=== PATIENT | male | born 1980 | race Caucasian/White ===

== ENCOUNTER 2020-04-14 23:41 | Emergency (ER) | payer OTHER, SELFPAY ==
--- NOTE | ~2020-04-14 | CT_ITS ---
EXAMINATION: CT abdomen pelvis w con DATE: 04/15/2020 00:57 INDICATION: Right lower quadrant abdominal pain. TECHNIQUE: Computed tomography (CT) of the abdomen and pelvis was performed with 100 mL Omnipaque 350 intravenous contrast. Automated exposure control and iterative reconstruction technique were employe d. The dose-length product was 601.55 mGy-cm. COMPARISON: CT abdomen 11/05/2018 FINDINGS: The visualized portions of the lung bases demonstrate mild atelectasis. No pleural effusion . The heart size is normal. No pericardial effusion. There is a large sliding hiatal hernia. The live r, gallbladder, spleen, pancreas, and adrenal glands are normal. There is a 2 mm stone in right kidne y. There are 2 mm and 3 mm stones in left kidney. The appendix is normal. There is wall thickening of ascending colon. There are no dilated loops of bowel. There are no pathologically enlarged lymph nod es. There are changes of umbilical hernia repair. There is a supraumbilical ventral hernia containing fat. There is no free intraperitoneal fluid. There is mild thoracolumbar spondylosis. IMPRESSION: 1. New wall thickening of ascending colon, consistent with colitis. 2. Large sliding hiatal hernia. Reviewed, dictated and finalized at location A.
[2020-04-14 23:51] VITALS: BP 137/89; PULSE 94; RESP 18; TEMP 36.6; O2SAT 97
--- NOTE | 2020-04-15 00:10 | ED.ABDPAIN ---
HPI - Abdominal Pain General Chief Complaint: Abdominal Pain Stated Complaint: RLQ abd pain Time Seen by Provider: 04/14/20 23:45 Source: patient Mode of arrival: ambulatory Limitations: no limitations History of Present Illness HPI narrative: Patient is a 39-year-old male who presents for evaluation of right lower quadrant pain. Pain is been present worsening over the past 48 hours. Described as dull, aching in nature at times it is sharp. No testicular pain, penile pain, dysuria, hematuria or frequency. No upper abdominal pain or chest pain. No fever, chills, nausea or vomiting. Patient was concerned he could have appendicitis, thus he sought care at this emergency department. Patient has history of hernia surgery repair, no other abdominal surgeries. Related Data Home Medications Medication Instructions Recorded Confirmed amlodipine 5 mg tablet 5 mg PO DAILY 09/28/19 12/02/19 melatonin 10 mg capsule PO DAILY cap 09/28/19 12/02/19 omeprazole 20 mg capsule,delayed 20 mg PO DAILY 09/28/19 12/02/19 release ibuprofen 600 mg tablet 600 mg PO TID PRN 12/02/19 12/02/19 ferrous sulfate 325 mg (65 mg 325 mg PO DAILY 01/11/20 iron) tablet ncizhogi-uhs-okhge-vit K-lycop 1 tablet PO DAILY 04/15/20 [Men's Multivitamin] Allergies Allergy/AdvReac Type Severity Reaction Status Date / Time No Known Allergies Allergy Unverified 12/22/18 07:40 Review of Systems Review of Systems: Narrative: CONSTITUTIONAL: Denies fever, chills, or sweats. CARDIOVASCULAR: Denies chest pain RESPIRATORY: Denies cough or dyspnea. GASTROINTESTINAL: Reports right lower quadrant abdominal pain GENITOURINARY: Denies dysuria or hematuria. SKIN: Denies rash or itching. MUSCULOSKELETAL: Denies back pain, joint pain, or myalgia. NEUROLOGIC: Denies headache, numbness, or weakness. [facility] Past Medical History Medical History (Updated 04/15/20 @ 03:15 by Erlinda Valentin MD) Essential (primary) hypertension Iron deficiency Lightheadedness Mixed hyperlipidemia Surgical History Surgical History (Updated 04/15/20 @ 00:12 by Erlinda Valentin MD) History of hernia surgery Family History Family History (Updated 05/25/19 @ 08:02 by DOCTOR UNKNOWN) Mother Patient's mother is , Onset Age: 53 Asthma Family history of alcoholism Family history of malignant neoplasm Sibling Patient's sister is in good health Patient's brother is in good health Other Diabetes mellitus Social History Social History Smoking status: Never smoker Alcohol intake: current Gender identity (if verbalized by the patient): Male Exam Narrative: Exam Narrative: GENERAL: Awake, alert, conversant HEAD: Normocephalic, atraumatic. EYES: PERRLA and EOMI. ENT: Nares clear, no rhinorrhea or epistaxis. Mucous membranes moist. NECK: Supple. CHEST: No respiratory distress, breathing even and non labored HEART: Regular rate, sinus rhythm ABDOMEN:Non distended, right lower quadrant tenderness, no right upper quadrant tenderness, negative Rovsing sign, no rebound or guarding EXTREMITIES: Normal range of motion. No edema. SKIN: Warm, dry, no rash. NEURO:No focal deficits. Alert and oriented x3 Course Vital Signs Vital signs: Vital Signs Temperature 36.6 C 04/14/20 23:51 Pulse Rate 94 04/14/20 23:51 Respiratory Rate 18 04/14/20 23:51 Blood Pressure 137/89 04/14/20 23:51 Pulse Oximetry 97 04/14/20 23:51 Temperature 36.6 C 04/14/20 23:51 Pulse Rate 82 04/15/20 01:35 Respiratory Rate 16 04/15/20 01:35 Blood Pressure 126/87 04/15/20 01:35 Pulse Oximetry 98 04/15/20 01:35 MDM - Abdominal Pain MDM Narrative Medical decision making narrative: Patient presented to the emergency department for evaluation of right-sided abdominal pain. At the time of assessment ABCs are intact and vital signs are stable. Patient with right lower quadrant abdominal ten
[2020-04-15] MEDS: ONDANSETRON INJ 4 MG/2 ML VIAL IV PUSH (00:15)
[2020-04-15] MEDS: MORPHINE SULFATE 4 MG/ML INJ IV PUSH (00:18)
[2020-04-15] MEDS: SODIUM CHLORIDE 0.9% IV 1,000 ML 999 ML IV CONT (00:20)
[2020-04-15 00:28] LABS: Basophils Absolute Auto 0.1 K/mm3 (0.0-0.1); Basophils Percent Auto 0.4 % (0.2-1.2); Eosinophils Absolute Auto 0.3 K/mm3 (0-0.3); Eosinophils Percent Auto 2.3 % (0-4.4); Hematocrit 41.4 % (42.0-52.0); Hemoglobin 14.2 g/dL (14.0-18.0); Immature Granulocyte Absolute 0.04 K/mm3 (0.00-0.031); Immature Granulocyte Percent A 0.3 % (0-0.5); Lymphocytes Absolute Auto 1.86 K/mm3 (0.9-3.2); Lymphocytes Percent Auto 14.1 % (18.3-44.2); Mean Corpuscular HGB Conc 34.3 g/dl (32-36); Mean Corpuscular Hemoglobin 31.6 pg (26-34); Mean Platelet Volume 11.6 fl (7.4-10.4); Monocytes Percent Auto 7.6 % (2.6-8.5); Neutrophils Percent Auto 75.3 % (45.5-73.1); Platelet Count Result 198 k/mm3 (150-375); Red Cell Distribution Width 13.5 % (11.5-14.5); White Blood Count 13.2 K/mm3 (4.5-10.0)
[2020-04-15 00:39] LABS: Alanine Aminotransferase 19 U/L (4-50); Albumin Level 4.1 g/dL (3.5-5.1); Alkaline Phosphatase 80 U/L (38-126); Aspartate Amino Transferase 31 U/L (17-59); Bilirubin,Total 0.4 mg/dL (0.2-1.3); Blood Urea Nitrogen 21 mg/dL (9-20); Calcium 8.7 mg/dL (8.4-10.2); Carbon Dioxide 25 mmol/L (22-30); Chloride 104 mmol/L (98-107); Estimated CRCL calculation 112 ml/min; Estimated Glomerular Filt Rate > 60; Glucose 95 mg/dL (75-110); Lipase 43 U/L (23-300); Potassium 4.1 mmol/L (3.4-5.0); Sodium 136 mmol/L (137-145)
[2020-04-15 01:35] VITALS: BP 126/87; PULSE 82; RESP 16; O2SAT 98
[2020-04-15 02:32] LABS: Add Urine Microscopic? YES; Appearance Urine Clear (Clear); Bilirubin Urine Negative (Negative); Blood Urine Negative (Negative); Color Urine Yellow (Yellow); Glucose Urine UA Negative (Negative); Ketones Urine Negative (Negative); Leukocyte Esterase Ur Negative LEU/UL (Negative); Mucus Urine Rare /lpf; Nitrate Urine Negative (Negative); Protein Urine Negative (Negative); RBC Urine 0-2 /hpf (0-2); Specific Grav Ur 1.026 (1.001-1.035); Squamous Epithelial Cell Urine Rare /hpf (Few); Urobilinogen Urine Negative mg/dL (<2.0); WBC Urine 0-3 /hpf
== END 2020-04-15 01:35 | disposition home or self-care (01) ==
LOC: ANHED 23:58
PROVIDERS: Emergency Provider Emergency Medicine; PCP Family Medicine
DX: K52.9 Noninfective gastroenteritis and colitis, unspecified (principal); I10 Essential (primary) hypertension; E78.2 Mixed hyperlipidemia; D50.9 Iron deficiency anemia, unspecified
CPT/HCPCS: 36415; 74177; 80053; 81001; 83690; 85025; 96361; 96374; 96375; 99284; J0131; J2270; J2405; J7030; Q9967

== ENCOUNTER 2020-11-29 11:33 | Emergency (ER) | payer OTHER, SELFPAY ==
--- NOTE | ~2020-11-29 | XR_ITS ---
EXAMINATION: XR chest 2V EXAM DATE: 11/29/2020 12:06 INDICATION: Acute onset midsternal chest pain. TECHNIQUE: Frontal and lateral projections of the chest obtained and reviewed. Comparison is made to prior examination from 07/14/2018. FINDINGS: There is moderate sliding gastroesophageal hiatal hernia. The lungs are clear. There are no pleural effusions. The cardiomediastinal silhouette is within normal limits. There is no pneumo thorax suspected. The bones and soft tissues are unremarkable. IMPRESSION: Moderate sized gastroesophageal hiatal hernia. Reviewed, dictated and finalized at location B. [employer]
[2020-11-29 11:37] VITALS: BP 138/93; PULSE 90; RESP 16; TEMP 36.2; O2SAT 95
--- NOTE | 2020-11-29 11:41 | ECG_ITS ---
Measurements Intervals [place] Rate: 92 P: 44 AR: 141 QRS: -16 QRSD: 94 T: 24 QT: 335 QTc: 415 Interpretive Statements SINUS RHYTHM BORDERLINE T WAVE ABNORMALITY- INFERIOR LEADS BASELINE WANDER- V2 BORDERLINE ECG Electronically Signed On 11-29-2020 11:47:52 [employer] by Angel Callahan D.O.
[2020-11-29] MEDS: ASPIRIN 81 MG CHEWABLE TABLET 324 MG PO (11:46)
[2020-11-29 11:47] VITALS: PULSE 90
--- NOTE | 2020-11-29 11:55 | ED.CHESTPAIN ---
HPI - Chest Pain General Chief Complaint: Chest Pain Stated Complaint: chest pain Time Seen by Provider: 11/29/20 11:43 History of Present Illness HPI narrative: Constant substernal chest pressure for the past 2-3 hours. Associated with mild SOB. He reports one prior episode a few years ago. At that time he was told that it was due to high blood pressure. He has been out of his BP medication for a few days. He called his PCP this morning to get a refill and they told him to come here. No fever, chills. cough, cough, congestion, nausea. Related Data Home Medications Medication Instructions Recorded Confirmed melatonin 10 mg capsule PO DAILY cap 09/28/19 12/02/19 omeprazole 20 mg capsule,delayed 20 mg PO DAILY 09/28/19 12/02/19 release ibuprofen 600 mg tablet 600 mg PO TID PRN 12/02/19 12/02/19 ferrous sulfate 325 mg (65 mg 325 mg PO DAILY 01/11/20 iron) tablet mfpzahan-xfw-ybstn-vit K-lycop 1 tablet PO DAILY 04/15/20 [Men's Multivitamin] Allergies Allergy/AdvReac Type Severity Reaction Status Date / Time No Known Allergies Allergy Verified 11/29/20 11:41 Review of Systems Review of Systems: All systems reviewed & are unremarkable except as noted in HPI and below Constitutional: Constitutional: Denies chills, Denies fever(s) and Denies weakness ENT: Denies sore throat Cardiovascular: Cardiovascular: Reports chest pain Respiratory: Respiratory: Denies chest congestion, Denies cough and Reports dyspnea Gastrointestinal: Gastrointestinal: Denies abdominal pain and Denies nausea Neurologic: Denies dizziness, Denies numbness and Denies weakness [facility] Past Medical History Medical History Acute bronchitis COVID-19 Essential (primary) hypertension Exposure to COVID-19 virus Fever Iron deficiency Lightheadedness Mixed hyperlipidemia Surgical History Surgical History History of hernia surgery Family History Family History Mother Patient's mother is , Onset Age: 53 Asthma Family history of alcoholism Family history of malignant neoplasm Sibling Patient's sister is in good health Patient's brother is in good health Other Diabetes mellitus Social History Social History Smoking status: Never smoker Alcohol intake: current Gender identity (if verbalized by the patient): Male Exam Const: General: healthy appearing, no acute distress and alert Orientation/consciousness: patient oriented x3 HENMT: Head: normal to inspection Neck: Neck: normal visual inspection and no lymphadenopathy Chest: Chest palpation & inspection: no tenderness Resp: Effort & Inspection: normal respiratory effort Auscultation: clear to auscultation bilaterally, no rales, no rhonchi and no wheezes Cardio: Jugular venous distension: no JVD Rate: regular rate Rhythm: regular rhythm Heart sounds: no murmurs GI: Inspection: non-distended GI Palp: Yes Soft to palpation and No Tenderness to palpation present (GI) Skin: General skin exam: normal color Neuro: General: patient oriented x3, moves all extremities, no focal motor deficits and CN's II-XI intact bilaterally Speech: normal speech Extrem: General: normal to inspection and no edema Psych: Appearance: well kempt Affect: Anxious affect present Course Vital Signs Vital signs: Vital Signs Temperature 36.2 C L 11/29/20 11:37 Pulse Rate 90 11/29/20 11:37 Respiratory Rate 16 11/29/20 11:37 Blood Pressure 138/93 H 11/29/20 11:37 Pulse Oximetry 95 11/29/20 11:37 Temperature 36.2 C L 11/29/20 11:37 Pulse Rate 80 11/29/20 13:10 Respiratory Rate 16 11/29/20 13:10 Blood Pressure 113/60 11/29/20 13:10 Pulse Oximetry 98 11/29/20 13:10 MDM - Chest Pain MDM Narrative Medical d
[2020-11-29] MEDS: amLODIPine BESYLATE 5 MG TABLET PO (12:00)
[2020-11-29 12:03] LABS: Basophils Percent Auto 0.5 % (0.2-1.2); Eosinophils Absolute Auto 0.4 K/mm3 (0-0.3); Eosinophils Percent Auto 4.7 % (0-4.4); Hematocrit 41.7 % (42.0-52.0); Hemoglobin 14.3 g/dL (14.0-18.0); Immature Granulocyte Absolute 0.02 K/mm3 (0.00-0.031); Immature Granulocyte Percent A 0.3 % (0-0.5); Lymphocytes Absolute Auto 1.92 K/mm3 (0.9-3.2); Lymphocytes Percent Auto 25.3 % (18.3-44.2); Mean Corpuscular HGB Conc 34.3 g/dl (32-36); Mean Corpuscular Hemoglobin 31.7 pg (26-34); Mean Corpuscular Volume 92.5 fl (80-100); Mean Platelet Volume 11.7 fl (7.4-10.4); Monocytes Absolute Auto 0.7 K/mm3 (0.1-0.6); Monocytes Percent Auto 8.9 % (2.6-8.5); Neutrophils Absolute Auto 4.6 K/mm3 (1.3-6.7); Neutrophils Percent Auto 60.3 % (45.5-73.1); Platelet Count Result 195 k/mm3 (150-375); Red Blood Count 4.51 M/mm3 (4.6-6.20); Red Cell Distribution Width 12.6 % (11.5-14.5); White Blood Count 7.6 K/mm3 (4.5-10.0)
[2020-11-29 12:12] LABS: Anion Gap 6 mmol/L (8-16); Blood Urea Nitrogen 22 mg/dL (9-20); Calcium 8.5 mg/dL (8.4-10.2); Carbon Dioxide 26 mmol/L (22-30); Chloride 109 mmol/L (98-107); Estimated CRCL calculation 101 ml/min; Estimated Glomerular Filt Rate > 60; Glucose 97 mg/dL (75-110); Potassium 3.9 mmol/L (3.4-5.0); Sodium 141 mmol/L (137-145)
[2020-11-29] MEDS: NITROGLYCERIN SL 0.4 MG TABLET SUBLINGUAL (12:12)
--- NOTE | 2020-11-29 12:13 | PC.NURSE ---
Nitro given SL. Pain 03/06. BP 131/87 P90.
[2020-11-29 12:16] LABS: INR 0.9; Prothrombin Time 12.7 Seconds (11.1-14.7)
--- NOTE | 2020-11-29 12:17 | PC.NURSE ---
Nitro given SL. Pain 03/06. BP 131/78 P90.
[2020-11-29 12:19] LABS: Partial Thromboplastin Time 25.9 SECONDS (22.3-36.8); Troponin I < 0.012 ng/mL (0.000-0.034)
--- NOTE | 2020-11-29 12:28 | PC.NURSE ---
Nitro given SL. Pain 02/04. States only has pain with deep inspiration now. BP 131/85 P 85.
[2020-11-29 13:10] VITALS: BP 113/60; PULSE 80; RESP 16; O2SAT 98
== END 2020-11-29 13:11 | disposition home or self-care (01) ==
PROVIDERS: Emergency Provider Emergency Medicine; PCP Family Medicine
DX: R07.89 Other chest pain (principal); K44.9 Diaphragmatic hernia without obstruction or gangrene; I10 Essential (primary) hypertension; E78.2 Mixed hyperlipidemia; Z86.16 Personal history of COVID-19; E61.1 Iron deficiency; R94.31 Abnormal electrocardiogram [ECG] [EKG]
CPT/HCPCS: 36415; 71046; 80048; 84484; 85025; 85610; 85730; 93005; 99284; A9270

== ENCOUNTER 2021-07-26 11:25 | Observation (INO) | payer OTHER, SELFPAY ==
[2021-07-26] VITALS (36 sets, daily range): BP systolic 126–145; BP diastolic 89–103; PULSE 77–121; RESP 8–27; TEMP 36.3–37.2; O2SAT 92–99; BMI 24.5
--- NOTE | ~2021-07-26 | XR_ITS ---
XR chest 1V portable 07/26/2021 12:05 Indication: Chest pain and dyspnea Procedure: AP portable chest Comparison: Comparison to multiple prior studies sequentially, with oldest reviewed study dated 04/24. Findings: Heart size normal. No focal air space disease, pulmonary edema, pleural effusion or suspect ed pneumothorax. Large hiatal hernia. Impression: 1: No acute cardiopulmonary disease. 2: Large hiatal hernia. Reviewed, dictated and finalized at location A. Impression: 1: No acute cardiopulmonary disease. 2: Large hiatal hernia.
--- NOTE | ~2021-07-26 | CT_ITS ---
EXAMINATION: CTA chest PE protocol DATE: 07/26/2021 12:15 INDICATION: Chest pain, shortness of breath, dyspnea TECHNIQUE: Computed tomography angiography (CTA) of the chest was performed with 100 mL Omnipaque-350 intravenous contrast timed to evaluate the pulmonary arteries. Coronal maximum intensity projection 3D-reconstructions were created by the technologist. Automated exposure control and iterative reconst ruction technique were employed. Exam dose: 390.62 mGy-cm total exam DLP. COMPARISON: 07/26/2021 AP portable chest FINDINGS: There is diagnostic contrast enhancement of the pulmonary arteries and no evidence of pulmo nary embolism. No thoracic aortic aneurysm or dissection. No hilar or mediastinal mass lesion or lymphadenopathy. Normal heart size. No pericardial or pleural effusion. Large sliding hiatal hernia. There is associated mild compressive atelectasis at the left lower lobe due to the large hiatal hernia. There is mild groundglass infiltrate and/or scarring at the right apex, minimal left apical scarring. Otherwise no pulmonary infiltrate or consolidation or pulmonary mass lesion is noted. Normal morphology of the adrenal glands. Included skeletal structures are unremarkable other than mild degenerative spurring of the thoracic s pine. No suspicious osteolytic or osteoblastic lesions. IMPRESSIONS: No evidence of pulmonary embolism Minimal groundglass infiltrate and/or scarring, right apical area, minimal left apical scarring Large sliding hiatal hernia with associated minimal surrounding compressive left lower lobe atelectas is Reviewed, dictated and finalized at Location A. Reviewed, dictated and finalized at location B. IMPRESSIONS: No evidence of pulmonary embolism Minimal groundglass infiltrate and/or scarring, right apical area, minimal left apical scarring Large sliding hiatal hernia with associated minimal surrounding compressive lef t lower lobe atelectasis
--- NOTE | ~2021-07-26 | US_ITS ---
EXAMINATION: US abdomen limited EXAM DATE: 07/27/2021 11:09 INDICATION: Epigastric pain. TECHNIQUE: Multiple grayscale and Doppler images of the abdomen right upper quadrant were obtained (jesus y a technologist who performed the scan) and subsequently reviewed. There is no prior study for ally alarcon. FINDINGS: The pancreatic head and body are normal in appearance. The pancreatic tail is not visualized. The l iver has normal echogenicity and contour. There are no focal liver lesions identified. There is no evidence of intrahepatic biliary duct dilation. Portal venous flow was seen in the hepatopedal, nor mal direction and has normal Doppler waveform. No right-sided hydronephrosis. Common bile duct measures 4 mm, which is normal. The gallbladder wall is normal in thickness, with ex pected amount of distention. No sonographic evidence of pericholecystic fluid. There is no cholelit hiases. Technologist performing exam reports patient did not demonstrate sonographic Bazzi's sign. Please note that this sign is less reliable in patients who have received pain medication. IMPRESSION: 1. Unremarkable abdominal ultrasound exam. Reviewed, dictated and finalized at location A.
--- NOTE | 2021-07-26 11:38 | ECG_ITS ---
Measurements Intervals [place] Rate: 95 P: 49 MA: 136 QRS: -17 QRSD: 92 T: 35 QT: 340 QTc: 428 Interpretive Statements SINUS RHYTHM POSSIBLE LEFT ATRIAL ENLARGEMENT INCOMPLETE RIGHT BUNDLE BRANCH BLOCK BASELINE ARTIFACT- I, II, AVR, AVF, V1, V3-V6 BORDERLINE ECG Electronically Signed On 07-26-2021 13:01:30 CDT by Angel Callahan D.O.
--- NOTE | 2021-07-26 11:40 | ED.CHESTPAIN ---
HPI - Chest Pain General Chief Complaint: Chest Pain Stated Complaint: CHEST PRESSURE Time Seen by Provider: 07/26/21 11:29 Source: RN notes reviewed History of Present Illness HPI narrative: Patient presents emergency department from home for chest pain. Patient states pain began this morning upon awaking is located in the midsternal chest described as a pressure in nature and does not radiate he states is progressively gotten worse he states the pain is worse with activity and improved with rest but does not resolve notes mild associated shortness of breath he denies any fevers or chills abdominal pain nausea vomiting or any other symptoms states he took ibuprofen at home for the pain with minimal relief Related Data Home Medications Medication Instructions Recorded Confirmed omeprazole 20 mg capsule,delayed 20 mg PO DAILY 09/28/19 04/05/21 release ibuprofen 600 mg tablet 600 mg PO TID PRN 12/02/19 04/05/21 iulwoemp-tof-upliu-vit K-lycop 1 tablet PO DAILY 04/15/20 04/05/21 [Men's Multivitamin] melatonin 10 mg capsule 5 mg PO DAILY cap 04/05/21 04/05/21 Allergies Allergy/AdvReac Type Severity Reaction Status Date / Time No Known Allergies Allergy Verified 07/26/21 11:33 Review of Systems Review of Systems: Gen.: Denies fevers or chills ENT: Denies congestion Respiratory: Denies shortness of breath or cough CV: See HPI GI: Denies abdominal pain nausea, emesis or diarrhea Musculoskeletal: Denies back pain or muscle pain Neuro: Denies numbness, tingling, weakness or focal weakness Skin: Denies rash Except as documented, all other systems reviewed and negative [facility] Past Medical History Medical History Acute bronchitis BMI 25.0-25.9,adult COVID-19 (~09/30/20) Encounter for prostate cancer screening Essential (primary) hypertension Exposure to COVID-19 virus Fever Fever blister Iron deficiency Lightheadedness Male erectile dysfunction, unspecified Mixed hyperlipidemia Pharyngitis Surgical History Surgical History History of hernia surgery Family History Family History Mother Patient's mother is , Onset Age: 53 Asthma Family history of alcoholism Family history of malignant neoplasm Sibling Patient's sister is in good health Patient's brother is in good health Other Diabetes mellitus Social History Social History Smoking status: Never smoker Alcohol intake: current Substance use: never Substance use type: does not use Gender identity (if verbalized by the patient): Male Exam Narrative: APPEARANCE: No acute distress, nontoxic, resting in bed EYES: EOMI HEENT: Normocephalic, atraumatic, OMM RESPIRATORY: No respiratory distress Clear to auscultation bilaterally with no rhonchi wheezing or rales. CARDIOVASCULAR: Regular rate and rhythm without murmurs rubs or gallops. ABDOMINAL: Soft, nontender, nondistended, no rebound or guarding MUSCULOSKELETAl: Moves all extremities. No clubbing, cyanosis or edema. NEURO: Awake and alert. Following commands, speech normal, no focal deficits SKIN:: Warm, dry. No rashes lesions or abrasions PSYCHIATRIC: Normal affect/mood, Course Course Emergency Course: Patient CTA of the chest feel this is likely scarring and not mild infiltrate patient has had no fever white count or cough Discussed with KIMBERLEE Burch for Dr Mota presentation work-up agrees with admission at this time Discussed with Dr. George presentation work-up agrees with consult Discussed with patient and family results of workup and diagnosis. Discussed need for admission. Patient and family understand and agree to current treatment plan Vital Signs Vital signs: Vital Signs Temperature 99 F 07/26/21 11:30 Pulse Rate 97 07/26/21 11:30 Re
[2021-07-26 11:46] LABS: Basophils Absolute Auto 0.1 K/mm3 (0.0-0.1); Basophils Percent Auto 0.8 % (0.2-1.2); Eosinophils Absolute Auto 0.3 K/mm3 (0-0.3); Eosinophils Percent Auto 4.1 % (0-4.4); Hematocrit 40.2 % (42.0-52.0); Hemoglobin 14.2 g/dL (14.0-18.0); Immature Granulocyte Absolute 0.01 K/mm3 (0.00-0.031); Immature Granulocyte Percent A 0.2 % (0-0.5); Lymphocytes Absolute Auto 1.65 K/mm3 (0.9-3.2); Mean Corpuscular HGB Conc 35.3 g/dl (32-36); Mean Corpuscular Hemoglobin 32.6 pg (26-34); Mean Corpuscular Volume 92.2 fl (80-100); Mean Platelet Volume 11.3 fl (7.4-10.4); Monocytes Absolute Auto 0.6 K/mm3 (0.1-0.6); Monocytes Percent Auto 9.5 % (2.6-8.5); Neutrophils Percent Auto 60.4 % (45.5-73.1); Platelet Count Result 216 k/mm3 (150-375); Red Blood Count 4.36 M/mm3 (4.6-6.20); Red Cell Distribution Width 13.2 % (11.5-14.5); White Blood Count 6.6 K/mm3 (4.5-10.0)
[2021-07-26 11:57] LABS: Alanine Aminotransferase 22 U/L (4-50); Albumin Level 4.2 g/dL (3.5-5.1); Alkaline Phosphatase 73 U/L (38-126); Anion Gap 9 mmol/L (8-16); Aspartate Amino Transferase 27 U/L (17-59); Bilirubin,Total 0.5 mg/dL (0.2-1.3); Blood Urea Nitrogen 21 mg/dL (9-20); Carbon Dioxide 22 mmol/L (22-30); Chloride 109 mmol/L (98-107); Estimated CRCL calculation 101 ml/min; Estimated Glomerular Filt Rate > 60; Glucose 118 mg/dL (65-110); Lipase 76 U/L (23-300); Sodium 140 mmol/L (137-145)
[2021-07-26 12:08] LABS: Troponin I < 0.012 ng/mL (0.000-0.034)
[2021-07-26 12:15] LABS: INR 0.9; Prothrombin Time 11.8 Seconds (11.1-14.7)
[2021-07-26 12:16] LABS: Partial Thromboplastin Time 24.8 SECONDS (22.3-36.8)
[2021-07-26] MEDS: MORPHINE SULFATE (*CRX) 4 MG/ML INJ IV PUSH (13:18)
[2021-07-26 14:59] LABS: Troponin I < 0.012 ng/mL (0.000-0.034)
--- NOTE | 2021-07-26 15:20 | PC.NURSE ---
admission orders written. waiting bed assignment
[2021-07-26] MEDS: PANTOPRAZOLE SODIUM IV 40 MG VIAL IV PUSH (17:17)
[2021-07-26] MEDS: MORPHINE SULFATE (*CRX) 2 MG/ML INJ IV PUSH ×2 (17:17→20:55)
[2021-07-26] MEDS: ASPIRIN 81 MG CHEWABLE TABLET 324 MG PO (17:18)
--- NOTE | 2021-07-26 17:18 | PC.NURSE ---
states cp is increasing to 10. meds given per order. aware of bed status and plan of care.
--- NOTE | 2021-07-26 18:57 | PC.NURSE ---
This patient, Mainor Suarez, was admitted to [facility]. Patient/family oriented to hospital policies and general routines including ID bracelet, bed and alarms, visiting hours, pain management, procedures, bathroom and other care routines, personal items, smoking policy, room service/diet, and visiting hours. Information on how to activate the Rapid Response Team has been discussed. Patient/Family are encouraged to report perceived risks to care and to ask questions if they do not understand what they are told or what they should do.
[2021-07-26 19:36] LABS: Troponin I < 0.012 ng/mL (0.000-0.034)
--- NOTE | 2021-07-26 21:33 | PM.IMHP ---
H&P: HPI History of Present Illness Date/Time: 07/26/21 21:33 this is a 40-year-old male patient who stated he started to feel nauseated couple days ago. He did have any chest pain until today around 4:00 a.m. this morning. He woke up with chest pain but really was not that bad. The patient went to work any stated as his day when on any moved around more his pain got worse. His pain was midsternal. He thinks that he might had a muscle spasm his left arm earlier but it did not last very long. The patient stated he has had a poor appetite for 2 days. He is complaining of some epigastric discomfort. He states he does have acid reflux but this is different from his acid reflux. The patient stated that he took naproxen at work and does not seem to help the pain. Chest CTA was read as no evidence of pulmonary embolism. Minimal ground-glass infiltrate or scarring right apical area minimal left apical scarring. Large sliding hiatal hernia with associated minimal surrounding compressive left lower lobe atelectasis. Chest x-ray was read as no acute cardiopulmonary disease large hiatal hernia. He does have a history of hypertension. The patient was given a GI cocktail in the emergency room, IV Protonix, aspirin and morphine. The patient is being admitted to observation status on the date of service of 07/26/2021 Chief Complaint: Chest pain Review of Systems Review of Systems: All systems reviewed & are unremarkable except as noted in HPI and below Constitutional: Constitutional: Reports as per HPI and Reports no additional constitutional complaints Eyes: Eyes: Reports as per HPI and Reports no additional eye complaints ENT: Reports system reviewed and no additional complaints, except as documented and Reports Normal hearing present Cardiovascular: Cardiovascular: Reports no additional cardiovascular complaints Respiratory: Respiratory: Reports no additional respiratory complaints and Reports no additional respiratory complaints Gastrointestinal: Gastrointestinal: Reports as per HPI and Reports no additional gastrointestinal complaints Musculoskeletal: Musculoskeletal: Reports no additional musculoskeletal complaints Integumentary/Breasts: Skin/Breast: Reports system reviewed and no additional complaints, except as docu and Reports as per HPI Neurologic: Reports system reviewed and no additional complaints, except as documented, Reports as per HPI and Reports Normal hearing present Psychiatric: Psychiatric: Reports no additional psychiatric complaints and Reports as per HPI Endocrine: Endocrine: Reports no additional endocrine complaints Hematologic/Lymphatic: Hematologic/Lymphatic: Reports no additional hematologic/lymphatic complaints Allergic/Immunologic: Allergic/Immunologic: Reports no additional allergic/immunologic complaints [facility] Past Medical History Medical History Acute bronchitis BMI 25.0-25.9,adult COVID-19 (~09/30/20) Encounter for prostate cancer screening Essential (primary) hypertension Exposure to COVID-19 virus Fever Fever blister Iron deficiency Lightheadedness Male erectile dysfunction, unspecified Mixed hyperlipidemia Pharyngitis Surgical History Surgical History History of hernia surgery Family History Family History Mother Patient's mother is , Onset Age: 53 Asthma Family history of alcoholism Family history of malignant neoplasm Sibling Patient's sister is in good health Patient's brother is in good health Other Diabetes mellitus Social History Social History (Updated 07/26/21 @ 21:42 by Kiersten Tovar NP) Social History: The patient lives with his Vero who is his durable power assistant editor for healthcare. The patient is a full code. The patient has no children. The patient works at [employer]. The patient
[2021-07-26] MEDS: QUEtiapine FUMARATE 25 MG TABLET 50 MG PO (21:49)
[2021-07-26] MEDS: MELATONIN 5 MG TABLET PO (21:49)
[2021-07-27] VITALS (13 sets, daily range): BP systolic 121–136; BP diastolic 82–96; PULSE 70–95; RESP 12–16; TEMP 35.8–36.6; O2SAT 94–98
[2021-07-27] MEDS: MORPHINE SULFATE (*CRX) 2 MG/ML INJ IV PUSH ×4 (01:58→21:20)
[2021-07-27 06:18] LABS: Basophils Percent Auto 0.5 % (0.2-1.2); Eosinophils Absolute Auto 0.3 K/mm3 (0-0.3); Eosinophils Percent Auto 4.6 % (0-4.4); Hematocrit 40.5 % (42.0-52.0); Immature Granulocyte Absolute 0.01 K/mm3 (0.00-0.031); Immature Granulocyte Percent A 0.2 % (0-0.5); Lymphocytes Absolute Auto 1.73 K/mm3 (0.9-3.2); Lymphocytes Percent Auto 31.6 % (18.3-44.2); Mean Corpuscular HGB Conc 34.6 g/dl (32-36); Mean Corpuscular Hemoglobin 32.6 pg (26-34); Mean Corpuscular Volume 94.2 fl (80-100); Mean Platelet Volume 10.9 fl (7.4-10.4); Monocytes Absolute Auto 0.6 K/mm3 (0.1-0.6); Monocytes Percent Auto 10.4 % (2.6-8.5); Neutrophils Absolute Auto 2.9 K/mm3 (1.3-6.7); Neutrophils Percent Auto 52.7 % (45.5-73.1); Platelet Count Result 179 k/mm3 (150-375); Red Cell Distribution Width 13.3 % (11.5-14.5); White Blood Count 5.5 K/mm3 (4.5-10.0)
[2021-07-27 06:36] LABS: Alanine Aminotransferase 19 U/L (4-50); Albumin Level 3.9 g/dL (3.5-5.1); Alkaline Phosphatase 65 U/L (38-126); Anion Gap 6 mmol/L (8-16); Aspartate Amino Transferase 21 U/L (17-59); Bilirubin,Total 0.6 mg/dL (0.2-1.3); Blood Urea Nitrogen 19 mg/dL (9-20); CRP < 0.5 mg/dL (<1.0); Calcium 8.4 mg/dL (8.4-10.2); Carbon Dioxide 28 mmol/L (22-30); Chloride 105 mmol/L (98-107); Cholesterol 184 mg/dL (0-200); Estimated CRCL calculation 101 ml/min; Estimated Glomerular Filt Rate > 60; Glucose 103 mg/dL (65-110); HDL Direct 43 mg/dL; Lactate Dehydrogenase 372 U/L (313-618); Lipase 45 U/L (23-300); Magnesium 2.2 mg/dL (1.6-2.3); Potassium 3.6 mmol/L (3.4-5.0); Sodium 139 mmol/L (137-145); Triglycerides 133 mg/dL (<150)
[2021-07-27 06:49] LABS: LDL Cholesterol Direct 112 mg/dL
[2021-07-27 08:02] LABS: Lactic Acid Reflex 0.6 mmol/L (0.7-2.1)
[2021-07-27] MEDS: amLODIPine BESYLATE 5 MG TABLET PO (08:07)
[2021-07-27] MEDS: ESCITALOPRAM OXALATE 10 MG TABLET PO (08:07)
[2021-07-27] MEDS: ENOXAPARIN 40 MG/0.4 ML SYRINGE SUB-Q (08:08)
[2021-07-27] MEDS: PANTOPRAZOLE SODIUM IV 40 MG VIAL IV PUSH ×2 (08:08→21:20)
[2021-07-27] MEDS: THERAPEUTIC MULTIVITAMINS/MINERALS TAB (*BKC) 1 TABLET PO (08:08)
--- NOTE | 2021-07-27 08:30 | PM.CNCAR ---
Assessment and Plan Assessment and plan (1) Chest pain: Code(s): R07.9 - Chest pain, unspecified <FARZANA Eduardo - Last Filed: 07/28/21 11:11> Status: Acute <FARZANA Eduardo - Last Filed: 07/28/21 11:11> Assessment and Plan: Presents with complaints of chest discomfort that started early yesterday morning. Atypical sounding chest pain. Serial troponins negative and EKG did not have any ischemic ST or T changes. Does not have risk factors for coronary artery disease, HEART score is 1 (hypertension). No indication for further cardiac workup at this time. <FARZANA Eduardo - Last Filed: 07/28/21 11:11> Additional Plan Addendum Patient seen, chart reviewed. Agree with nurse practitioner Nola Kahn's assessment and plan. Patient developed lower sternal epigastric pain yesterday which has been fairly intense at times, somewhat pleuritic, and on exam there is tenderness to palpation of the epigastric area. No pericardial or pleural friction rub. Some shortness of breath. One episode of diarrhea earlier this week. EKG on my personal review shows sinus rhythm with no ischemic changes, troponins negative, so no evidence of ACS. No evidence PE, pericarditis, or aortic dissection by CT scan. Liver enzymes and gallbladder ultrasound were unremarkable. Pancreatic enzymes have not been checked but there is no radiation to the back, and pleurisy seems unlikely. The only thing that has shown up is a hiatal hernia. No cardiovascular issues noted and I do not recommend any further cardiovascular testing. Okay for discharge from my point of view. <Tessie George MD - Last Filed: 07/27/21 17:30> History of Present Illness History of Present Illness Consult date/time: 07/27/21 08:30 <FARZANA Eduardo - Last Filed: 07/28/21 11:11> Requesting physician: Felipe Bautista DO <FARZANA Eduardo - Last Filed: 07/28/21 11:11> Reason For Visit: chest pain <FARZANA Eduardo - Last Filed: 07/28/21 11:11> Narrative: Mr. Suarez is a 40-year-old male who I am seeing at the request of Dr. Bautista for advice and opinion regarding his chest pain. This is a patient with a past medical history of hypertension, GERD, and hiatal hernia who presented to the emergency department to be evaluated for some chest discomfort that he developed while he was at work yesterday morning. 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 He says that the pain began early yesterday morning and continued as he was working throughout the day. He called his primary doctor who recommended that he present to the emergency room for evaluation. He describes the pain as a tightness that feels like someone is sitting on his chest. He says that the pain is worse when he tries to take a deep breath and for this reason feels like he is unable to get a full breath whenever he breathes in. The pain is located in his epigastric area. When the pain is at its worst he rates the intensity at 8 out of 10. He denies any radiation of pain to his arm, neck, jaw. He does say that he also noticed some lower back pain but this is more of a chronic issue. He has been experiencing some nausea for about 2-3 days therefore, he has not eaten much. He denies any shortness of breath but as described above is having some difficulty taking full breaths. The pain has been partially relieved by morphine however, the pain has never fully subsided it has remained constant since its onset yesterday morning. Patient is also complaining of right upper quadrant tenderness. He does not have any personal cardiac history and is not aware of any family cardiac history. Currently, he is still experiencing discomfort in his chest and is very tender to the right upper quadrant area. He is otherwise not in any distress. <FARZANA Eduardo - Last Filed: 07/28/21 11:11> Review of Systems Review of Systems: All syst
--- NOTE | 2021-07-27 14:39 | PM.IMPN ---
Progress Note: A&P Assessment and Plan (1) Chest pain: Code(s): R07.9 - Chest pain, unspecified Status: Acute Assessment and Plan: Patient's chest x-ray shows a large hiatal hernia. His chest CTA shows no evidence of any pulmonary embolism. Also seen is a large sliding hiatal hernia. The patient has some epigastric discomfort. I did continue with his morphine is his troponins are negative x3. He does show a right bundle branch block on his EKG. Cardiology has been consulted. 07/27 Internal history patient presented with chest pain patient cardiac workup essentially normal seen by phlebotomist associate and does not recommend any ischemic work up, patient complains of epigastric pain and pain is reproducible upon palpation, patient has significant Hiatal hernia causing him gastric pain will consult GI and further recommendation to follow. (2) Essential (primary) hypertension: Code(s): I10 - Essential (primary) hypertension Status: Acute Assessment and Plan: Continue with amlodipine (3) Mixed hyperlipidemia: Code(s): E78.2 - Mixed hyperlipidemia Status: Acute Assessment and Plan: Check lipid profile in the a.m.. (4) Chronic anxiety: Code(s): F41.9 - Anxiety disorder, unspecified Status: Acute Assessment and Plan: Continue with patient's Lexapro in the morning and Seroquel at night. Subjective Date/time seen: 07/27/21 14:39 this is a 40-year-old male patient who stated he started to feel nauseated couple days ago. He did have any chest pain until today around 4:00 a.m. this morning. He woke up with chest pain but really was not that bad. The patient went to work any stated as his day when on any moved around more his pain got worse. His pain was midsternal. He thinks that he might had a muscle spasm his left arm earlier but it did not last very long. The patient stated he has had a poor appetite for 2 days. He is complaining of some epigastric discomfort. He states he does have acid reflux but this is different from his acid reflux. The patient stated that he took naproxen at work and does not seem to help the pain. Chest CTA was read as no evidence of pulmonary embolism. Minimal ground-glass infiltrate or scarring right apical area minimal left apical scarring. Large sliding hiatal hernia with associated minimal surrounding compressive left lower lobe atelectasis. Chest x-ray was read as no acute cardiopulmonary disease large hiatal hernia. He does have a history of hypertension. The patient was given a GI cocktail in the emergency room, IV Protonix, aspirin and morphine. The patient is being admitted to observation status on the date of service of 07/26/202107/27 Internal history patient presented with chest pain patient cardiac workup essentially normal seen by phlebotomist associate and does not recommend any ischemic work up, patient complains of epigastric pain and pain is reproducible upon palpation, patient has significant Hiatal hernia causing him gastric pain will consult GI and further recommendation to follow. Review of Systems Review of Systems: All systems reviewed & are unremarkable except as noted in HPI and below Exam Narrative: Patient is comfortable, NAD HEENT: eyes are clear and none icteric LUNGS: normal respiratory effort ABD: BS+, Soft and tender in epigastric Lower extremities: no edema SKIN: nonjaundiced Neuro: grossly intact. Objective Data Vital Signs Vital Signs: Vital Signs - 24 hr 07/26/21 14:52 07/26/21 15:00 07/26/21 15:15 Temperature Pulse Rate 84 88 95 Respiratory Rate 10 L 14 22 H Blood Pressure Pulse Oximetry 96 95 96 07/26/21 15:38 07/26/21 15:58 07/26/21 16:00 Temperature Pulse Rate 97 121 H 116 H Respiratory Rate 19 13 20 Blood Pressure Pulse Oximetry 98 97 99 07/26/21 16:20 07/26/21 16:37 07/26/21 17:16 Temperature Pulse Rate 89 84 97 Respiratory Rate 15 18 19 Blood Pressure
[2021-07-27] MEDS: CALCIUM CARBONATE (TUMS) 500 MG (200 MG ELEMENTAL) PO (17:23)
[2021-07-27] MEDS: ACETAMINOPHEN 325 MG TABLET 650 MG PO (19:01)
[2021-07-27] MEDS: MELATONIN 5 MG TABLET PO (21:20)
[2021-07-27] MEDS: QUEtiapine FUMARATE 25 MG TABLET 50 MG PO (21:20)
[2021-07-28] VITALS (14 sets, daily range): BP systolic 96–149; BP diastolic 59–91; PULSE 64–96; RESP 11–17; TEMP 35.6–36.8; O2SAT 94–99
--- NOTE | 2021-07-28 06:38 | WPDGICN ---
Assessment and Plan Assessment and plan (1) Chest pain: Code(s): R07.9 - Chest pain, unspecified Status: Acute Assessment and Plan: cardiac disease has been ruled out. This also does not sound like typical acid reflux type pain because it is continuous and constant. He his use of NSAIDs raises the possibility of peptic ulcer disease, gastric ulcer in particular. However with his chronic use of omeprazole that should also decrease that probability . He will be scheduled for EGD to be done later this morning. I have explained to him the procedure and risks such as the possibilities of bleeding or perforation and also the possibility of cardiopulmonary complications and the use of monitored anesthesia care by Anesthesia. (2) Hernia, hiatal: Code(s): K44.9 - Diaphragmatic hernia without obstruction or gangrene Status: Acute Assessment and Plan: with a large hiatal hernia like his, there is a possibility of intermittent torsion. That would result in acute pain and would be temporary. Nevertheless I did tell him that if we determine that his hiatal hernia is causing symptoms or no other etiology is found, that surgical repair may be appropriate GI Consult Note Consult date/time: 07/28/21 06:38 HPI: Mainor Suarez is a 40 year old male Was admitted after he developed subxiphoid and lower substernal pain 2 days ago. It progressively got worse during the day, prompting him to visit the emergency room. From there he was admitted with concern about possible cardiac disease. Fortunately troponins have been negative. EKG reveals sinus rhythm with no acute changes. He had a CT scan showing a large hiatal hernia, which has been seen on previous studies. I have personally reviewed this CT of the chest as well as his previous exam from a little over 1 year ago, both of which show a significant portion of the stomach above the diaphragm. The patient denies having dysphagia. He states his pain is not worse after eating. He does have chronic heartburn for which he takes omeprazole and he believes that this is helpful. He has had no recent weight loss or vomiting. Weight has been stable. His to bowels tend to be loose but there has been no other change in bowel habits. The pain he states is still there, down to about of 5 level now. If anything it may be a little worse with movement. There is no history of liver disease gallbladder or pancreatic disease. He has never had an ulcer. He does use NSAIDs regularly, ibuprofen. Abdominal ultrasound yesterday was negative for gallbladder disease. Review of Systems Review of Systems: All systems reviewed & are unremarkable except as noted in HPI and below PMFSH Past Medical History Medical History Acute bronchitis BMI 25.0-25.9,adult COVID-19 (~09/30/20) Encounter for prostate cancer screening Essential (primary) hypertension Exposure to COVID-19 virus Fever Fever blister Iron deficiency Lightheadedness Male erectile dysfunction, unspecified Mixed hyperlipidemia Pharyngitis Surgical History Surgical History History of hernia surgery Family History Family History Mother Patient's mother is , Onset Age: 53 Asthma Family history of alcoholism Family history of malignant neoplasm Sibling Patient's sister is in good health Patient's brother is in good health Other Diabetes mellitus Social History Social History Social History: The patient lives with his Vreo who is his durable power corporate associate attorney for healthcare. The patient is a full code. The patient has no children. The patient works at [employer]. The patient is lifelong nonsmoker. He does not use any alcohol marijuana or illicit drugs. Smoking status: Never smoker
[2021-07-28] MEDS: PANTOPRAZOLE SODIUM IV 40 MG VIAL IV PUSH (08:00)
[2021-07-28] MEDS: ENOXAPARIN 40 MG/0.4 ML SYRINGE SUB-Q (08:00)
[2021-07-28] MEDS: MORPHINE SULFATE (*CRX) 2 MG/ML INJ IV PUSH (08:01)
--- NOTE | 2021-07-28 11:18 | PC.NURSE ---
1100 - Pt off to floor to endoscopy.
[2021-07-28] MEDS: LACTATED RINGERS 1,000 ML 150 ML IV CONT (11:30)
--- NOTE | 2021-07-28 11:30 | WPDANESEPPF ---
Anes - Initial Pre Proc Eval Procedure: Operation Date: 07/28/21 11:30 Proposed Procedures p Esophagogastroduodenoscopy - Karl Deshpande MD Date/Time: 07/28/21 11:30 Surgeon: Gerber Mota MD Pre Op Diagnosis: chest pain Patient Data Age: 40 Gender: M Height: 1.88 m Weight: 85.9 kg Last Vital Signs Temp 97.3 F L 07/28/21 11:23 Pulse 66 07/28/21 11:23 Resp 12 07/28/21 11:23 BP 127/86 07/28/21 11:23 Pulse Ox 99 07/28/21 11:23 Allergies Allergy/AdvReac Type Severity Reaction Status Date / Time No Known Allergies Allergy Verified 07/28/21 11:19 Home Medications Medication Instructions Recorded Confirmed Type omeprazole 20 mg capsule,delayed 20 mg PO DAILY 09/28/19 07/26/21 History release ibuprofen 600 mg tablet 600 mg PO TID PRN 12/02/19 07/26/21 History xpsgkdpg-vwt-xukir-vit K-lycop 1 tablet PO DAILY 04/15/20 07/26/21 History [Men's Multivitamin] amlodipine 5 mg tablet 5 mg PO DAILY #90 tablet 11/29/20 07/26/21 Rx quetiapine 50 mg tablet 50 mg PO QHS #30 tablet 01/26/21 07/26/21 Rx escitalopram oxalate 10 mg tablet 10 mg PO DAILY #90 tablet 04/05/21 07/26/21 Rx melatonin 10 mg capsule 5 mg PO DAILY cap 04/05/21 07/26/21 History sildenafil (pulm.hypertension) See Rx Instructions PO ONCE PRN 07/26/21 07/26/21 History Patient hx anesthesia problems: none Family hx anesthesia problems: none Results Review: All pre-operative results and documents have been reviewed as part of the pre-operative evaluation. [facility] Past Medical History Medical History Acute bronchitis BMI 25.0-25.9,adult COVID-19 (~09/30/20) Encounter for prostate cancer screening Essential (primary) hypertension Exposure to COVID-19 virus Fever Fever blister Iron deficiency Lightheadedness Male erectile dysfunction, unspecified Mixed hyperlipidemia Pharyngitis Surgical History Surgical History History of hernia surgery Family History Family History Mother Patient's mother is , Onset Age: 53 Asthma Family history of alcoholism Family history of malignant neoplasm Sibling Patient's sister is in good health Patient's brother is in good health Other Diabetes mellitus Social History Social History Social History: The patient lives with his Vero who is his durable power deputy prosecuting attorney for healthcare. The patient is a full code. The patient has no children. The patient works at [employer]. The patient is lifelong nonsmoker. He does not use any alcohol marijuana or illicit drugs. Smoking status: Never smoker Alcohol intake: current Drinks per week: 3 Substance use: never Substance use type: does not use Gender identity (if verbalized by the patient): Male Spiritual care concerns: No Anes - Eval Final PreProcedure Day of Procedure 07/28/21 11:30 Patient weight: overweight Heart: regular rate and rhythm Lungs: clear to auscultation Airway: Mallampati scale class II Neurological: alert and oriented Last oral intake: >/= 8 hours ASA classification: III Emergent: no Anesthetic plan: proceed Anesthesia type and monitoring: general GIVS and standard monitoring Results Review: All pre-operative results and documents have been reviewed as part of the pre-operative evaluation. Informed Consent: The patient's anesthetic plan and its attendant risks and benefits were discussed with the patient/family/POA. Questions were solicited and answers provided to the satisfaction of the patient/family/POA.
[2021-07-28] MEDS: BENZOCAINE (*SP) 60 ML SPRAY CAN (HURRICAINE) 1 SPRAY MUCOUS MEM (11:36)
[2021-07-28] MEDS: amLODIPine BESYLATE 5 MG TABLET PO (13:22)
[2021-07-28] MEDS: ESCITALOPRAM OXALATE 10 MG TABLET PO (13:23)
[2021-07-28] MEDS: THERAPEUTIC MULTIVITAMINS/MINERALS TAB (*BKC) 1 TABLET PO (13:23)
--- NOTE | 2021-07-28 13:46 | PC.NURSE ---
1230- Pt returned from endoscopy
--- NOTE | 2021-07-28 13:49 | PC.NURSE ---
1335 - Pt c/o pain 04/06,no orders noted for moderate pain,Dr. Bryson called to notify and orders noted.
[2021-07-28] MEDS: HYDROcodone/acetaminophen (*CRX) 5-325 MG TABLET 1 TAB PO (14:03)
--- NOTE | 2021-07-28 14:22 | PM.DS ---
DS: Admitting Diagnosis Discharge Date 07/28/2021 Admitting Diagnosis Chief Complaint: Chest pain DS: Discharge Diagnosis Discharge Diagnosis (1) Chest pain: Code(s): R07.9 - Chest pain, unspecified Status: Acute Assessment and Plan: Patient's chest x-ray shows a large hiatal hernia. His chest CTA shows no evidence of any pulmonary embolism. Also seen is a large sliding hiatal hernia. The patient has some epigastric discomfort. I did continue with his morphine is his troponins are negative x3. He does show a right bundle branch block on his EKG. Cardiology has been consulted. 07/27 Internal history patient presented with chest pain patient cardiac workup essentially normal seen by hospice registered nurse and does not recommend any ischemic work up, patient complains of epigastric pain and pain is reproducible upon palpation, patient has significant Hiatal hernia causing him gastric pain will consult GI and further recommendation to follow. (2) Essential (primary) hypertension: Code(s): I10 - Essential (primary) hypertension Status: Acute Assessment and Plan: Continue with amlodipine (3) Mixed hyperlipidemia: Code(s): E78.2 - Mixed hyperlipidemia Status: Acute Assessment and Plan: Check lipid profile in the a.m.. (4) Chronic anxiety: Code(s): F41.9 - Anxiety disorder, unspecified Status: Acute Assessment and Plan: Continue with patient's Lexapro in the morning and Seroquel at night. DS: Summary Hospital Course Reason for hospitalization: this is a 40-year-old male patient who stated he started to feel nauseated couple days ago. He did have any chest pain until today around 4:00 a.m. this morning. He woke up with chest pain but really was not that bad. The patient went to work any stated as his day when on any moved around more his pain got worse. His pain was midsternal. He thinks that he might had a muscle spasm his left arm earlier but it did not last very long. The patient stated he has had a poor appetite for 2 days. He is complaining of some epigastric discomfort. He states he does have acid reflux but this is different from his acid reflux. The patient stated that he took naproxen at work and does not seem to help the pain. Chest CTA was read as no evidence of pulmonary embolism. Minimal ground-glass infiltrate or scarring right apical area minimal left apical scarring. Large sliding hiatal hernia with associated minimal surrounding compressive left lower lobe atelectasis. Chest x-ray was read as no acute cardiopulmonary disease large hiatal hernia. He does have a history of hypertension. The patient was given a GI cocktail in the emergency room, IV Protonix, aspirin and morphine. The patient is being admitted to observation status on the date of service of 07/26/2021 Chief Complaint: Chest pain Hospital Course: Patient's chest x-ray shows a large hiatal hernia. His chest CTA shows no evidence of any pulmonary embolism. Also seen is a large sliding hiatal hernia. The patient has some epigastric discomfort. I did continue with his morphine is his troponins are negative x3. He does show a right bundle branch block on his EKG. Cardiology has been consulted. 07/27 Internal history patient presented with chest pain patient cardiac workup essentially normal seen by hospice registered nurse and does not recommend any ischemic work up, patient complains of epigastric pain and pain is reproducible upon palpation, patient has significant Hiatal hernia causing him gastric pain will consult GI and further recommendation to follow. Patient was seen Gi and had EGD and it showed hiatal hernia, most likely causing chest pain like symptoms. Status at Discharge Functional status at discharge: independent ambulation Overall status at discharge: patient is back to baseline Time Spent with Patient Time attestation: Total time spent providing and/or coordinating discharge services:
--- NOTE | 2021-07-28 16:49 | PC.NURSE ---
All D/C instructions and follow ups reviewed with patient,all questions answered.
== END 2021-07-28 17:56 | disposition home or self-care (01) ==
LOC: ANHED 16:02 → ANHCPC 07-27 10:27 → ANHIMU 07-31 13:32
PROVIDERS: Internal Medicine Gastroenterology; Nurse Practitioner; Admitting Provider Internal Medicine; Emergency Provider Emergency Medicine; PCP Family Medicine; Visit Provider Family Medicine
PROC: 0DJ08ZZ Inspection of Upper Intestinal Tract, Via Natural or Artificial Opening Endoscopic (ICD-10-PCS; CPT 43235; principal; 2021-07-28 11:30)
DX: R07.9 Chest pain, unspecified (principal); K44.9 Diaphragmatic hernia without obstruction or gangrene; I10 Essential (primary) hypertension; E78.2 Mixed hyperlipidemia; Z86.16 Personal history of COVID-19; F41.9 Anxiety disorder, unspecified
CPT/HCPCS: 36415; 71045; 71275; 76705; 80053; 80061; 82728; 83605; 83615; 83690; 83735; 84443; 84484; 85025; 85610; 85730; 86140; 87081; 93005; 96372; 96374; 96375; 96376; 99285; A9270; C9113; G0378; J1650; J2270; J2704; J7120; Q9967

== ENCOUNTER 2021-08-07 10:04 | Outpatient (CLI) | payer OTHER, SELFPAY ==
--- NOTE | ~2021-08-07 | XR_ITS ---
XR UGIAC w barium swallow DATE: 08/07/2021 11:43 INDICATION: Diaphragmatic hernia TECHNIQUE: Fluoroscopy, rapid sequence spot images and overhead radiographs during swallowing of oral barium contrast material. Additional spot and overhead radiographs of the stomach and duodenum DAP: 19.743 1.8 minutes fluoroscopy time 124 images COMPARISON: 04/15/2020 CT abdomen pelvis FINDINGS: There is normal deglutition and esophageal peristalsis. There is a moderate-sized hiatal hernia. There is moderately prominent spontaneous gastroesophageal r eflux. No stricture, mucosal fold thickening, erosion or ulceration or intraluminal mass lesion of the esoph debbie, stomach or duodenum is detected. The duodenum and unopacified jejunum and ileum appear normal. IMPRESSION: Moderately large sliding hiatal hernia with moderately prominent spontaneous gastric esop hageal reflux Reviewed, dictated and finalized at [facility]. Reviewed, dictated and finalized at [facility]. IMPRESSION: Moderately large sliding hiatal hernia with moderately prominent sp ontaneous gastric esophageal reflux
== END 2021-08-07 10:05 ==
PROVIDERS: PCP Family Medicine; Visit Provider Surgery
DX: K44.9 Diaphragmatic hernia without obstruction or gangrene (principal); K21.9 Gastro-esophageal reflux disease without esophagitis
CPT/HCPCS: 74246

== ENCOUNTER → 2021-08-17 08:09 | Outpatient (CLI) | payer OTHER, SELFPAY ==
[2021-08-17 17:42] LABS: SARS-CoV-2 RNA PCR Negative
== END ==
PROVIDERS: PCP Family Medicine; Visit Provider Family Medicine
DX: Z20.828 Contact with and (suspected) exposure to other viral communicable diseases (principal)
CPT/HCPCS: C9803; U0003; U0005

== ENCOUNTER 2021-10-13 08:58 | Outpatient (CLI) | payer OTHER, SELFPAY | END 2021-10-13 08:59 | disposition home or self-care (01) | LOC: ANHSURGERY 09:03 | PROVIDERS: PCP Family Medicine; Visit Provider Surgery | DX: K44.9 Diaphragmatic hernia without obstruction or gangrene (principal) | CPT/HCPCS: 36415; 86850; 86900; 86901 ==

== ENCOUNTER 2021-10-18 11:14 | Observation (INO) | payer OTHER, SELFPAY ==
[2021-10-12 11:14] VITALS: BMI 24.0
--- NOTE | 2021-10-12 11:41 | PC.NURSE ---
Report to the Outpatient Waiting Room, entrance under the green pavilion located off [facility], at time __6:00AM on date __10/17/21 . OR Time: ___7:30AM . - You and your visitor will be asked a series of questions to screen for COVID 19 for your protection. - A mask is required within the hospital. - Only one visitor is allowed at this time. Patient visitors will be guided where to wait when not with patient. Preoperative COVID Testing Requirements: No COVID Test needed if: (proof is required; if not received patient will have Rapid Test prior to entry) - Patient has received COVID Vaccine at least 14 days prior to procedure date or - Patient has positive COVID test result within last 90 days of surgery date. COVID Test needed if above criteria is not met If not COVID vaccinated a COVID test must be conducted within 72 hours of surgery and patient is asked to isolate self from time of testing until procedure. You will go to the [facility] for your COVID testing. The [facility] is located at the corner of [address] [facility]. You will only be called if COVID results are positive and your surgeon may reschedule your elective surgery date. Patients may have clear liquids (water, carbonated beverages, clear teas, apple juice) until 3 hours prior to surgery with a maximum of 20 ounces. - No food from midnight until time of surgery - Infants may have breast milk until 4 hours before surgery, infant formula 6 hours prior to surgery. - Children will be allowed to drink immediately following surgery. If applicable, please bring a bottle or sippy cup to assist with drinking. Juice, water, soda, and popsicles are readily available. For infants on formula, please bring formula the day of surgery. Pacifiers are allowed. Take the following medications with a SIP of water the morning of surgery: ___AMLODIPINE, ESCITALOPRAM Medications to discontinue per physician ____ALL VITAMINS/SUPPLEMENTS 3 DAYS PRE-OP, LAST DOSE 10/13/21 HIBICLENS SHOWER MORNING OF SURGERY Please no make-up, nail mozambican, hairspray, perfume, deodorant, or body powder the day of surgery. No jewelry (including any body piercings) or valuables the day of surgery, leave them at home. Please take a shower or bath the night before, or the morning of, surgery with an antibacterial soap. Wear comfortable, loose fitting clothing. Children are encouraged to wear pajamas. - Jewelry must be removed prior to entering the operating room. Rings and piercings that are not removed may be cut off. - The hospital will not accept responsibility for valuables. - Please leave all valuables, including medications, at home the day of surgery. If you are going home after surgery, a licensed bottom hoop driver must drive you home. - NO public transportation without another adult. - We recommend that an adult stay with you for 24 hours following discharge. - We also recommend that you do not drive, make important decision, drink alcoholic beverages, or take any drugs that were not prescribed by your health care provider for at least 24 hours after your discharge time. For Pediatric surgeries, we recommend two adults accompany the child home (only one inside the building at this time). Follow any additional instructions given to you from your surgeon. Telephone instructions given to __PATIENT and asked if any additional questions and then verbalized understanding. Patient advised to call surgeon office or pre surgery nurse liaison [phone] if any additional questions.
--- NOTE | 2021-10-16 13:46 | WPDANESEPPF ---
Anes - Initial Pre Proc Eval Procedure: Operation Date: 10/17/21 07:30 Proposed Procedures p Laparoscopic Hiatal Hernia Repair with Triston Fundoplication - Ez Bryan DO Date/Time: 10/16/21 13:46 Surgeon: Ez Bryan DO Pre Op Diagnosis: hiatal hernia, gerd Patient Data Age: 41 Gender: M Height: 1.88 m Weight: 85 kg Allergies Allergy/AdvReac Type Severity Reaction Status Date / Time No Known Allergies Allergy Verified 10/12/21 11:04 Home Medications Medication Instructions Recorded Confirmed Type omeprazole 20 mg capsule,delayed 20 mg PO QAM 09/28/19 10/12/21 History release Men's Multivitamin 1 tablet PO DAILY 04/15/20 10/12/21 History quetiapine 50 mg tablet 50 mg PO QHS #30 tablet 01/26/21 10/12/21 Rx melatonin 10 mg capsule 10 mg PO HS cap 04/05/21 10/12/21 History sildenafil (pulm.hypertension) 20 mg PO ONCE PRN 07/26/21 10/12/21 History acetaminophen 500 mg PO Q6H PRN 10/12/21 10/12/21 History amlodipine 5 mg PO QAM 10/12/21 10/12/21 History caffeine [Stay Awake] 400 mg PO QAM 10/12/21 10/12/21 History calcium carbonate [Antacid 200 mg PO BID PRN 10/12/21 10/12/21 History (calcium carbonate)] chlorpheniramine-acetaminophen 2 tablet PO Q4-6H PRN 10/12/21 10/12/21 History [Coricidin] escitalopram oxalate [Lexapro] 20 mg PO QAM 10/12/21 10/12/21 History loperamide 2 mg PO Q4H PRN 10/12/21 10/12/21 History valacyclovir 2,000 mg PO DAILY PRN 10/12/21 10/12/21 History Patient hx anesthesia problems: none Family hx anesthesia problems: none Results Review: All pre-operative results and documents have been reviewed as part of the pre-operative evaluation. [facility] Past Medical History Medical History Abnormal fasting glucose (08/21/21) fasting glucose 107 on 08/21/2021 Acute bronchitis BMI 24.0-24.9, adult BMI 25.0-25.9,adult COVID-19 (~09/30/20) Encounter for prostate cancer screening PSA normal at 0.44 on 08/21/2021 Essential (primary) hypertension Exposure to COVID-19 virus Fever Fever blister Iron deficiency iron normal at 162 with hemoglobin normal at 15.6 on 08/21/2021 Lightheadedness Male erectile dysfunction, unspecified total testosterone normal at 587 with free testosterone 99.7 on 08/21/2021 Mixed hyperlipidemia total cholesterol 254, HDL excellent at 64, triglycerides 134 with LDL elevated at 163 08/21/2021 Pharyngitis Surgical History Surgical History History of hernia surgery [address] [place] [address] Family History Family History Mother Patient's mother is , Onset Age: 53 Asthma Family history of alcoholism Family history of malignant neoplasm Sibling Patient's sister is in good health Patient's brother is in good health Other Diabetes mellitus Social History Social History Social History: The patient lives with his Ji who is his durable power assistant county attorney for healthcare. The patient is a full code. The patient has no children. 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 The patient is lifelong nonsmoker. Smoking status: Never smoker Alcohol intake: current Drinks per week: 14 Substance use: never Substance use type: does not use Living arrangements: with family Additional living arrangements comments: Additional occupation/education comments: [employer] Gender identity (if verbalized by the patient): Male Sexual Orientation (if Verbalized by the Patient): Straight or Heterosexual Spiritual care concerns: No Anes - Eval Final PreProcedure Day of Procedure 10/16/21 13:46 Patient weight: overweight Heart: regular rate and rhythm Lungs: clear to auscultation Airway: Mallampati scale class II Neurological: alert and oriented Last o
[2021-10-17] VITALS (12 sets, daily range): BP systolic 112–130; BP diastolic 75–93; PULSE 80–108; RESP 8–20; TEMP 36.3–37; O2SAT 90–100
[2021-10-17] MEDS: ACETAMINOPHEN 500 MG TABLET 1000 MG PO (06:32)
[2021-10-17] MEDS: KETOROLAC 15 MG/ML VIAL (*BKC) IV PUSH (06:37)
[2021-10-17] MEDS: LACTATED RINGERS 1,000 ML 30 ML IV CONT ×3 (06:44→23:32)
--- NOTE | 2021-10-17 07:12 | WPDHPUPDATE1 ---
History and Physical Update Update Date/Time: 10/17/21 07:12 History and Physical has been reviewed, including an updated exam of the patient. There are NO changes in the patient's condition. Risks, benefits, and alternatives have been discussed and questions answered. Patient agrees to proceed with procedure.
[2021-10-17] MEDS: ceFAZolin 2 GM/D5W 50 ML 2 GM/50 ML BAG IVPB (07:30)
[2021-10-17] MEDS: BUPIVACAINE HCL 0.5% PF 30 ML VIAL INFILTRATE (08:26)
--- NOTE | 2021-10-17 10:47 | W.PM.PROC2 ---
Procedure Note - Detailed Date of Procedure 10/17/21 Pre-op Diagnosis Paraesophageal hernia, GERD Post-op Diagnosis same Procedure Performed Laparoscopic paraesophageal hernia repair with Triston fundoplication Surgeon Ez Bryan DO Conditioning Machine Operator Timo Forrester MD Anesthesia general and local (0.5% bupivicaine) Indications This is a 41-year-old man who presented with substernal chest pain that started about 3 months ago. He had presented to the emergency department on 07/26/2021 with chest pain and cardiac workup was negative but chest CT showed evidence of a moderately large hiatal hernia. He has previously had a predatory animal exterminator history of GERD and has been on omeprazole for a long time. He was also having some occasional dysphagia. He underwent EGD with Dr. Deshpande on 07/28/2021 and this demonstrated large hiatal hernia. He was then referred for surgical evaluation. After my evaluation I sent patient for esophageal manometry and upper GI contrast study. After reviewing this further workup, the patient did appear to be an adequate candidate for paraesophageal hernia repair. Discussions were made with the patient about treatment options and decision was made to proceed with laparoscopic paraesophageal hernia repair with this fundoplication. Findings Laparoscopic paraesophageal hernia repair was performed. The patient was found have the upper portion of his stomach protruding up through the esophageal hiatus. There was a fairly large hiatal hernia sac associated with this hiatal hernia. Hernia sac and stomach were reduced back into the abdominal cavity and another mediastinal dissection was performed to allow for about 3-4 cm of esophagus to be laying within the abdominal cavity without any traction. The hiatal hernia was then repaired using 0 Ethibond simple interrupted sutures on the posterior crura. A 60 Serbian bougie was then placed for fundoplication and a loose fundoplication was performed for a length of about 2-3 cm on the distal esophagus. The hernia sac was excised and sent for pathology. Description of Procedure Procedure as well as risks, benefits, and alternatives were discussed with the patient. Written consent was obtained and placed in chart prior to procedure. Patient was brought back to surgical suite. He was placed supine on operating table. Time-out was done to confirm patient and procedure. He was then intubated by the anesthesia department. His abdomen was prepped and draped in sterile fashion using chlorhexidine prep. A 5 mm incision was made in the left upper quadrant at the costal margin and a 5 mm Optiview trocar was then advanced through the abdominal layers under direct visualization. Once inside the peritoneal cavity, carbon dioxide insufflation was used to create a pneumoperitoneum. The camera was inserted in the abdominal cavity was inspected. No abnormalities were noted initially. The patient was then placed in reverse Trendelenburg position. An 11 mm incision was made about 2 cm superior to the umbilicus and just to the left of midline and an 11 mm trocar was advanced under direct visualization. A 12 mm incision was made in the right lateral abdomen a 12 mm trocar was inserted under direct visualization. Two more 11 mm trocars were placed in the upper abdomen just below the costal margin. The patient was placed in reverse Trendelenburg position. The laparoscopic liver retractor was then placed through the right lateral port and this was gently advanced up to the left lobe of the liver to retract the liver cephalad. The hiatal hernia was visualized. I began my dissection along the gastrohepatic ligament. The gastrohepatic ligament was carefully taken down through the clear opening using LigaSure bipolar cautery. This was extended up to the level of the right tono. The hernia sac was then carefully retracted and the hernia sac was scored along the inner edge of the right tono. This dissection was then continued in a cl
[2021-10-17] MEDS: ONDANSETRON INJ 4 MG/2 ML VIAL IV PUSH (11:51)
[2021-10-17] MEDS: fentaNYL CITRATE INJ (*CRX) 100 MCG/2 ML VIAL 25 MCG IV PUSH ×3 (11:52→12:14)
[2021-10-17] MEDS: LACTATED RINGERS 1,000 ML 100 ML IV CONT (12:50)
[2021-10-17] MEDS: MORPHINE SULFATE (*CRX) 2 MG/ML INJ IV PUSH ×3 (13:54→20:00)
--- NOTE | 2021-10-17 14:16 | ADMGEN ---
This patient, Mainor Suarez, was admitted to [facility]. Patient/family oriented to hospital policies and general routines including ID bracelet, bed and alarms, visiting hours, pain management, procedures, bathroom and other care routines, personal items, smoking policy, room service/diet, and visiting hours. Information on how to activate the Rapid Response Team has been discussed. Patient/Family are encouraged to report perceived risks to care and to ask questions if they do not understand what they are told or what they should do.
[2021-10-17] MEDS: QUEtiapine FUMARATE 25 MG TABLET 50 MG PO (21:30)
[2021-10-17] MEDS: MELATONIN 5 MG TABLET 10 MG PO (21:30)
[2021-10-18] MEDS: MORPHINE SULFATE (*CRX) 2 MG/ML INJ IV PUSH ×4 (03:43→22:04)
[2021-10-18 06:09] VITALS: BP 115/81; PULSE 79; RESP 16; O2SAT 97
[2021-10-18 06:17] LABS: Anion Gap 6 mmol/L (8-16); Blood Urea Nitrogen 11 mg/dL (9-20); Calcium 8.5 mg/dL (8.4-10.2); Carbon Dioxide 26 mmol/L (22-30); Chloride 99 mmol/L (98-107); Estimated CRCL calculation 139 ml/min; Estimated Glomerular Filt Rate > 60; Glucose 123 mg/dL (65-110); Potassium 3.9 mmol/L (3.4-5.0); Sodium 131 mmol/L (137-145)
[2021-10-18 06:20] LABS: Hematocrit 37.9 % (42.0-52.0); Mean Corpuscular HGB Conc 34.3 g/dl (32-36); Mean Corpuscular Hemoglobin 32.7 pg (26-34); Mean Corpuscular Volume 95.5 fl (80-100); Mean Platelet Volume 10.5 fl (7.4-10.4); Platelet Count Result 190 k/mm3 (150-375); Red Blood Count 3.97 M/mm3 (4.6-6.20); Red Cell Distribution Width 13.4 % (11.5-14.5); White Blood Count 12.9 K/mm3 (4.5-10.0)
--- NOTE | 2021-10-18 07:42 | WPDANESPN ---
Anes - Prog Note Post-Op Date/Time: 10/18/21 07:42 Cardiovascular status: normal Respiratory status: normal Airway patency: baseline Mental status: baseline Post-Op hydration status: normal Vital Signs: Last Vital Signs Temp 36.8 C 10/17/21 18:09 Pulse 79 10/18/21 06:09 Resp 16 10/18/21 06:09 BP 115/81 10/18/21 06:09 Pulse Ox 97 10/18/21 06:09 Pain Score (VAS): 0/10, sleeping quietly I/O: Intake & Output 10/17/21 10/17/21 10/18/21 15:59 23:59 07:59 Intake Total 350 1200 Output Total 900 1700 Balance 350 300 -1700 Laboratory Tests 10/18/21 05:50 10/18/21 05:50 10/18/21 10/18/21 05:50 05:50 WBC 12.9 H RBC 3.97 L Hgb 13.0 L Hct 37.9 L MCV 95.5 MCH 32.7 MCHC 34.3 RDW 13.4 Plt Count 190 MPV 10.5 H Sodium 131 L Potassium 3.9 Chloride 99 Carbon Dioxide 26 Anion Gap 6 L BUN 11 D Creatinine 0.70 Estim Creat Clear Calc 139 Estimated GFR > 60 Glucose 123 H Calcium 8.5 Post-procedural complaints: none Patient Feedback: Patient satisfied with anesthetic care.
[2021-10-18 09:00] VITALS: BP 125/92; PULSE 73; RESP 20; O2SAT 99
[2021-10-18] MEDS: amLODIPine BESYLATE 5 MG TABLET PO (09:23)
[2021-10-18] MEDS: ESCITALOPRAM OXALATE 10 MG TABLET 20 MG PO (09:23)
[2021-10-18] MEDS: PANTOPRAZOLE SODIUM IV 40 MG VIAL IV PUSH (09:25)
[2021-10-18] MEDS: ENOXAPARIN 40 MG/0.4 ML SYRINGE SUB-Q (09:29)
[2021-10-18 10:09] VITALS: BP 122/83; PULSE 72; RESP 14; O2SAT 97
[2021-10-18] MEDS: MORPHINE SULFATE (*CRX) 4 MG/ML INJ IV PUSH ×2 (10:29→19:38)
--- NOTE | 2021-10-18 10:45 | PM.PNGS ---
Progress Note: A&P Assessment and Plan (1) Hernia, hiatal: Code(s): K44.9 - Diaphragmatic hernia without obstruction or gangrene Status: Acute Assessment and Plan: Advance to full liquids Start Lortab elixir Increase activity (2) GERD (gastroesophageal reflux disease): Qualifiers: Esophagitis presence: without esophagitis Qualified Code(s): K21.9 - Gastro-esophageal reflux disease without esophagitis Code(s): K21.9 - Gastro-esophageal reflux disease without esophagitis Status: Acute Assessment and Plan: On Protonix (3) Postoperative urinary retention: Code(s): N99.89 - Other postprocedural complications and disorders of genitourinary system; R33.8 - Other retention of urine Status: Acute Assessment and Plan: Pina placed overnight, will keep in place today Voiding trial tomorrow Subjective Subjective Date/Time Seen: 10/18/21 10:45 Post Op day: 1 Interval history: Urinary retention overnight. Pina placed. Still having moderate to severe pain at times. No nausea or vomiting. No dysphagia. Tolerating clears. Exam GI: Inspection: non-distended and incision (intact with glue) GI Palp: Yes Soft to palpation and Yes Tenderness to palpation present (GI) (incisional) Auscultation: normal bowel sounds Objective Data Vital Signs Vital Signs: Vital Signs - 24 hr 10/17/21 10:51 10/17/21 11:06 10/17/21 11:21 Temperature 36.4 C Pulse Rate 93 90 91 Respiratory Rate 8 L 10 L 10 L Blood Pressure 121/76 121/79 112/76 Pulse Oximetry 93 94 94 10/17/21 11:36 10/17/21 11:52 10/17/21 12:07 Temperature Pulse Rate 97 82 98 Respiratory Rate 10 L 10 L 15 Blood Pressure 121/80 128/83 125/89 Pulse Oximetry 96 93 92 10/17/21 12:19 10/17/21 12:24 10/17/21 13:53 Temperature 36.4 C L 37.0 C Pulse Rate 102 H 82 108 H Respiratory Rate 18 14 14 Blood Pressure 125/81 128/78 127/75 Pulse Oximetry 93 90 94 10/17/21 18:09 10/17/21 21:45 10/18/21 06:09 Temperature 36.8 C Pulse Rate 100 105 H 79 Respiratory Rate 16 20 16 Blood Pressure 122/82 130/93 H 115/81 Pulse Oximetry 100 99 97 10/18/21 09:00 10/18/21 10:09 Temperature Pulse Rate 73 72 Respiratory Rate 20 14 Blood Pressure 125/92 H 122/83 Pulse Oximetry 99 97 Intake/Output Intake/Output: Intake & Output 10/15/21 10/16/21 10/17/21 10/18/21 23:59 23:59 23:59 23:59 Intake Total 1550 Output Total 900 1700 Balance 650 -1700 Meds/Results Medications: Active Medications Generic Name Dose Route Start Last Admin Trade Name Freq PRN Reason Stop Dose Admin Hydrocodone Bitart/Acetaminophen 7.5 mg 10/18/21 10:42 Acetaminophen/Hydrocodone Elixir (*Crx) 7.5 Mg/15 Ml Udc PO Q4H PRN Pain Rated 4-6 Amlodipine Besylate 5 mg 10/18/21 09:00 10/18/21 09:23 Amlodipine Besylate 5 Mg Tablet PO 5 mg QAM DERRICK Administration Enoxaparin Sodium 40 mg 10/18/21 09:00 10/18/21 09:29 Enoxaparin 40 Mg/0.4 Ml Syringe SUB-Q 40 mg DAILY DERRICK Administration Escitalopram Oxalate 20 mg 10/18/21 09:00 10/18/21 09:23 Escitalopram Oxalate 10 Mg Tablet PO 20 mg QAM DERRICK Administration Acetaminophen 1,000 mg in 100 mls @ 400 mls/hr 10/17/21 12:24 10/18/21 05:57 Ofirmev 1,000 Mg Ivpb IVPB 10/18/21 11:23 400 mls/hr Q6HR DERRICK Administration Melatonin 10 mg 10/17/21 21:00 10/17/21 21:30 Melatonin 5 Mg Tablet PO 10 mg HS DERRICK Administration Morphine Sulfate 2 mg 10/17/21 12:24 10/18/21 08:25 Morphine Sulfate (*Crx) 2 Mg/Ml Inj IV PUSH 2 mg Q2H PRN Administration Pain Rated 4-6 Morphine Sulfate 4 mg 10/17/21 12:24 10/18/21 10:29 Morphine Sulfate (*Crx) 4 Mg/Ml Inj IV PUSH 4 mg Q2H PRN Administration Pain Rated 7-10 Ondansetron HCl 4 mg 10/17/21 11:01 10/17/21 11:51 Ondansetron Inj 4 Mg/2 Ml Vial IV PUSH 4 mg ONCE PRN Administration Nausea Pantoprazole Sodium 40 mg 10/18/21 09:0
--- NOTE | 2021-10-18 10:58 | PC.NURSE ---
Spoke with L[facility] in dietary for dietitian consult. They will come talk with patient 10/19/21.
[2021-10-18 14:09] VITALS: BP 126/89; PULSE 84; RESP 114; TEMP 36.7; O2SAT 95
[2021-10-18] MEDS: Acetaminophen/HYDROcodone ELIXIR (*CRX) 7.5 MG/15 ML UDC PO ×2 (14:33→22:00)
--- NOTE | 2021-10-18 15:08 | PC.NURSE ---
Patient stated after eating he was having pain, rated it at a 6-7. Gave patient Elixir 7.5mg. Patient stated this wasn't helping and his pain was now rated at an 8. Gave Morphine 2mg. Abdomen tender, bowel sounds present. Will call Dr. Bryan, and I follow up with patient.
[2021-10-18 15:25] VITALS: BP 102/69; PULSE 66; RESP 14; TEMP 35.5; O2SAT 98
[2021-10-18] MEDS: QUEtiapine FUMARATE 25 MG TABLET 50 MG PO (21:01)
[2021-10-18] MEDS: MELATONIN 5 MG TABLET 10 MG PO (21:01)
[2021-10-18 22:16] VITALS: BP 121/80; PULSE 88; RESP 20; O2SAT 95
[2021-10-19] MEDS: MORPHINE SULFATE (*CRX) 2 MG/ML INJ IV PUSH ×2 (05:45→09:36)
[2021-10-19 05:47] VITALS: BP 104/75; PULSE 74; RESP 20; O2SAT 94
[2021-10-19 05:56] LABS: Hematocrit 38.6 % (42.0-52.0); Mean Corpuscular HGB Conc 33.7 g/dl (32-36); Mean Corpuscular Hemoglobin 32.3 pg (26-34); Mean Platelet Volume 10.8 fl (7.4-10.4); Platelet Count Result 183 k/mm3 (150-375); Red Blood Count 4.02 M/mm3 (4.6-6.20); Red Cell Distribution Width 13.3 % (11.5-14.5); White Blood Count 8.4 K/mm3 (4.5-10.0)
[2021-10-19 06:05] LABS: Anion Gap 3 mmol/L (8-16); Blood Urea Nitrogen 12 mg/dL (9-20); Calcium 8.4 mg/dL (8.4-10.2); Carbon Dioxide 30 mmol/L (22-30); Chloride 102 mmol/L (98-107); Estimated CRCL calculation 123 ml/min; Estimated Glomerular Filt Rate > 60; Glucose 97 mg/dL (65-110); Potassium 3.9 mmol/L (3.4-5.0); Sodium 135 mmol/L (137-145)
[2021-10-19] MEDS: polyethylene glycoL 3350 17 GM POWD.PACK PO (08:24)
[2021-10-19] MEDS: amLODIPine BESYLATE 5 MG TABLET PO (08:40)
[2021-10-19] MEDS: ENOXAPARIN 40 MG/0.4 ML SYRINGE SUB-Q (08:40)
[2021-10-19] MEDS: PANTOPRAZOLE SODIUM IV 40 MG VIAL IV PUSH (08:41)
[2021-10-19] MEDS: ESCITALOPRAM OXALATE 10 MG TABLET 20 MG PO (08:41)
[2021-10-19 09:00] VITALS: BP 114/72; PULSE 76; RESP 20; O2SAT 86
[2021-10-19] MEDS: Acetaminophen/HYDROcodone ELIXIR (*CRX) 7.5 MG/15 ML UDC PO ×2 (13:12→17:29)
--- NOTE | 2021-10-19 13:14 | PM.PNGS ---
Progress Note: A&P Assessment and Plan (1) Hernia, hiatal: Code(s): K44.9 - Diaphragmatic hernia without obstruction or gangrene Status: Acute Assessment and Plan: Increase activity Continue working on pain control with Lortab elixir Will keep on full liquids for 2 weeks postop Will likely keep in hospital 1 more day, but anticipate being able to be discharged tomorrow if pain better controlled and ambulating more (2) GERD (gastroesophageal reflux disease): Qualifiers: Esophagitis presence: without esophagitis Qualified Code(s): K21.9 - Gastro-esophageal reflux disease without esophagitis Code(s): K21.9 - Gastro-esophageal reflux disease without esophagitis Status: Acute Assessment and Plan: On Protonix (3) Postoperative urinary retention: Code(s): N99.89 - Other postprocedural complications and disorders of genitourinary system; R33.8 - Other retention of urine Status: Acute Assessment and Plan: Voiding trial today, patient hasn't voided yet since Pina remove this AM. Continue to monitor. Subjective Subjective Date/Time Seen: 10/19/21 13:14 Post Op day: 2 (s/p Lap paraesophageal hernia repair with Triston fundoplication 10/17/21) Interval history: Pina pulled this AM but still hasn't voided. Pain control improving. Hasn't ambulated much yet but finally did walk the hallway a little bit this AM. Tolerating full liquids. Passing flatus. Exam GI: Inspection: incision (intact with glue) GI Palp: Yes Soft to palpation, Yes Tenderness to palpation present (GI) (incisional) and No Guarding due to palpation present (GI) Auscultation: normal bowel sounds Objective Data Vital Signs Vital Signs: Vital Signs - 24 hr 10/18/21 14:09 10/18/21 15:25 10/18/21 22:16 Temperature 36.7 C 35.5 C L Pulse Rate 84 66 88 Respiratory Rate 114 H 14 20 Blood Pressure 126/89 102/69 121/80 Pulse Oximetry 95 98 95 10/19/21 05:47 10/19/21 09:00 Temperature Pulse Rate 74 76 Respiratory Rate 20 20 Blood Pressure 104/75 114/72 Pulse Oximetry 94 86 L Intake/Output Intake/Output: Intake & Output 12/20/21 10/17/21 10/18/21 10/19/21 23:59 23:59 23:59 23:59 Intake Total 1550 Output Total 476 2087 9998 Balance 381 -6264 -7555 Meds/Results Medications: Active Medications Generic Name Dose Route Start Last Admin Trade Name Freq PRN Reason Stop Dose Admin Hydrocodone Bitart/Acetaminophen 7.5 mg 10/18/21 10:42 10/19/21 13:12 Acetaminophen/Hydrocodone Elixir (*Crx) 7.5 Mg/15 Ml Udc PO 7.5 mg Q4H PRN Administration Pain Rated 4-6 Amlodipine Besylate 5 mg 10/18/21 09:00 10/19/21 08:40 Amlodipine Besylate 5 Mg Tablet PO 5 mg QAM DERRICK Administration Enoxaparin Sodium 40 mg 10/18/21 09:00 10/19/21 08:40 Enoxaparin 40 Mg/0.4 Ml Syringe SUB-Q 40 mg DAILY DERRICK Administration Escitalopram Oxalate 20 mg 10/18/21 09:00 10/19/21 08:41 Escitalopram Oxalate 10 Mg Tablet PO 20 mg QAM DERRICK Administration Melatonin 10 mg 10/17/21 21:00 10/18/21 21:01 Melatonin 5 Mg Tablet PO 10 mg HS DERRICK Administration Morphine Sulfate 2 mg 10/17/21 12:24 10/19/21 09:36 Morphine Sulfate (*Crx) 2 Mg/Ml Inj IV PUSH 2 mg Q2H PRN Administration Pain Rated 4-6 Morphine Sulfate 4 mg 10/17/21 12:24 10/18/21 19:38 Morphine Sulfate (*Crx) 4 Mg/Ml Inj IV PUSH 4 mg Q2H PRN Administration Pain Rated 7-10 Ondansetron HCl 4 mg 10/17/21 11:01 10/17/21 11:51 Ondansetron Inj 4 Mg/2 Ml Vial IV PUSH 4 mg ONCE PRN Administration Nausea Pantoprazole Sodium 40 mg 10/18/21 09:00 10/19/21 08:41 Pantoprazole Sodium Iv 40 Mg Vial IV PUSH 40 mg QAM DERRICK Administration Polyethylene Glycol 17 gm 10/19/21 09:00 10/19/21 08:24 Polyethylene Glycol 3350 17 Gm Powd.Pack PO 17 gm QAM DERRICK Administration Promethazine HCl 12.5 mg 10/17/21 12:24 Promethazine Hcl 25 Mg/Ml Ampul IV
[2021-10-19] MEDS: TAMSULOSIN HCL 0.4 MG CAPSULE PO (15:41)
[2021-10-19] MEDS: MORPHINE SULFATE (*CRX) 4 MG/ML INJ IV PUSH (18:42)
[2021-10-19 20:00] VITALS: PULSE 91; RESP 16; O2SAT 90
[2021-10-19 21:10] VITALS: BP 109/71; PULSE 91; RESP 16; TEMP 36.9; O2SAT 90
[2021-10-19] MEDS: MELATONIN 5 MG TABLET 10 MG PO (21:44)
[2021-10-19] MEDS: QUEtiapine FUMARATE 25 MG TABLET 50 MG PO (21:44)
[2021-10-20 01:32] VITALS: BP 115/69; PULSE 80; RESP 16; TEMP 36.3; O2SAT 91
[2021-10-20 05:12] VITALS: BP 123/83; PULSE 76; RESP 16; TEMP 36.6; O2SAT 95
[2021-10-20] MEDS: Acetaminophen/HYDROcodone ELIXIR (*CRX) 7.5 MG/15 ML UDC PO (08:26)
[2021-10-20] MEDS: polyethylene glycoL 3350 17 GM POWD.PACK PO (09:29)
[2021-10-20] MEDS: ENOXAPARIN 40 MG/0.4 ML SYRINGE SUB-Q (09:32)
[2021-10-20] MEDS: TAMSULOSIN HCL 0.4 MG CAPSULE PO (09:32)
[2021-10-20] MEDS: amLODIPine BESYLATE 5 MG TABLET PO (10:26)
[2021-10-20] MEDS: PANTOPRAZOLE SODIUM IV 40 MG VIAL IV PUSH (10:26)
[2021-10-20] MEDS: ESCITALOPRAM OXALATE 10 MG TABLET 20 MG PO (10:26)
--- NOTE | 2021-10-20 12:22 | PM.DS ---
DS: Admitting Diagnosis Discharge Date 10/20/2021 Admitting Diagnosis paraesophageal hernia, GERD DS: Discharge Diagnosis Discharge Diagnosis (1) Paraesophageal hernia: Code(s): K44.9 - Diaphragmatic hernia without obstruction or gangrene Status: Acute (2) Postoperative urinary retention: Code(s): N99.89 - Other postprocedural complications and disorders of genitourinary system; R33.8 - Other retention of urine Status: Acute DS: Summary Hospital Course Reason for hospitalization: postop recovery after laparoscopic paraesophageal hernia repair with Triston fundoplication Hospital Course: this is a 41-year-old man who presented with substernal chest pain and difficulty swallowing. He was found to have a large hiatal hernia that was symptomatic daily. He presented on 10/17/2021 for surgical repair. He underwent laparoscopic paraesophageal hernia repair with Triston fundoplication. He was placed in observation postoperatively and was started on a clear liquid diet. He was tolerating the clear liquid diet but experienced urinary retention and had to have a Pina catheter placed. He was also having difficulty with pain control initially and was still requiring IV pain meds. He was advanced to a full liquid diet on postop day 1 and activity was increased as tolerated. He was very slow to get out of bed and did not seem very motivated to do much activity. He was encouraged to walk frequently to help out with the postoperative recovery. On postop day 2 the Pina catheter was removed. By the afternoon he still had not urinated and bladder scan showed 700 mL in the bladder. Pina catheter had to be replaced. He was started on Flomax to help with potential prostate issues. On postoperative day 3 his pain was much better controlled. He was still not ambulating much but stated that he was feeling much more comfortable. His Pina catheter was filled with 300 mL of saline and then the catheter was pulled for another voiding trial. Once he was able to urinate, he was discharged home. Status at Discharge Functional status at discharge: independent ambulation Overall status at discharge: patient is progressing back to baseline Time Spent with Patient Time attestation: Total time spent providing and/or coordinating discharge services: Time spent: Less than 30 minutes Exam GI: Inspection: non-distended and incision ( Intact with glue) GI Palp: Yes Tenderness to palpation present (GI) ( incisional) and No Guarding due to palpation present (GI) Auscultation: normal bowel sounds DS: Data Data Completed and Pending Completed studies during hospitalization: Pending at discharge 10/17/21 10:28 Surgical [PTH] Routine Discharge Plan Discharge Attending physician on discharge: Ez Bryan Discharging Clinician: Ez Bryna Patient Disposition: Home, Self-Care Activity: may shower Diet: other - see discharge instructions Wound Care Instructions: other - see discharge instructions Discharge Instructions: remain on full liquid diet for 2 weeks, no drinking from straws and no carbonated beverages may drink smoothies or supplement shakes to get added calories ambulate around the house or outside at least 4 to 5 times a day no lifting greater than 10 lb may shower, no bathing or soaking for the next [address], okay to take stairs call office for any severe nausea, difficulty swallowing, increasing abdominal pain, or problems with incisions Patient Instructions: Antibiotic Form Stand Alone Forms: General Discharge Information Follow-up/Referrals: Ez Bryan DO [Physician] - 11/02/21 1:45 pm Discharge Medications: New Lortab Elixir 10-300 mg/15 mL solution 10 - 15 ml PO Q4H PRN (Reason: pain) Qty: 300 RF: 0 tamsulosin [Flomax] 0.4 mg capsule 0.4 mg PO DAILY Qty: 14 RF: 0 Continued melatonin 10 mg capsule 10 mg PO HS RF: 0
[2021-10-20 13:44] VITALS: BP 119/85; PULSE 84; RESP 20; TEMP 36.4; O2SAT 97
== END 2021-10-20 14:30 | disposition home or self-care (01) ==
LOC: ANHSURGERY 11:20 → ANHSUROVER 11:20 → ANH3MED 10-19 16:59
PROVIDERS: Admitting Provider Surgery; PCP Family Medicine; Visit Provider Surgery
PROC: 0DV44ZZ Restriction of Esophagogastric Junction, Percutaneous Endoscopic Approach (ICD-10-PCS; CPT 43281; principal; 2021-10-17 07:30)
DX: K44.9 Diaphragmatic hernia without obstruction or gangrene (principal); K21.9 Gastro-esophageal reflux disease without esophagitis; I10 Essential (primary) hypertension; R33.8 Other retention of urine; N99.89 Other postprocedural complications and disorders of genitourinary system
CPT/HCPCS: 43281; 36415; 80048; 85027; 88302; A9270; C9113; G0378; G0379; J0131; J0690; J1100; J1170; J1650; J1885; J2250; J2270; J2405; J2704; J2710; J3010; J7030; J7120

== ENCOUNTER → 2021-11-27 09:54 | Outpatient (CLI) | payer OTHER, SELFPAY ==
--- NOTE | ~2021-11-27 | XR_ITS ---
EXAMINATION: XR UGI w barium swallow DATE: 11/27/2021 10:55 INDICATION: Diaphragmatic hernia without obstruction or gangrene, recent hiatal hernia surgery TECHNIQUE: The patient drank thick barium, gas-producing crystals, and thin barium. Fluoroscopy of th e esophagus, stomach, and proximal small bowel were performed. Fluoroscopy exposure time was 3.3 justyna steven. The DAP for this procedure was 20.402 Gycm2. COMPARISON: 08/07/2021 FINDINGS: There is no mass or stricture of the esophagus. Esophageal motility is normal. There is mil d delay in emptying of gas crystals from the distal esophagus. This resolved after small sips of cont rast material. No retained gas crystals were observed. There is no hiatal hernia. Changes of interval hiatal hernia surgery are noted. There was no gastroesophageal reflux with provocative maneuvers. Th e stomach and proximal small bowel show normal folding patterns. IMPRESSION: 1. Changes consistent with interval hiatal hernia surgery. Mild delay in emptying of solid crystals f rom the distal esophagus which resolved with small sips of contrast material and time. Reviewed, dictated and finalized at location B. [employer] IMPRESSION: 1. Changes consistent with interval hiatal hernia surgery. Mild delay in emptyi ng of solid crystals from the distal esophagus which resolved with small sips o f contrast material and time.
== END ==
PROVIDERS: Visit Provider Surgery
DX: K44.9 Diaphragmatic hernia without obstruction or gangrene (principal); Z98.890 Other specified postprocedural states
CPT/HCPCS: 74240

== ENCOUNTER 2022-02-19 02:07 | Day surgery (SDC) | payer OTHER, SELFPAY ==
[2022-02-12 15:45] VITALS: BMI 25.0
--- NOTE | 2022-02-19 07:10 | PM.HPGS ---
History of Present Illness History of Present Illness Consent: Risks, benefits, and alternatives have been discussed and questions answered. Patient agrees to proceed with procedure. Chief complaint: dysphagia Narrative: Mainor Suarez is a 41 year old male who is undergoing EGD because of dysphagia for solid food. He had repair of a large hiatal hernia a few months ago. Since then, unfortunately he has been unable swallowed most solid foods. He has consequently lost about 25 lb. Review of Systems Review of Systems: All systems reviewed & are unremarkable except as noted in HPI and below PMFSH Past Medical History Medical History Abnormal fasting glucose (08/21/21) fasting glucose 107 on 08/21/2021 Acute bronchitis BMI 24.0-24.9, adult BMI 25.0-25.9,adult COVID-19 (~09/30/20) Encounter for prostate cancer screening PSA normal at 0.44 on 08/21/2021 Essential (primary) hypertension Exposure to COVID-19 virus Fever Fever blister Iron deficiency iron normal at 162 with hemoglobin normal at 15.6 on 08/21/2021 Lightheadedness Male erectile dysfunction, unspecified total testosterone normal at 587 with free testosterone 99.7 on 08/21/2021 Mixed hyperlipidemia total cholesterol 254, HDL excellent at 64, triglycerides 134 with LDL elevated at 163 08/21/2021 Pharyngitis Surgical History Surgical History History of hernia surgery [address] [place] [address] Family History Family History Mother Patient's mother is , Onset Age: 53 Asthma Family history of alcoholism Family history of malignant neoplasm Sibling Patient's sister is in good health Patient's brother is in good health Other Diabetes mellitus Social History Social History Social History: The patient lives with his Ji who is his durable power state's attorney for healthcare. The patient is a full code. The patient has no children. 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 Smoking status: Never smoker Alcohol intake: current Drinks per week: 14 Alcohol use details: 3 - 4 day Substance use: never Substance use type: does not use Living arrangements: with family Additional living arrangements comments: Additional occupation/education comments: [employer] Gender identity (if verbalized by the patient): Male Sexual Orientation (if Verbalized by the Patient): Straight or Heterosexual Spiritual care concerns: No Meds Home Medications and Allergies Home Medications Medication Instructions Recorded Confirmed Type omeprazole 20 mg capsule,delayed 20 mg PO QAM 09/28/19 02/06/22 History release Men's Multivitamin 1 tablet PO DAILY 04/15/20 02/06/22 History melatonin 10 mg capsule 10 mg PO HS cap 04/05/21 02/06/22 History sildenafil (pulm.hypertension) 20 mg PO ONCE PRN 07/26/21 02/06/22 History acetaminophen 500 mg PO Q6H PRN 10/12/21 02/06/22 History caffeine [Stay Awake] 400 mg PO QAM 10/12/21 02/06/22 History calcium carbonate [Antacid 200 mg PO BID PRN 10/12/21 02/06/22 History (calcium carbonate)] escitalopram oxalate [Lexapro] 20 mg PO QAM 10/12/21 02/06/22 History loperamide 2 mg PO Q4H PRN 10/12/21 02/06/22 History valacyclovir 2,000 mg PO DAILY PRN 10/12/21 02/06/22 History amlodipine 5 mg tablet 5 mg PO QAM #90 tablet 12/25/21 02/06/22 Rx quetiapine 50 mg tablet 50 mg PO QHS #30 tablet 01/16/22 02/06/22 Rx Allergies Allergy/AdvReac Type Severity Reaction Status Date / Time No Known Allergies Allergy Verified 02/19/22 08:55 Exam Const: General: alert Orientation/consciousness: patient oriented x3 Resp: Auscultation: clear to auscultation bilaterally Cardio: Rhythm: regular rhythm GI: GI Palp:
[2022-02-19 08:56] VITALS: BP 122/87; PULSE 94; RESP 18; TEMP 36; O2SAT 98
[2022-02-19 08:57] VITALS: BMI 25.1
[2022-02-19] MEDS: LACTATED RINGERS 1,000 ML 150 ML IV CONT (09:06)
--- NOTE | 2022-02-19 09:16 | WPDANESEPPF ---
Anes - Initial Pre Proc Eval Procedure: Operation Date: 02/19/22 10:30 Proposed Procedures p Esophagogastroduodenoscopy - Karl Deshpande MD Date/Time: 02/19/22 09:16 Surgeon: Karl Deshpande MD Pre Op Diagnosis: dysphagia Patient Data Age: 41 Gender: M Height: 1.88 m Weight: 88.8 kg Last Vital Signs Temp 36.0 C L 02/19/22 08:56 Pulse 94 02/19/22 08:56 Resp 18 02/19/22 08:56 BP 122/87 02/19/22 08:56 Pulse Ox 98 02/19/22 08:56 Allergies Allergy/AdvReac Type Severity Reaction Status Date / Time No Known Allergies Allergy Verified 02/19/22 08:55 Home Medications Medication Instructions Recorded Confirmed Type omeprazole 20 mg capsule,delayed 20 mg PO QAM 09/28/19 02/06/22 History release Men's Multivitamin 1 tablet PO DAILY 04/15/20 02/06/22 History melatonin 10 mg capsule 10 mg PO HS cap 04/05/21 02/06/22 History sildenafil (pulm.hypertension) 20 mg PO ONCE PRN 07/26/21 02/06/22 History acetaminophen 500 mg PO Q6H PRN 10/12/21 02/06/22 History caffeine [Stay Awake] 400 mg PO QAM 10/12/21 02/06/22 History calcium carbonate [Antacid 200 mg PO BID PRN 10/12/21 02/06/22 History (calcium carbonate)] escitalopram oxalate [Lexapro] 20 mg PO QAM 10/12/21 02/06/22 History loperamide 2 mg PO Q4H PRN 10/12/21 02/06/22 History valacyclovir 2,000 mg PO DAILY PRN 10/12/21 02/06/22 History amlodipine 5 mg tablet 5 mg PO QAM #90 tablet 12/25/21 02/06/22 Rx quetiapine 50 mg tablet 50 mg PO QHS #30 tablet 01/16/22 02/06/22 Rx Patient hx anesthesia problems: none Family hx anesthesia problems: none Results Review: All pre-operative results and documents have been reviewed as part of the pre-operative evaluation. [facility] Past Medical History Medical History Abnormal fasting glucose (08/21/21) fasting glucose 107 on 08/21/2021 Acute bronchitis BMI 24.0-24.9, adult BMI 25.0-25.9,adult COVID-19 (~09/30/20) Encounter for prostate cancer screening PSA normal at 0.44 on 08/21/2021 Essential (primary) hypertension Exposure to COVID-19 virus Fever Fever blister Iron deficiency iron normal at 162 with hemoglobin normal at 15.6 on 08/21/2021 Lightheadedness Male erectile dysfunction, unspecified total testosterone normal at 587 with free testosterone 99.7 on 08/21/2021 Mixed hyperlipidemia total cholesterol 254, HDL excellent at 64, triglycerides 134 with LDL elevated at 163 08/21/2021 Pharyngitis Surgical History Surgical History History of hernia surgery [address] [place] [address] Family History Family History Mother Patient's mother is , Onset Age: 53 Asthma Family history of alcoholism Family history of malignant neoplasm Sibling Patient's sister is in good health Patient's brother is in good health Other Diabetes mellitus Social History Social History Social History: The patient lives with his Ji who is his durable power state attorney for healthcare. The patient is a full code. The patient has no children. 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 Smoking status: Never smoker Alcohol intake: current Drinks per week: 14 Alcohol use details: 3 - 4 day Substance use: never Substance use type: does not use Living arrangements: with family Additional living arrangements comments: Additional occupation/education comments: [employer] Gender identity (if verbalized by the patient): Male Sexual Orientation (if Verbalized by the Patient): Straight or Heterosexual Spiritual care concerns: No Anes - Eval Final PreProcedure Day of Procedure 02/19/22 09:16 Patient weight: normal Heart: regular rate and rhythm Lungs: clear to auscultation Airway:
[2022-02-19 10:05] VITALS: BP 122/88; PULSE 85; RESP 15; O2SAT 97
[2022-02-19 10:15] VITALS: BP 119/83; PULSE 81; RESP 14; O2SAT 98
[2022-02-19 10:25] VITALS: BP 119/81; PULSE 78; RESP 18; O2SAT 98
== END 2022-02-19 11:11 | disposition home or self-care (01) ==
PROVIDERS: PCP Family Medicine; Visit Provider Internal Medicine Gastroenterology
PROC: 0DJ08ZZ Inspection of Upper Intestinal Tract, Via Natural or Artificial Opening Endoscopic (ICD-10-PCS; CPT 43235; principal; 2022-02-19 10:30)
DX: R13.19 Other dysphagia (principal); K22.2 Esophageal obstruction; K22.10 Ulcer of esophagus without bleeding; K31.89 Other diseases of stomach and duodenum; E63.8 Other specified nutritional deficiencies; D50.9 Iron deficiency anemia, unspecified; Z86.16 Personal history of COVID-19; E78.2 Mixed hyperlipidemia
CPT/HCPCS: 43239; 43249; 88305; C1726; J2704; J7120

== ENCOUNTER 2022-04-14 14:21 | Emergency (ER) | payer OTHER, SELFPAY ==
--- NOTE | ~2022-04-14 | CT_ITS ---
EXAMINATION: CT abdomen pelvis wo con DATE: 04/14/2022 15:19 INDICATION: Pain at umbilicus, history of hernia TECHNIQUE: Computed tomography (CT) of the abdomen and pelvis was performed without intravenous contr ast. Automated exposure control and iterative reconstruction technique were employed. The dose-length product was 602.08 mGy-cm. COMPARISON: 04/15/2020. FINDINGS: Lower thorax: Moderate hiatal hernia. Liver: Normal. Biliary/Gallbladder: Gallbladder is normal. No bile duct dilation. Pancreas: No mass or duct dilation. Spleen: Normal. Adrenals:No mass. Kidneys: Nonobstructive bilateral renal calculi. No mass or hydronephrosis. GI tract: No small or large bowel dilation. Appendix not visualized. Mesentery/Peritoneum: No ascites, mass, or free air. Retroperitoneum: No mass. Pelvis: Pelvic organs are within normal limits. Soft Tissues: Small subcentimeter upper abdominal fat-containing midline and left paramedian hernias with minimal inflammation. Prior umbilical hernia repair. Bilateral fat-containing inguinal hernias. Bones: No acute osseous finding. IMPRESSION: Subcentimeter fat-containing upper abdominal midline and paramedian hernias with minimal inflammation . Reviewed, dictated and finalized at [facility]. IMPRESSION: Subcentimeter fat-containing upper abdominal midline and paramedian hernias wit h minimal inflammation.
[2022-04-14 14:21] VITALS: BP 141/62; PULSE 101; RESP 16; TEMP 36.8; O2SAT 100
[2022-04-14] MEDS: HYDROmorphone HCL INJ (*CRX) 1 MG/ML SYR IV PUSH (15:03)
[2022-04-14] MEDS: LACTATED RINGERS 1,000 ML 999 ML IV CONT (15:03)
[2022-04-14 15:14] LABS: Basophils Percent Auto 0.6 % (0.2-1.2); Eosinophils Absolute Auto 0.2 K/mm3 (0-0.3); Eosinophils Percent Auto 2.4 % (0-4.4); Hematocrit 43.5 % (42.0-52.0); Hemoglobin 14.9 g/dL (14.0-18.0); Immature Granulocyte Absolute 0.02 K/mm3 (0.00-0.031); Immature Granulocyte Percent A 0.3 % (0-0.5); Lymphocytes Absolute Auto 1.77 K/mm3 (0.9-3.2); Lymphocytes Percent Auto 25.1 % (18.3-44.2); Mean Corpuscular HGB Conc 34.3 g/dl (32-36); Mean Corpuscular Hemoglobin 32.4 pg (26-34); Mean Corpuscular Volume 94.6 fl (80-100); Mean Platelet Volume 10.1 fl (7.4-10.4); Monocytes Absolute Auto 0.6 K/mm3 (0.1-0.6); Monocytes Percent Auto 8.2 % (2.6-8.5); Neutrophils Absolute Auto 4.5 K/mm3 (1.3-6.7); Neutrophils Percent Auto 63.4 % (45.5-73.1); Platelet Count Result 254 k/mm3 (150-375); Red Cell Distribution Width 13.5 % (11.5-14.5)
[2022-04-14 15:16] LABS: Appearance Urine Clear (Clear); Bilirubin Urine Negative (Negative); Blood Urine Negative (Negative); Color Urine Yellow (Yellow); Glucose Urine UA Negative (Negative); Ketones Urine Negative (Negative); Leukocyte Esterase Ur Negative LEU/UL (Negative); Nitrate Urine Negative (Negative); Protein Urine Negative (Negative); Urobilinogen Urine 0.2 mg/dL (<2.0)
[2022-04-14 15:23] LABS: Alanine Aminotransferase 36 U/L (6-50); Albumin Level 4.7 g/dL (3.5-5.1); Alkaline Phosphatase 114 U/L (38-126); Anion Gap 6 mmol/L (8-16); Aspartate Amino Transferase 32 U/L (17-59); Bilirubin,Total 0.4 mg/dL (0.2-1.3); Blood Urea Nitrogen 12 mg/dL (9-20); Calcium 8.7 mg/dL (8.4-10.2); Carbon Dioxide 25 mmol/L (22-30); Chloride 108 mmol/L (98-107); Estimated CRCL calculation 110 ml/min; Estimated Glomerular Filt Rate > 60; Glucose 104 mg/dL (65-110); Lipase 65 U/L (23-300); Sodium 139 mmol/L (137-145)
[2022-04-14 15:26] LABS: Mucus Urine Rare /lpf; RBC Urine 0-2 /hpf (0-2); WBC Urine 0-3 /hpf
[2022-04-14 15:27] LABS: Add Urine Microscopic? NO
--- NOTE | 2022-04-14 15:45 | ED.ABDPAIN ---
HPI - Abdominal Pain General Chief Complaint: Abdominal Pain Stated Complaint: abd pain Time Seen by Provider: 04/14/22 14:29 History of Present Illness HPI narrative: 41-year-old male presenting to the emergency department for evaluation of mid abdominal pain. Patient states he has had some intermittent abdominal pain over the last few days but that when he was lifting boxes he had worsening umbilical pain. Patient denies any associated nausea vomiting or diarrhea. Reports he had a hiatal hernia repair in September. Patient also has history of previous inguinal hernia repair when he was 17 years old. Patient also has a prior history of umbilical hernia repair. Related Data Home Medications Medication Instructions Recorded Confirmed omeprazole 20 mg capsule,delayed 20 mg PO QAM 09/28/19 02/06/22 release uycmumss-ypouewgl-wxwvi acid 400 1 tablet PO DAILY 04/15/20 02/06/22 mcg-vit K 20 mcg-lycop 300 mcg tablet (Men's Multivitamin) melatonin 10 mg capsule 10 mg PO HS 04/05/21 02/06/22 sildenafil (pulm.hypertension) 20 20 mg PO ONCE PRN erectile 07/26/21 02/06/22 mg tablet dysfunction acetaminophen 500 mg tablet 500 mg PO Q6H PRN Pain 10/12/21 02/06/22 caffeine 200 mg tablet (Stay Awake) 400 mg PO QAM 10/12/21 02/06/22 calcium carbonate 200 mg calcium 200 mg PO BID PRN Indigestion 10/12/21 02/06/22 (500 mg) chewable tablet (Antacid (calcium carbonate)) escitalopram oxalate 20 mg tablet 20 mg PO QAM 10/12/21 02/06/22 (Lexapro) loperamide 2 mg tablet 2 mg PO Q4H PRN Diarrhea 10/12/21 02/06/22 valacyclovir 1 gram tablet 2,000 mg PO DAILY PRN Outbreak 10/12/21 02/06/22 Allergies Allergy/AdvReac Type Severity Reaction Status Date / Time No Known Allergies Allergy Verified 04/14/22 14:21 Review of Systems Review of Systems: CONSTITUTIONAL: Denies fever, chills, or sweats. EYES: Denies visual changes, redness, or discharge. ENT: Denies rhinorrhea, congestion, sore throat, or otalgia. CARDIOVASCULAR: Denies chest pain, palpitations, or edema. RESPIRATORY: Denies cough or dyspnea. GASTROINTESTINAL: See HPI GENITOURINARY: Denies dysuria or hematuria. SKIN: Denies rash or itching. MUSCULOSKELETAL: Denies back pain, joint pain, or myalgia. NEUROLOGIC: Denies headache, numbness, or weakness. [facility] Past Medical History Medical History (Updated 04/14/22 @ 16:38 by Clinton Benavides MD) Abnormal fasting glucose (08/21/21) fasting glucose 107 on 08/21/2021 Acute bronchitis Acute non-recurrent maxillary sinusitis BMI 24.0-24.9, adult BMI 25.0-25.9,adult COVID-19 (~09/30/20) Encounter for prostate cancer screening PSA normal at 0.44 on 08/21/2021 Essential (primary) hypertension Exposure to COVID-19 virus Fever Fever blister Iron deficiency iron normal at 162 with hemoglobin normal at 15.6 on 08/21/2021 Lightheadedness Male erectile dysfunction, unspecified total testosterone normal at 587 with free testosterone 99.7 on 08/21/2021 Mixed hyperlipidemia total cholesterol 254, HDL excellent at 64, triglycerides 134 with LDL elevated at 163 08/21/2021 Pharyngitis Surgical History Surgical History History of hernia surgery [address] [place] [address] Family History Family History Mother Patient's mother is , Onset Age: 53 Asthma Family history of alcoholism Family history of malignant neoplasm Sibling Patient's sister is in good health Patient's brother is in good health Other Diabetes mellitus Social History Social History Social History: The patient lives with his Ji who is his durable power attorney at law for healthcare. The patient is a full code. The patient has no children. 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 Smoking status: Never smoker Alcohol intake: current Drink
[2022-04-14 15:53] VITALS: BP 143/95; PULSE 98; RESP 16; TEMP 36.4; O2SAT 98
[2022-04-14 16:44] VITALS: BP 144/95; PULSE 101; RESP 16; O2SAT 100
== END 2022-04-14 16:45 | disposition home or self-care (01) ==
PROVIDERS: Emergency Provider Emergency Medicine; PCP Family Medicine
DX: R10.33 Periumbilical pain (principal); E78.2 Mixed hyperlipidemia; I10 Essential (primary) hypertension; Z86.16 Personal history of COVID-19
CPT/HCPCS: 36415; 74176; 80053; 81003; 83690; 85025; 96361; 96374; 99284; J1170; J7120

== ENCOUNTER 2022-04-15 08:36 | Emergency (ER) | payer OTHER, SELFPAY ==
--- NOTE | ~2022-04-15 | CT_ITS ---
EXAMINATION: CT abdomen pelvis w con DATE: 04/15/2022 11:27 INDICATION: Mid abdominal pain TECHNIQUE: Computed tomography (CT) of the abdomen and pelvis was performed without intravenous contr ast. Automated exposure control and iterative reconstruction technique were employed. Exam dose: 443 .63 mGy-cm total exam DLP. COMPARISON: None. FINDINGS: There is minimal bilateral lower lobe atelectasis. Normal heart size. No pericardial or ple ural effusion. Moderate moderate sliding hiatal hernia. Very small medial segment left hepatic lobe probable cyst. The liver is otherwise unremarkable. Alondra l splenic size. No pancreatic mass lesion or calcification or ductal dilatation. Normal morphology of the adrenal glands. Approximately 3 mm nonobstructing lower pole right renal calculus and approximately 2 x 4 mm nonobstr ucting upper pole left renal calculus. No ureteral calculus or hydroureteronephrosis either kidney is noted. Normal caliber of the abdominal aorta. No intraperitoneal or retroperitoneal or pelvic mass lesion or adenopathy or ascites. There is mild prostate enlargement. The urinary bladder is unremarkable. There are small bowel air-fluid levels scattered through the abdomen, without abnormal dilatation No evidence of appendicitis. No bowel obstruction or intraperitoneal free air is detected. Small fat-containing left parasagittal in midline supraumbilical ventral abdominal wall hernias No suspicious osteolytic or osteoblastic lesions. IMPRESSION: Scattered small bowel air-fluid levels which may be due to enteritis or mild adynamic il eus Hiatal hernia Nonobstructing calculus of each kidney Small supraumbilical ventral abdominal wall fat-containing hernias Reviewed, dictated and finalized at [facility]. Reviewed, dictated and finalized at location [facility]. IMPRESSION: Scattered small bowel air-fluid levels which may be due to enterit is or mild adynamic ileus Hiatal hernia Nonobstructing calculus of each kidney Small supraumbilical ventral abdominal wall fat-containing hernias
--- NOTE | 2022-04-15 09:35 | ED.ABDPAIN ---
HPI - Abdominal Pain General Chief Complaint: Abdominal Pain <Adeline Parkinson PA-C - Last Filed: 04/15/22 13:43> Stated Complaint: abdominal pain <Adeline Parkinson PA-C - Last Filed: 04/15/22 13:43> Time Seen by Provider: 04/15/22 09:12 <Adeline Parkinson PA-C - Last Filed: 04/15/22 13:43> Source: patient <DINO Hernandez Last Filed: 04/15/22 13:43> Mode of arrival: ambulatory <DINO Hernandez Last Filed: 04/15/22 13:43> Limitations: no limitations <Adeline Parkinson PA-C - Last Filed: 04/15/22 13:43> History of Present Illness HPI narrative: This is a 41 year old male that presents to the ER for abdominal wall pain. Reports he was seen here yesterday for same. Has a small midline hernia. Reports he has been taking over the counter pain medications with little relief. He had a bowel movement this morning which worsened his pain and prompted him to be seen again. Denies fever, nausea, vomiting, or constipation. <Adeline Parkinson PA-C - Last Filed: 04/15/22 13:43> Related Data Home Medications: Home Medications Medication Instructions Recorded Confirmed omeprazole 20 mg capsule,delayed 20 mg PO QAM 09/28/19 02/06/22 release vvwawkwa-guyhkocw-guqks acid 400 1 tablet PO DAILY 04/15/20 02/06/22 mcg-vit K 20 mcg-lycop 300 mcg tablet (Men's Multivitamin) melatonin 10 mg capsule 10 mg PO HS 04/05/21 02/06/22 sildenafil (pulm.hypertension) 20 20 mg PO ONCE PRN erectile 07/26/21 02/06/22 mg tablet dysfunction acetaminophen 500 mg tablet 500 mg PO Q6H PRN Pain 10/12/21 02/06/22 caffeine 200 mg tablet (Stay Awake) 400 mg PO QAM 10/12/21 02/06/22 calcium carbonate 200 mg calcium 200 mg PO BID PRN Indigestion 10/12/21 02/06/22 (500 mg) chewable tablet (Antacid (calcium carbonate)) escitalopram oxalate 20 mg tablet 20 mg PO QAM 10/12/21 02/06/22 (Lexapro) loperamide 2 mg tablet 2 mg PO Q4H PRN Diarrhea 10/12/21 02/06/22 valacyclovir 1 gram tablet 2,000 mg PO DAILY PRN Outbreak 10/12/21 02/06/22 <Adeline Parkinson PA-C - Last Filed: 04/15/22 13:43> Allergies/Adverse Reactions: Allergies Allergy/AdvReac Type Severity Reaction Status Date / Time No Known Allergies Allergy Verified 04/14/22 14:21 <Adeline Parkinson PA-C - Last Filed: 04/15/22 13:43> Review of Systems Review of Systems: CONSTITUTIONAL: Denies fever GASTROINTESTINAL: Reports abdominal pain. Denies nausea, vomiting <Adeline Parkinson PA-C - Last Filed: 04/15/22 13:43> All systems reviewed & are unremarkable except as noted in HPI and below <Adeline Parkinson PA-C - Last Filed: 04/15/22 13:43> [facility] Past Medical History Medical History: Medical History (Updated 04/15/22 @ 13:24 by Adeline Parkinson PA-C) Abnormal fasting glucose (08/21/21) fasting glucose 107 on 08/21/2021 Acute bronchitis Acute non-recurrent maxillary sinusitis BMI 24.0-24.9, adult BMI 25.0-25.9,adult COVID-19 (~09/30/20) Encounter for prostate cancer screening PSA normal at 0.44 on 08/21/2021 Essential (primary) hypertension Exposure to COVID-19 virus Fever Fever blister Iron deficiency iron normal at 162 with hemoglobin normal at 15.6 on 08/21/2021 Lightheadedness Male erectile dysfunction, unspecified total testosterone normal at 587 with free testosterone 99.7 on 08/21/2021 Mixed hyperlipidemia total cholesterol 254, HDL excellent at 64, triglycerides 134 with LDL elevated at 163 08/21/2021 Pharyngitis <Adeline Parkinson PA-C - Last Filed: 04/15/22 13:43> Surgical History Surgical History: Surgical History History of hernia surgery [address] [place] [address] <Adeline Parkinson PA-C - Last Filed: 04/15/22 13:43> Family History Family History: Family History Mother Patient's mother is , Onset Age: 53 Asthma Family history of alcoholism Family history of ma
[2022-04-15 10:01] LABS: Basophils Percent Auto 0.7 % (0.2-1.2); Eosinophils Absolute Auto 0.1 K/mm3 (0-0.3); Eosinophils Percent Auto 2.4 % (0-4.4); Hematocrit 44.6 % (42.0-52.0); Hemoglobin 15.1 g/dL (14.0-18.0); Immature Granulocyte Absolute 0.02 K/mm3 (0.00-0.031); Immature Granulocyte Percent A 0.4 % (0-0.5); Lymphocytes Absolute Auto 1.15 K/mm3 (0.9-3.2); Lymphocytes Percent Auto 20.9 % (18.3-44.2); Mean Corpuscular HGB Conc 33.9 g/dl (32-36); Mean Corpuscular Hemoglobin 32.1 pg (26-34); Mean Corpuscular Volume 94.7 fl (80-100); Mean Platelet Volume 10.1 fl (7.4-10.4); Monocytes Absolute Auto 0.5 K/mm3 (0.1-0.6); Monocytes Percent Auto 8.7 % (2.6-8.5); Neutrophils Absolute Auto 3.7 K/mm3 (1.3-6.7); Neutrophils Percent Auto 66.9 % (45.5-73.1); Platelet Count Result 252 k/mm3 (150-375); Red Blood Count 4.71 M/mm3 (4.6-6.20); Red Cell Distribution Width 13.3 % (11.5-14.5); White Blood Count 5.5 K/mm3 (4.5-10.0)
[2022-04-15 10:13] LABS: Alanine Aminotransferase 37 U/L (6-50); Albumin Level 4.3 g/dL (3.5-5.1); Alkaline Phosphatase 107 U/L (38-126); Anion Gap 5 mmol/L (8-16); Aspartate Amino Transferase 39 U/L (17-59); Bilirubin,Total 0.4 mg/dL (0.2-1.3); Blood Urea Nitrogen 7 mg/dL (9-20); Calcium 9.1 mg/dL (8.4-10.2); Carbon Dioxide 26 mmol/L (22-30); Chloride 106 mmol/L (98-107); Estimated Glomerular Filt Rate > 60; Glucose 108 mg/dL (65-110); Lactic Acid Reflex 1.4 mmol/L (0.7-2.0); Lipase 30 U/L (23-300); Sodium 137 mmol/L (137-145)
[2022-04-15 10:15] VITALS: BP 133/98; PULSE 87; TEMP 37.1; O2SAT 96
[2022-04-15] MEDS: KETOROLAC 15 MG/ML VIAL (*BKC) IV PUSH (10:19)
[2022-04-15] MEDS: diazePAM INJ (*CRX) 10 MG/2 ML SYRINGE 5 MG IV PUSH (10:20)
[2022-04-15] MEDS: MORPHINE SULFATE (*CRX) 4 MG/ML INJ IV PUSH (11:11)
[2022-04-15] MEDS: ONDANSETRON INJ 4 MG/2 ML VIAL IV PUSH (11:11)
[2022-04-15 12:04] VITALS: BP 139/95; PULSE 88; RESP 18; O2SAT 96
[2022-04-15] MEDS: DICYCLOMINE HCL INJ 20 MG/2 ML VIAL IM (13:14)
== END 2022-04-15 13:52 | disposition home or self-care (01) ==
PROVIDERS: Physician Assistant; Emergency Provider Emergency Medicine; PCP Family Medicine
DX: K52.9 Noninfective gastroenteritis and colitis, unspecified (principal); R10.33 Periumbilical pain; I10 Essential (primary) hypertension; E78.2 Mixed hyperlipidemia; Z86.16 Personal history of COVID-19; K44.9 Diaphragmatic hernia without obstruction or gangrene; N20.0 Calculus of kidney; K43.9 Ventral hernia without obstruction or gangrene
CPT/HCPCS: 36415; 74177; 80053; 83605; 83690; 85025; 96365; 96372; 96375; 99284; J0131; J0500; J1885; J2270; J2405; J3360; Q9967

== ENCOUNTER 2022-04-21 20:05 | Emergency (ER) | payer OTHER, SELFPAY ==
[2022-04-21] VITALS (22 sets, daily range): BP systolic 127–142; BP diastolic 90–100; PULSE 104; RESP 17; TEMP 36.4; O2SAT 94–100
--- NOTE | 2022-04-21 20:29 | ED.NAVMDI ---
HPI - Nausea/Vomiting/Diarrhea General Chief complaint: Nausea/Vomiting/Diarrhea Stated complaint: n/V/D Time Seen by Provider: 04/21/22 20:19 History of Present Illness HPI Narrative: 41-year-old male presents the emergency room for evaluation of nausea and multiple episodes of diarrhea. Patient states he was evaluated here in the emergency room twice last week for abdominal wall pain. Review of prior documentation, patient had 2 abdominal CTs last week demonstrating a subcentimeter umbilical fat-containing hernia, and possible enteritis. Denies hematochezia and denies fever. Related Data Home Medications Medication Instructions Recorded Confirmed omeprazole 20 mg capsule,delayed 20 mg PO QAM 09/28/19 02/06/22 release jgtomitg-flvjinbs-kemta acid 400 1 tablet PO DAILY 04/15/20 02/06/22 mcg-vit K 20 mcg-lycop 300 mcg tablet (Men's Multivitamin) melatonin 10 mg capsule 10 mg PO HS 04/05/21 02/06/22 sildenafil (pulm.hypertension) 20 20 mg PO ONCE PRN erectile 07/26/21 02/06/22 mg tablet dysfunction caffeine 200 mg tablet (Stay Awake) 400 mg PO QAM 10/12/21 02/06/22 calcium carbonate 200 mg calcium 200 mg PO BID PRN Indigestion 10/12/21 02/06/22 (500 mg) chewable tablet (Antacid (calcium carbonate)) escitalopram oxalate 20 mg tablet 20 mg PO QAM 10/12/21 02/06/22 (Lexapro) loperamide 2 mg tablet 2 mg PO Q4H PRN Diarrhea 10/12/21 02/06/22 valacyclovir 1 gram tablet 2,000 mg PO DAILY PRN Outbreak 10/12/21 02/06/22 Allergies Allergy/AdvReac Type Severity Reaction Status Date / Time dicyclomine AdvReac Mild Nausea Verified 04/21/22 20:09 Review of Systems Review of Systems: CONSTITUTIONAL: Denies fever, chills, or sweats. EYES: Denies visual changes, redness, or discharge. ENT: Denies rhinorrhea, congestion, sore throat, or otalgia. CARDIOVASCULAR: Denies chest pain, palpitations, or edema. RESPIRATORY: Denies cough or dyspnea. GASTROINTESTINAL: Reports abdominal pain, nausea, diarrhea GENITOURINARY: Denies dysuria or hematuria. SKIN: Denies rash or itching. MUSCULOSKELETAL: Denies back pain, joint pain, or myalgia. NEUROLOGIC: Denies headache, numbness, dizziness, or weakness. PSYCHIATRIC: Denies anxiety or depression. [facility] Past Medical History Medical History Abdominal pain Abnormal fasting glucose (08/21/21) fasting glucose 107 on 08/21/2021 Acute bronchitis Acute non-recurrent maxillary sinusitis BMI 24.0-24.9, adult BMI 25.0-25.9,adult COVID-19 (~09/30/20) Encounter for prostate cancer screening PSA normal at 0.44 on 08/21/2021 Essential (primary) hypertension Exposure to COVID-19 virus Fever Fever blister Iron deficiency iron normal at 162 with hemoglobin normal at 15.6 on 08/21/2021 Lightheadedness Male erectile dysfunction, unspecified total testosterone normal at 587 with free testosterone 99.7 on 08/21/2021 Mixed hyperlipidemia total cholesterol 254, HDL excellent at 64, triglycerides 134 with LDL elevated at 163 08/21/2021 Pharyngitis Surgical History Surgical History History of hernia surgery lap paraesophageal her rep w/ Triston fundoplication 09/2021 ventral hernia repair with mesh 11/2018 Family History Family History Mother Patient's mother is , Onset Age: 53 Asthma Family history of alcoholism Family history of malignant neoplasm Sibling Patient's sister is in good health Patient's brother is in good health Other Diabetes mellitus Social History Social History Social History: The patient lives with his Ji who is his durable power litigation attorney for healthcare. The patient is a full code. The patient has no children. 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 Smoking status: Never smoker
[2022-04-21] MEDS: ONDANSETRON INJ 4 MG/2 ML VIAL IV PUSH (20:41)
[2022-04-21] MEDS: SODIUM CHLORIDE 0.9% IV 1,000 ML 999 ML IV CONT (20:41)
[2022-04-21 20:49] LABS: Basophils Absolute Auto 0.1 K/mm3 (0.0-0.1); Basophils Percent Auto 0.7 % (0.2-1.2); Eosinophils Absolute Auto 0.2 K/mm3 (0-0.3); Eosinophils Percent Auto 2.3 % (0-4.4); Hematocrit 45.7 % (42.0-52.0); Hemoglobin 15.7 g/dL (14.0-18.0); Immature Granulocyte Absolute 0.03 K/mm3 (0.00-0.031); Immature Granulocyte Percent A 0.3 % (0-0.5); Lymphocytes Absolute Auto 2.31 K/mm3 (0.9-3.2); Lymphocytes Percent Auto 26.4 % (18.3-44.2); Mean Corpuscular HGB Conc 34.4 g/dl (32-36); Mean Corpuscular Hemoglobin 32.1 pg (26-34); Mean Corpuscular Volume 93.5 fl (80-100); Mean Platelet Volume 10.2 fl (7.4-10.4); Monocytes Absolute Auto 0.7 K/mm3 (0.1-0.6); Monocytes Percent Auto 8.5 % (2.6-8.5); Neutrophils Absolute Auto 5.4 K/mm3 (1.3-6.7); Neutrophils Percent Auto 61.8 % (45.5-73.1); Platelet Count Result 279 k/mm3 (150-375); Red Blood Count 4.89 M/mm3 (4.6-6.20); Red Cell Distribution Width 13.6 % (11.5-14.5); White Blood Count 8.7 K/mm3 (4.5-10.0)
[2022-04-21 20:59] LABS: Alanine Aminotransferase 36 U/L (6-50); Albumin Level 5.1 g/dL (3.5-5.1); Alkaline Phosphatase 123 U/L (38-126); Anion Gap 7 mmol/L (8-16); Aspartate Amino Transferase 36 U/L (17-59); Blood Urea Nitrogen 13 mg/dL (9-20); Calcium 9.2 mg/dL (8.4-10.2); Carbon Dioxide 25 mmol/L (22-30); Chloride 105 mmol/L (98-107); Estimated CRCL calculation 110 ml/min; Estimated Glomerular Filt Rate > 60; Glucose 112 mg/dL (65-110); Lipase 42 U/L (23-300); Potassium 3.5 mmol/L (3.4-5.0); Sodium 137 mmol/L (137-145)
[2022-04-21] MEDS: diphenhydrAMINE HCl INJ 50 MG/ML VIAL 25 MG IV PUSH (21:48)
[2022-04-21] MEDS: METOCLOPRAMIDE HCL INJ 10 MG/2 ML VIAL IV PUSH (21:48)
[2022-04-21 21:58] LABS: Appearance Urine Clear (Clear); Bilirubin Urine Negative (Negative); Blood Urine Negative (Negative); Color Urine Yellow (Yellow); Glucose Urine UA Negative (Negative); Ketones Urine Trace mg/dL (Negative); Leukocyte Esterase Ur Negative LEU/UL (Negative); Nitrate Urine Negative (Negative); Protein Urine Negative (Negative); Urobilinogen Urine 0.2 mg/dL (<2.0)
[2022-04-21 22:04] LABS: Mucus Urine Rare /lpf; RBC Urine 0-2 /hpf (0-2); WBC Urine 0-3 /hpf
[2022-04-21 22:15] LABS: Add Urine Microscopic? YES
--- NOTE | 2022-04-21 23:04 | PC.NURSE ---
Patient report given to MARTY Jones. All questions answered and care of patient transferred.
== END 2022-04-22 00:13 | disposition home or self-care (01) ==
PROVIDERS: Emergency Medicine; Emergency Provider Nurse Practitioner Family; PCP Family Medicine
DX: K52.9 Noninfective gastroenteritis and colitis, unspecified (principal); I10 Essential (primary) hypertension; E78.2 Mixed hyperlipidemia
CPT/HCPCS: 36415; 80053; 81001; 83690; 85025; 96361; 96374; 96375; 99284; J1200; J2405; J2765; J7030

== ENCOUNTER 2022-05-23 08:28 | Outpatient (CLI) | payer OTHER, SELFPAY | END 2022-05-23 08:29 | disposition home or self-care (01) | LOC: ANHSURGERY 08:32 | PROVIDERS: PCP Family Medicine; Visit Provider Surgery | DX: Z01.812 Encounter for preprocedural laboratory examination (principal); K43.2 Incisional hernia without obstruction or gangrene | CPT/HCPCS: 36415; 86850; 86900; 86901 ==

== ENCOUNTER 2022-05-29 00:11 | Day surgery (SDC) | payer OTHER, SELFPAY ==
[2022-05-22 15:32] VITALS: BMI 25.7
--- NOTE | 2022-05-22 15:36 | SUR.PREOP ---
Report to the Outpatient Waiting Room, entrance under the green pavilion located off [facility], at time 0630 on date _05/29/22 . OR Time: _0830 - You and your visitor will be asked a series of questions to screen for COVID 19 for your protection. - Only one visitor is allowed at this time. - The patient visitor is requested to leave or wait in car when not with patient. - A mask is required within the hospital. Patients may have clear liquids (water, carbonated beverages, clear teas, apple juice) until 3 hours prior to surgery with a maximum of 20 ounces. - No food from midnight until time of surgery - Infants may have breast milk until 4 hours before surgery, infant formula 6 hours prior to surgery. - Children will be allowed to drink immediately following surgery. If applicable, please bring a bottle or sippy cup to assist with drinking. Juice, water, soda, and popsicles are readily available. For infants on formula, please bring formula the day of surgery. Pacifiers are allowed. Take the following medications with a SIP of water the morning of surgery: __AMLODIPINE.LEXAPRO Medications to discontinue per physician ___MULTIVITAMINS Date to take last dose__05/25/22 Please no make-up, nail kazakh, hairspray, perfume, deodorant, or body powder the day of surgery. No jewelry (including any body piercings) or valuables the day of surgery, leave them at home. Please take a shower or bath the night before, or the morning of, surgery with an antibacterial soap. Wear comfortable, loose fitting clothing. Children are encouraged to wear pajamas. [facility] AM OF SURGERY - Jewelry must be removed prior to entering the operating room. Rings and piercings that are not removed may be cut off. - The hospital will not accept responsibility for valuables. - Please leave all valuables, including medications, at home the day of surgery. If you are going home after surgery, a licensed transportation driver must drive you home. - NO public transportation without another adult. - We recommend that an adult stay with you for 24 hours following discharge. - We also recommend that you do not drive, make important decision, drink alcoholic beverages, or take any drugs that were not prescribed by your health care provider for at least 24 hours after your discharge time. For Pediatric surgeries, we recommend two adults accompany the child home (only one inside the building at this time). Follow any additional instructions given to you from your surgeon. If you or anyone in your household have experienced Covid symptoms in the past week, please notify your surgeon or the nurse liaison at the phone number below for possible testing. Telephone instructions given to DEMAR COMBS and asked if any additional questions and then verbalized understanding. Patient advised to call surgeon office or pre surgery nurse liaison [phone] if any additional questions.
--- NOTE | 2022-05-28 11:37 | WPDANESEPPF ---
Anes - Initial Pre Proc Eval Procedure: Operation Date: 05/29/22 08:30 Proposed Procedures p Laparoscopic Incisional Hernia Repair with Mesh, Davinci Assisted - Ez Bryan DO Date/Time: 05/28/22 11:37 Surgeon: Ez Bryan DO Pre Op Diagnosis: Incisional Hernia Patient Data Age: 41 Gender: M Height: 1.88 m Weight: 90.9 kg Allergies Allergy/AdvReac Type Severity Reaction Status Date / Time dicyclomine AdvReac Mild Nausea Verified 05/22/22 15:10 Home Medications Medication Instructions Recorded Confirmed Type omeprazole 20 mg capsule,delayed 20 mg PO QAM 09/28/19 05/22/22 History release ihjjquqv-pwdzhjiz-uozwg acid 400 1 tablet PO DAILY 04/15/20 05/22/22 History mcg-vit K 20 mcg-lycop 300 mcg tablet (Men's Multivitamin) melatonin 10 mg capsule 10 mg PO HS 04/05/21 05/22/22 History sildenafil (pulm.hypertension) 20 20 mg PO ONCE PRN erectile 07/26/21 05/22/22 History mg tablet dysfunction caffeine 200 mg tablet (Stay Awake) 400 mg PO QAM 10/12/21 05/22/22 History calcium carbonate 200 mg calcium 200 mg PO PRN PRN Indigestion 10/12/21 05/22/22 History (500 mg) chewable tablet (Antacid (calcium carbonate)) escitalopram oxalate 20 mg tablet 20 mg PO QAM 10/12/21 05/22/22 History (Lexapro) loperamide 2 mg tablet 2 mg PO Q4H PRN Diarrhea 10/12/21 05/22/22 History valacyclovir 1 gram tablet 2,000 mg PO DAILY PRN Outbreak 10/12/21 05/22/22 History amlodipine 5 mg tablet 5 mg PO QAM #90 tabs 12/25/21 05/22/22 Rx ondansetron 4 mg disintegrating 4 mg PO Q8H #14 tabs 04/21/22 05/22/22 Rx tablet chlordiazepoxide-clidinium 5 1 cap PO PRN PRN abdominal pain 05/22/22 05/22/22 History mg-2.5 mg capsule (Librax (with clidinium)) Patient hx anesthesia problems: none Family hx anesthesia problems: none Results Review: All pre-operative results and documents have been reviewed as part of the pre-operative evaluation. [facility] Past Medical History Medical History (Updated 05/29/22 @ 07:55 by Mitul Paredes MD) Abdominal pain Abnormal fasting glucose (08/21/21) fasting glucose 107 on 08/21/2021 Acute bronchitis Acute non-recurrent maxillary sinusitis Anxiety Asthma BMI 24.0-24.9, adult BMI 25.0-25.9,adult COVID-19 (~09/30/20) Depression Encounter for prostate cancer screening PSA normal at 0.44 on 08/21/2021 Essential (primary) hypertension ETOH abuse Exposure to COVID-19 virus Fever Fever blister Iron deficiency iron normal at 162 with hemoglobin normal at 15.6 on 08/21/2021 Lightheadedness Male erectile dysfunction, unspecified total testosterone normal at 587 with free testosterone 99.7 on 08/21/2021 Mixed hyperlipidemia total cholesterol 254, HDL excellent at 64, triglycerides 134 with LDL elevated at 163 08/21/2021 Paraesophageal hernia Pharyngitis Surgical History Surgical History History of hernia surgery lap paraesophageal her rep w/ Triston fundoplication 09/2021 ventral hernia repair with mesh 11/2018 Family History Family History Mother Patient's mother is , Onset Age: 53 Asthma Family history of alcoholism Family history of malignant neoplasm Sibling Patient's sister is in good health Patient's brother is in good health Other Diabetes mellitus Social History Social History Social History: The patient lives with his Ji who is his durable power prosecuting attorney for healthcare. The patient is a full code. The patient has no children. 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 The patient is lifelong nonsmoker. Smoking status: Never smoker Alcohol intake: current Drinks per week: 28 Alcohol use details: 3 - 4 day Substance use: never Substance use type: does not use Living arrangements: with family Additional living arrang
[2022-05-29] VITALS (12 sets, daily range): BP systolic 120–146; BP diastolic 87–105; PULSE 84–101; RESP 12–20; TEMP 36.4–37; O2SAT 91–99
[2022-05-29] MEDS: ACETAMINOPHEN 500 MG TABLET 1000 MG PO (07:10)
[2022-05-29] MEDS: KETOROLAC 15 MG/ML VIAL (*BKC) IV PUSH (07:11)
[2022-05-29] MEDS: LACTATED RINGERS 1,000 ML 30 ML IV CONT ×2 (07:18→10:04)
--- NOTE | 2022-05-29 07:20 | WPDHPUPDATE1 ---
History and Physical Update Update Date/Time: 05/29/22 07:20 History and Physical has been reviewed, including an updated exam of the patient. There are NO changes in the patient's condition. Risks, benefits, and alternatives have been discussed and questions answered. Patient agrees to proceed with procedure.
[2022-05-29] MEDS: ceFAZolin 2 GM/D5W 50 ML 2 GM/50 ML BAG IVPB (08:19)
--- NOTE | 2022-05-29 09:47 | W.PM.PROC2 ---
Procedure Note - Detailed Date of Procedure 05/29/22 Pre-op Diagnosis Incisional Hernia Post-op Diagnosis Same Procedure Performed Laparoscopic Incisional Hernia Repair with Mesh, da Beti assisted Surgeon Ez Bryan DO Anesthesia General and Local (Exparel) Indications This is a 41-year-old man who presented with abdominal pain located just superior to his umbilicus. This is at a location of a previous laparoscopic surgery. He had a CT which showed evidence of an incisional hernia just superior to the umbilicus containing fat. Discussions were made with the patient about treatment options and decision was made to proceed with robotic assisted laparoscopic incisional hernia repair with mesh. Findings Laparoscopic incisional hernia repair was performed. Upon entering the abdominal cavity laparoscopically, I was able to visualize where the hernia was located. The patient had a prior umbilical hernia repair with mesh and this mesh appeared to be intact. He had 2 small incisional hernias located just superior to where the mesh ended right where the falciform ligament entered into the abdominal wall. This appeared to be at the port site from his previous laparoscopic hiatal hernia repair. The remainder of the abdominal wall appeared free of any other hernias. Each of these hernias only measured about 1 cm wide. They were by about 1 cm and were located about 2 cm superior to where the mesh and did from the previous hernia repair. Each hernia was closed using an 0 Ethibond wtnkbv-fh-oillr suture. A Ventralight ST 15 cm x 10 cm mesh was then placed within the abdominal cavity and secured circumferentially to the abdominal wall using 2 0 V lock running absorbable sutures. No specimens were obtained for pathology. Description of Procedure Procedure as well as risks, benefits, and alternatives were discussed with the patient. Written consent was obtained and placed in chart prior to procedure. Patient was brought back to surgical suite. He was placed supine on operating table. Time-out was done to confirm patient and procedure. He was then intubated by the anesthesia department. A bump was placed under his left hip, and the bed was flexed slightly to extend the space between his costal margin and iliac crest. His abdomen was prepped and draped in sterile fashion using chlorhexidine prep. A 5 millimeter incision was made in the left upper quadrant, and a 5 millimeter Optiview trocar was advanced through the abdominal layers under direct visualization. Once inside the abdominal cavity, carbon dioxide insufflation was used to create a pneumoperitoneum. His abdomen was inspected. An 8 millimeter incision was made in the left lower quadrant, and an 8 millimeter robotic trocar was placed under direct visualization. Another 8 millimeter incision was made in the left lateral abdomen, and an 8 millimeter robotic trocar was placed under direct visualization. Exparel was infiltrated along the lateral abdominal ramey to perform a transversus abdominis plane block bilaterally. The 5 millimeter port was removed, the incision was extended to 12 millimeters, and a 12 millimeter air seal port was placed under direct visualization. A Jacob-Saunders cone was also used to place an 0-Vicryl simple interrupted suture at this trocar site. The robotic arms were brought up to the patient's bedside and secured to the ports. The camera and instruments were inserted, and I then moved over to the robotic console and took control of the camera and instruments. After careful thorough inspection of the abdominal cavity, I began my dissection at the hernia. The preperitoneal fat and falciform ligament was cleared from around the hernia using robotic scissors with electrocautery. There were 2 hernias in close proximity each measuring 1 cm. The fascia was closed using 0 Ethibond enfbig-dk-ouicg sutures. A Ventralight ST 15 cm x 10 cm was then placed within the abdomin
[2022-05-29] MEDS: fentaNYL CITRATE INJ (*CRX) 100 MCG/2 ML VIAL 25 MCG IV PUSH ×8 (10:45→11:36)
[2022-05-29] MEDS: oxyCODONE HCL (*CRX) 5 MG TAB IR PO (12:04)
== END 2022-05-29 12:58 | disposition home or self-care (01) ==
PROVIDERS: PCP Family Medicine; Visit Provider Surgery
PROC: (CPT 49654; principal; 2022-05-29 08:30)
DX: K43.2 Incisional hernia without obstruction or gangrene (principal); Z86.16 Personal history of COVID-19; I10 Essential (primary) hypertension; E61.1 Iron deficiency; E78.2 Mixed hyperlipidemia; F41.9 Anxiety disorder, unspecified; J45.909 Unspecified asthma, uncomplicated; F32.A Depression, unspecified
CPT/HCPCS: 49654; S2900; 36415; 86850; 86900; 86901; A9270; C1781; C9290; J0690; J1100; J1885; J2250; J2405; J2704; J2710; J3010; J7030; J7120

== ENCOUNTER 2022-06-24 12:58 | Emergency (ER) | payer OTHER, SELFPAY ==
--- NOTE | ~2022-06-24 | CT_ITS ---
EXAMINATION: CT abdomen pelvis w con DATE: 06/24/2022 15:32 INDICATION: Umbilical pain status post hernia repair TECHNIQUE: Computed tomography (CT) of the abdomen and pelvis was performed without intravenous contr ast. Automated exposure control and iterative reconstruction technique were employed. The dose-length product was 591.49 mGy-cm. COMPARISON: 04/15/2022. FINDINGS: Lower thorax: Bibasilar atelectasis/scar. Moderate hiatal hernia Liver: Normal. Biliary/Gallbladder: No bile duct dilation. Pancreas: No mass or duct dilation. Spleen: Normal. Adrenals:No mass. Kidneys: No suspicious mass or hydronephrosis. Bilateral nonobstructive calculi. GI tract: No small or large bowel dilation. Appendix not confidently visualized. Mesentery/Peritoneum: No ascites, mass, or free air. Retroperitoneum: No mass. Pelvis: Pelvic organs are within normal limits. Soft Tissues: Mild subcutaneous fat induration at the umbilicus, without fluid collection Bones: No acute osseous finding. IMPRESSION: Mild inflammatory change at the umbilicus, likely post surgical change. No fluid collection. Infectio n, is not excluded. Reviewed, dictated and finalized at location K. IMPRESSION: Mild inflammatory change at the umbilicus, likely post surgical change. No flui d collection. Infection, is not excluded.
[2022-06-24 13:00] VITALS: BP 140/96; PULSE 103; RESP 14; TEMP 36.7; O2SAT 98
--- NOTE | 2022-06-24 13:52 | ED.GENADULT ---
HPI - General Adult General Chief complaint: Abdominal Pain Stated complaint: pain above umbilicus Time Seen by Provider: 06/24/22 13:23 History of Present Illness HPI narrative: 41-year-old male with history of multiple abdominal surgeries presenting the emergency department for evaluation of increased abdominal pain. Patient states on 05/29 he had umbilical hernia repair by Dr. dejesus. Patient states since having the surgery he has been sore but has otherwise been doing well. Patient states he has been limiting his lifting as directed. Patient states this morning he bent over to tie his shoes and had onset of increased abdominal pain just above his umbilicus. Patient denies any associated nausea or vomiting. Patient denies any change in bowel habits. Patient reports he has had a hiatal hernia repair, bilateral inguinal hernia repairs and multiple umbilical hernia repairs. Related Data Home Medications Medication Instructions Recorded Confirmed ehnlxfhb-jhwvuful-kjfdu acid 400 1 tablet PO DAILY 04/15/20 06/15/22 mcg-vit K 20 mcg-lycop 300 mcg tablet (Men's Multivitamin) melatonin 10 mg capsule 10 mg PO HS 04/05/21 06/15/22 sildenafil (pulm.hypertension) 20 20 mg PO ONCE PRN erectile 07/26/21 06/15/22 mg tablet dysfunction caffeine 200 mg tablet (Stay Awake) 400 mg PO QAM 10/12/21 06/15/22 calcium carbonate 200 mg calcium 200 mg PO PRN PRN Indigestion 10/12/21 06/15/22 (500 mg) chewable tablet (Antacid (calcium carbonate)) escitalopram oxalate 20 mg tablet 20 mg PO QAM 10/12/21 06/15/22 (Lexapro) loperamide 2 mg tablet 2 mg PO Q4H PRN Diarrhea 10/12/21 06/15/22 chlordiazepoxide-clidinium 5 1 cap PO PRN PRN abdominal pain 05/22/22 06/15/22 mg-2.5 mg capsule (Librax (with clidinium)) omeprazole 20 mg capsule,delayed 40 mg PO QAM 06/05/22 06/15/22 release Allergies Allergy/AdvReac Type Severity Reaction Status Date / Time dicyclomine AdvReac Mild Nausea Verified 06/14/22 13:18 hydrocodone AdvReac Rash Verified 06/24/22 12:59 Review of Systems Review of Systems: CONSTITUTIONAL: Denies fever, chills, or sweats. EYES: Denies visual changes, redness, or discharge. ENT: Denies rhinorrhea, congestion, sore throat, or otalgia. CARDIOVASCULAR: Denies chest pain, palpitations, or edema. RESPIRATORY: Denies cough or dyspnea. GASTROINTESTINAL: See HPI GENITOURINARY: Denies dysuria or hematuria. SKIN: Denies rash or itching. MUSCULOSKELETAL: Denies back pain, joint pain, or myalgia. NEUROLOGIC: Denies headache, numbness, or weakness. [facility] Past Medical History Medical History (Updated 06/24/22 @ 17:28 by Clinton Benavides MD) Abdominal pain Abnormal fasting glucose (08/21/21) fasting glucose 107 on 08/21/2021 Acute bronchitis Acute non-recurrent maxillary sinusitis Anxiety Asthma BMI 24.0-24.9, adult BMI 25.0-25.9,adult COVID-19 (~09/30/20) Depression Elevated fasting glucose Encounter for prostate cancer screening PSA normal at 0.44 on 08/21/2021 Essential (primary) hypertension ETOH abuse Exposure to COVID-19 virus Fever Fever blister Iron deficiency iron normal at 162 with hemoglobin normal at 15.6 on 08/21/2021 Lightheadedness Male erectile dysfunction, unspecified total testosterone normal at 587 with free testosterone 99.7 on 08/21/2021 Mixed hyperlipidemia total cholesterol 254, HDL excellent at 64, triglycerides 134 with LDL elevated at 163 08/21/2021 Paraesophageal hernia Pharyngitis Surgical History Surgical History (Updated 06/14/22 @ 13:25 by KAT [place]) History of hernia surgery lap paraesophageal her rep w/ Triston fundoplication 09/2021 ventral hernia repair with mesh 11/2018 History of incisional hernia repair Lap inc hernia repair w mesh, Da Beti assisted on 05/29. Family History Family History Mother Patient's mother is , Onset Age: 53 Asthma Family history of alcoholism Fami
[2022-06-24 13:57] LABS: Basophils Absolute Auto 0.1 K/mm3 (0.0-0.1); Basophils Percent Auto 0.9 % (0.2-1.2); Eosinophils Absolute Auto 0.3 K/mm3 (0-0.3); Eosinophils Percent Auto 4.5 % (0-4.4); Hematocrit 41.6 % (42.0-52.0); Hemoglobin 14.6 g/dL (14.0-18.0); Immature Granulocyte Absolute 0.02 K/mm3 (0.00-0.031); Immature Granulocyte Percent A 0.3 % (0-0.5); Lymphocytes Absolute Auto 1.56 K/mm3 (0.9-3.2); Lymphocytes Percent Auto 22.6 % (18.3-44.2); Mean Corpuscular HGB Conc 35.1 g/dl (32-36); Mean Corpuscular Hemoglobin 32.7 pg (26-34); Mean Corpuscular Volume 93.3 fl (80-100); Mean Platelet Volume 10.6 fl (7.4-10.4); Monocytes Absolute Auto 0.8 K/mm3 (0.1-0.6); Monocytes Percent Auto 11.6 % (2.6-8.5); Neutrophils Absolute Auto 4.1 K/mm3 (1.3-6.7); Neutrophils Percent Auto 60.1 % (45.5-73.1); Platelet Count Result 225 k/mm3 (150-375); Red Blood Count 4.46 M/mm3 (4.6-6.20); Red Cell Distribution Width 14.2 % (11.5-14.5); White Blood Count 6.9 K/mm3 (4.5-10.0)
[2022-06-24 14:10] LABS: Appearance Urine Clear (Clear); Bilirubin Urine 1+ (Negative); Blood Urine Negative (Negative); Color Urine Yellow (Yellow); Glucose Urine UA Negative (Negative); Ketones Urine Negative (Negative); Leukocyte Esterase Ur Trace LEU/UL (Negative); Nitrate Urine Negative (Negative); Protein Urine Negative (Negative); Specific Grav Ur >= 1.030 (1.001-1.035); Urobilinogen Urine 0.2 mg/dL (<2.0); pH Urine 5.5 (5.0-9.0)
[2022-06-24 14:12] LABS: Lactic Acid Reflex 1.4 mmol/L (0.7-2.0)
[2022-06-24 14:13] LABS: Mucus Urine Few /lpf; RBC Urine 0-2 /hpf (0-2); Squamous Epithelial Cell Urine Occasional /hpf (Few); WBC Urine 0-3 /hpf
[2022-06-24] MEDS: MORPHINE SULFATE (*CRX) 4 MG/ML INJ IV PUSH ×2 (14:25→15:37)
[2022-06-24] MEDS: ONDANSETRON INJ 4 MG/2 ML VIAL IV PUSH (14:25)
[2022-06-24] MEDS: SODIUM CHLORIDE 0.9% IV 1,000 ML 999 ML IV CONT (14:25)
[2022-06-24 14:30] LABS: Add Urine Microscopic? YES
[2022-06-24 14:55] VITALS: TEMP 36.7
[2022-06-24 15:13] LABS: Alanine Aminotransferase 32 U/L (6-50); Albumin Level 3.8 g/dL (3.5-5.1); Alkaline Phosphatase 109 U/L (38-126); Anion Gap 6 mmol/L (8-16); Aspartate Amino Transferase 29 U/L (17-59); Bilirubin,Total 0.4 mg/dL (0.2-1.3); Blood Urea Nitrogen 17 mg/dL (9-20); Calcium 8.3 mg/dL (8.4-10.2); Carbon Dioxide 25 mmol/L (22-30); Chloride 107 mmol/L (98-107); Estimated CRCL calculation 110 ml/min; Estimated Glomerular Filt Rate > 60; Glucose 92 mg/dL (65-110); Lipase 42 U/L (23-300); Potassium 3.8 mmol/L (3.4-5.0); Sodium 138 mmol/L (137-145)
[2022-06-24 15:37] VITALS: BP 130/93; PULSE 92; RESP 14; O2SAT 100
[2022-06-24 16:44] VITALS: BP 128/92; PULSE 87; RESP 16; O2SAT 98
[2022-06-24] MEDS: KETOROLAC 15 MG/ML VIAL (*BKC) IV PUSH (17:38)
[2022-06-24 17:45] VITALS: BP 125/92; PULSE 83; RESP 14; O2SAT 98
== END 2022-06-24 17:45 | disposition home or self-care (01) ==
PROVIDERS: Emergency Provider Emergency Medicine; PCP Family Medicine
DX: R10.9 Unspecified abdominal pain (principal); F41.9 Anxiety disorder, unspecified; J45.909 Unspecified asthma, uncomplicated; F32.A Depression, unspecified; E78.2 Mixed hyperlipidemia
CPT/HCPCS: 36415; 74177; 80053; 81001; 83605; 83690; 85025; 96361; 96374; 96375; 96376; 99284; J1885; J2270; J2405; J7030; Q9967

== ENCOUNTER 2022-08-26 21:36 | Emergency (ER) | payer OTHER, SELFPAY ==
[2022-08-26] VITALS (17 sets, daily range): BP systolic 118–135; BP diastolic 76–92; PULSE 108–133; RESP 12–21; O2SAT 92–96
[2022-08-26] MEDS: SODIUM CHLORIDE 0.9% IV 1,000 ML 999 ML IV CONT (21:40)
--- NOTE | 2022-08-26 22:20 | PC.NURSE ---
Spoke with Art from [place] [facility] - Case # [id number]. 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 Order standard labs and add magnesium level. If electrolytes low, correct to mid-range of normal. No charcoal. Observe for minimum of 6 hours. If symptoms resolved, may end observation. Otherwise, continue until asymptomatic. EDP Rudy updated and aware.
--- NOTE | 2022-08-26 22:33 | ED.OVERDOSE ---
HPI - Overdose General Chief Complaint: Overdose Stated Complaint: overdose intentional History of Present Illness HPI Narrative: 42yoM presents after overdosing on his Seroquel, he states that he was very upset because his told him that she was going to leave him. He denies taking anything else that night other than melatonin. He thinks that he may have taken about 50-60 pills, denies any nausea, vomiting, abdominal pain, chest pain, shortness of breath, only endorsing sleepiness. Did have 1 suicide attempt 5 years ago. Related Data Home Medications Medication Instructions Recorded Confirmed hahlyxwk-fxmqmcte-pycpo acid 400 1 tablet PO DAILY 04/15/20 07/06/22 mcg-vit K 20 mcg-lycop 300 mcg tablet (Men's Multivitamin) melatonin 10 mg capsule 10 mg PO HS 04/05/21 07/06/22 sildenafil (pulm.hypertension) 20 20 mg PO ONCE PRN erectile 07/26/21 07/06/22 mg tablet dysfunction caffeine 200 mg tablet (Stay Awake) 400 mg PO QAM 10/12/21 07/06/22 calcium carbonate 200 mg calcium 200 mg PO PRN PRN Indigestion 10/12/21 07/06/22 (500 mg) chewable tablet (Antacid (calcium carbonate)) escitalopram oxalate 20 mg tablet 20 mg PO QAM 10/12/21 07/06/22 (Lexapro) loperamide 2 mg tablet 2 mg PO Q4H PRN Diarrhea 10/12/21 07/06/22 chlordiazepoxide-clidinium 5 1 cap PO PRN PRN abdominal pain 05/22/22 07/06/22 mg-2.5 mg capsule (Librax (with clidinium)) omeprazole 20 mg capsule,delayed 40 mg PO QAM 06/05/22 07/06/22 release Allergies Allergy/AdvReac Type Severity Reaction Status Date / Time dicyclomine AdvReac Mild Nausea Verified 08/26/22 22:13 hydrocodone AdvReac Rash Verified 08/26/22 22:13 Review of Systems Review of Systems: CONST: Sleepy HEENT: No sore throat C/V: No chest pain RESP: No shortness of breath GI: No nausea or vomiting : No dysuria. M/S: No joint pain. SKIN: No rash. NEURO: [No focal numbness or weakness] PSYCH: Suicide attempt [facility] Past Medical History Medical History Abdominal pain Abnormal fasting glucose (08/21/21) fasting glucose 107 on 08/21/2021 Acute bronchitis Acute non-recurrent maxillary sinusitis Anxiety Asthma BMI 24.0-24.9, adult BMI 25.0-25.9,adult COVID-19 (~09/30/20) Depression Elevated fasting glucose Encounter for prostate cancer screening PSA normal at 0.44 on 08/21/2021 Essential (primary) hypertension ETOH abuse Exposure to COVID-19 virus Fever Fever blister Iron deficiency iron normal at 162 with hemoglobin normal at 15.6 on 08/21/2021 Lightheadedness Male erectile dysfunction, unspecified total testosterone normal at 587 with free testosterone 99.7 on 08/21/2021 Mixed hyperlipidemia total cholesterol 254, HDL excellent at 64, triglycerides 134 with LDL elevated at 163 08/21/2021 Paraesophageal hernia Pharyngitis Surgical History Surgical History History of hernia surgery lap paraesophageal her rep w/ Triston fundoplication 09/2021 ventral hernia repair with mesh 11/2018 History of incisional hernia repair Lap inc hernia repair w mesh, Da Beti assisted on 05/29. Family History Family History Mother Patient's mother is , Onset Age: 53 Asthma Family history of alcoholism Family history of malignant neoplasm Sibling Patient's sister is in good health Patient's brother is in good health Other Diabetes mellitus Social History Social History Social History: The patient lives with his Ji who is his durable power insurance attorney for healthcare. The patient is a full code. The patient has no children. 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 Smoking status: Never smoker Alcohol intake: current Drinks per week: 28 Alcohol use details: 3 - 4 day Substance use: never Substan
[2022-08-26] MEDS: MAGNESIUM SULF 2 GM/WATER 50ML 2 GM/50 ML BAG IVPB (22:36)
[2022-08-26] MEDS: LACTATED RINGERS 1,000 ML 999 ML IV CONT (22:36)
--- NOTE | 2022-08-26 22:44 | PC.NURSE ---
2140 NS fluids from EMS continued per Dr. Grant's VO.
[2022-08-26 22:49] LABS: Basophils Percent Auto 0.9 % (0.2-1.2); Eosinophils Absolute Auto 0.1 K/mm3 (0-0.3); Eosinophils Percent Auto 2.6 % (0-4.4); Hematocrit 38.8 % (42.0-52.0); Hemoglobin 13.7 g/dL (14.0-18.0); Immature Granulocyte Absolute 0.01 K/mm3 (0.00-0.031); Immature Granulocyte Percent A 0.3 % (0-0.5); Lymphocytes Absolute Auto 1.08 K/mm3 (0.9-3.2); Lymphocytes Percent Auto 31.4 % (18.3-44.2); Mean Corpuscular HGB Conc 35.3 g/dl (32-36); Mean Corpuscular Hemoglobin 33.6 pg (26-34); Mean Corpuscular Volume 95.1 fl (80-100); Mean Platelet Volume 10.3 fl (7.4-10.4); Monocytes Absolute Auto 0.4 K/mm3 (0.1-0.6); Monocytes Percent Auto 11.9 % (2.6-8.5); Neutrophils Absolute Auto 1.8 K/mm3 (1.3-6.7); Neutrophils Percent Auto 52.9 % (45.5-73.1); Platelet Count Result 168 k/mm3 (150-375); Red Blood Count 4.08 M/mm3 (4.6-6.20); White Blood Count 3.4 K/mm3 (4.5-10.0)
[2022-08-26 22:59] LABS: Appearance Urine Clear (Clear); Bilirubin Urine Negative (Negative); Blood Urine Negative (Negative); Color Urine Yellow (Yellow); Glucose Urine UA Negative (Negative); Ketones Urine Negative (Negative); Leukocyte Esterase Ur Negative LEU/UL (Negative); Nitrate Urine Negative (Negative); Protein Urine Negative (Negative); Urobilinogen Urine 0.2 mg/dL (<2.0)
[2022-08-26 23:00] LABS: Partial Thromboplastin Time 22.7 SECONDS (22.3-36.8); Prothrombin Time 12.9 Seconds (11.1-14.7)
[2022-08-26 23:01] LABS: Alanine Aminotransferase 49 U/L (6-50); Albumin Level 3.7 g/dL (3.5-5.1); Alkaline Phosphatase 94 U/L (38-126); Anion Gap 9 mmol/L (8-16); Aspartate Amino Transferase 39 U/L (17-59); Bilirubin,Total 0.3 mg/dL (0.2-1.3); Blood Urea Nitrogen 10 mg/dL (9-20); Calcium 8.2 mg/dL (8.4-10.2); Carbon Dioxide 22 mmol/L (22-30); Chloride 110 mmol/L (98-107); Estimated CRCL calculation 109 ml/min; Estimated Glomerular Filt Rate > 60; Glucose 131 mg/dL (65-110); Magnesium 1.9 mg/dL (1.6-2.3); Potassium 3.3 mmol/L (3.4-5.0); Sodium 141 mmol/L (137-145)
[2022-08-26 23:02] LABS: Lactic Acid Reflex 2.1 mmol/L (0.7-2.0)
[2022-08-26 23:04] LABS: Mucus Urine Rare /lpf; RBC Urine 0-2 /hpf (0-2); WBC Urine 0-3 /hpf
[2022-08-26 23:05] LABS: Add Urine Microscopic? NO
[2022-08-26 23:07] LABS: Acetaminophen < 10 ug/mL (10-30); Ethanol 61 mg/dL (<10); Salicylate < 1.0 mg/dL (2-20)
--- NOTE | 2022-08-26 23:09 | PC.NURSE ---
0907 Transferred care to Clemente Sher RN
[2022-08-26 23:17] LABS: Amphetamine Screen Urine Negative (Negative); Barbiturate Screen Urine Negative (Negative); Benzodiazepines Screen Urine Negative (Negative); Cannabinoid Screen Urine Negative (Negative); Cocaine Screen Urine Negative (Negative); Methadone Screen Urine Negative (Negative); Opiate Screen Urine Negative (Negative); Phencyclidine Screen Urine Negative (Negative)
[2022-08-26 23:25] LABS: SARS-CoV-2 RNA PCR Negative
[2022-08-26] MEDS: POTASSIUM CHLORIDE INJ 40 MEQ in SODIUM CHLORIDE 0.9% IV 500 ML 130 MEQ IVPB (23:32)
--- NOTE | 2022-08-26 23:48 | PC.NURSE ---
Per EDP Rudy, sitter required at bedside. electronics technician placed at pt's bedside for SI precautions. Awaiting medical clearance approx 0400 at earliest.
--- NOTE | 2022-08-26 23:51 | PC.NURSE ---
patient sleeping at this time rouses to voice will look at staff when name is called
[2022-08-27] VITALS (32 sets, daily range): BP systolic 115–145; BP diastolic 63–98; PULSE 72–127; RESP 12–20; TEMP 36.4; O2SAT 91–99
--- NOTE | 2022-08-27 01:03 | PC.NURSE ---
diagnostics tech present at bedside.
[2022-08-27 01:46] LABS: Reflex Lactic Acid Yes or No Add Lactic
--- NOTE | 2022-08-27 01:47 | PC.NURSE ---
poison control request ekg after potassium is finished
[2022-08-27] MEDS: LACTATED RINGERS 1,000 ML 999 ML IV CONT (02:10)
[2022-08-27 02:24] LABS: Lactic Acid 1.7 mmol/L (0.7-2.0)
--- NOTE | 2022-08-27 03:27 | ECG_ITS ---
Measurements Intervals [place] Rate: 105 P: 38 OK: 157 QRS: -28 QRSD: 84 T: 9 QT: 343 QTc: 454 Interpretive Statements SINUS TACHYCARDIA BORDERLINE LEFT AXIS DEVIATION [QRS AXIS < -20] ABNORMAL RHYTHM ECG COMPARED TO ECG 07/26/2021 11:34:23 NO CHANGE Electronically Signed On 08-27-2022 12:40:35 CDT by Drake Wiseman M.D.
--- NOTE | 2022-08-27 04:28 | PC.NURSE ---
This RN spoke with Clinton at [place] [facility]. Updated on pt's repeat EKG and QTC of 450, vital signs, and pt condition. Per [facility] Control, Case #[id number] CLOSED. LOY Grant notified.
--- NOTE | 2022-08-27 05:22 | PC.NURSE ---
Mirza here to evaluate patient. patient answers some questions but will fall back asleep. mirza will return in a few hours when he is more awake
--- NOTE | 2022-08-27 07:16 | PC.NURSE ---
Took report from field education coordinator nurse, pt is very lethargic, sleeping and not able to stay awake for more than a few minutes.
--- NOTE | 2022-08-27 09:39 | PC.NURSE ---
Pt still very sleepy, falls asleep in the middle of the conversation.
--- NOTE | 2022-08-27 11:05 | PC.NURSE ---
ADELAIDA from Dr. Bruner to use ammonia inhalant on patient to aid in waking him up.
--- NOTE | 2022-08-27 11:05 | PC.NURSE ---
Patient more alert. Patient informed crisis would be out to talk with him.
--- NOTE | 2022-08-27 13:38 | PC.NURSE ---
Pt still very sleepy, lethargic and not able to answer answers clearly. Crisis here to evaluate pt and the decision was to be dc with safety plan, Dr Bruner disagreed with the decision and said that the pt needs placement.
--- NOTE | 2022-08-27 13:50 | PC.NURSE ---
Dr. Bruner wanting patient to be admitted involuntarily. He was handed petition and cert to fill out.
--- NOTE | 2022-08-27 16:06 | PC.NURSE ---
Involuntary papers completed by infant caregiver. Chart including Covit test results faxed to [facility]
--- NOTE | 2022-08-27 16:32 | PCCCNOTE ---
Addendum entered by Alisson Madison RN 08/27/22 18:24: Phone received from Huma at [facility], she did not receive involuntary form. Re'faxed involuntary petition and certificate to [facility] at [phone]. They were asking about POA, spoke with patient who thinks he may have POA on file here at [facility], but also seemed confused about what healthcare economics consultant was asking. E Chart reviewed unable to find a scanned POA on file. Called to [facility] in [place], they do not take involuntary patients Original Note: Called by ED rn relief charge Arlene about involuntary placement for patient. Spoke with Dr. Bruner, petition completed and MD certificate completed and signed by Dr. Bruner. Called to [facility] they do not have any beds but advised to call back tomorrow. Called to [facility], no beds but willing to place on waitlist, referral fax'd to [facility] Intake. Called to [facility] spoke with Felicita, requests facesheet to be fax'd to [phone] and if willing to review referral they will call back. Called to [facility], intake they do have beds available, fax'd referral to [phone]. Bedside RN received phone call that [facility] willing to review referral, fax'd to [phone]. [phone], they do have beds and require a certain referrral form. Per intake they will fax to referral form to care coordination fax #. Once completed request that it be fax'd back with the additional specifics requested. Verbal update provided to Seng Jacobs RN. Petition/ Certificate and ED Chart placed on clipboard.
--- NOTE | 2022-08-27 17:17 | PC.NURSE ---
[facility], said that the pt is not accepted, if he goes there he will have to be self-pay.
--- NOTE | 2022-08-27 18:45 | PC.NURSE ---
[facility] psychiatrist deflected per RN.
--- NOTE | 2022-08-27 19:21 | PCCCNOTE ---
Fax'd chart, involuntary form, petition and requested specific referral form to [facility] at [phone], Pending decision, phone # is [phone].
--- NOTE | 2022-08-27 20:18 | PC.NURSE ---
assumed care of pt, pt in room with sitter at bedside. pt denies SI HI at this time. Placement for SI per ER doc. waiting for acceptance. pt aware.
--- NOTE | 2022-08-28 05:12 | ECG_ITS ---
Measurements Intervals [place] Rate: 93 P: 44 WV: 161 QRS: -27 QRSD: 90 T: 1 QT: 338 QTc: 421 Interpretive Statements SINUS RHYTHM BORDERLINE LEFT AXIS DEVIATION [QRS AXIS < -20] NONSPECIFIC T-WAVE ABNORMALITY COMPARED TO ECG 08/27/2022 04:00:32 SINUS RHYTHM NOW PRESENT T-WAVE ABNORMALITY NOW PRESENT Electronically Signed On 08-29-2022 12:51:42 CDT by Angel Callahan D.O.
[2022-08-28 05:26] LABS: Basophils Percent Auto 0.4 % (0.2-1.2); Eosinophils Absolute Auto 0.2 K/mm3 (0-0.3); Eosinophils Percent Auto 2.3 % (0-4.4); Hematocrit 41.9 % (42.0-52.0); Hemoglobin 14.3 g/dL (14.0-18.0); Immature Granulocyte Absolute 0.03 K/mm3 (0.00-0.031); Immature Granulocyte Percent A 0.3 % (0-0.5); Lymphocytes Absolute Auto 1.18 K/mm3 (0.9-3.2); Lymphocytes Percent Auto 12.1 % (18.3-44.2); Mean Corpuscular HGB Conc 34.1 g/dl (32-36); Mean Corpuscular Hemoglobin 33.3 pg (26-34); Mean Corpuscular Volume 97.7 fl (80-100); Mean Platelet Volume 10.4 fl (7.4-10.4); Monocytes Absolute Auto 0.5 K/mm3 (0.1-0.6); Monocytes Percent Auto 5.6 % (2.6-8.5); Neutrophils Absolute Auto 7.7 K/mm3 (1.3-6.7); Neutrophils Percent Auto 79.3 % (45.5-73.1); Platelet Count Result 157 k/mm3 (150-375); Red Blood Count 4.29 M/mm3 (4.6-6.20); Red Cell Distribution Width 13.1 % (11.5-14.5); White Blood Count 9.7 K/mm3 (4.5-10.0)
[2022-08-28 05:37] LABS: Anion Gap 9 mmol/L (8-16); Blood Urea Nitrogen 14 mg/dL (9-20); Calcium 8.3 mg/dL (8.4-10.2); Carbon Dioxide 24 mmol/L (22-30); Chloride 105 mmol/L (98-107); Estimated CRCL calculation 99 ml/min; Estimated Glomerular Filt Rate > 60; Glucose 116 mg/dL (65-110); Potassium 3.7 mmol/L (3.4-5.0); Sodium 138 mmol/L (137-145)
[2022-08-28 05:47] VITALS: BP 114/68; PULSE 91; RESP 18; TEMP 36.6; O2SAT 96
[2022-08-28 08:17] VITALS: BP 136/97; PULSE 98; RESP 18; TEMP 36.6
--- NOTE | 2022-08-28 08:47 | PC.NURSE ---
Spoke with Ness from [facility]. She inquired about labs and will speak to DR. She states if accepted she will need and updated Cert from .
[2022-08-28] MEDS: IBUPROFEN 600 MG TABLET PO (08:52)
--- NOTE | 2022-08-28 09:05 | PC.NURSE ---
At 0700 pt. was laying on stretcher with eyes closed, appeared to be sleeping. Respirations and skin color wnl. Sitter maintaining constant observation.
[2022-08-28 10:40] LABS: Thyroid Stimulating Hormone Reflex 0.889 uIU/mL (0.465-4.68)
--- NOTE | 2022-08-28 11:38 | PC.NURSE ---
Updated face sheet and inpatient cert faxed to [facility].
--- NOTE | 2022-08-28 14:04 | PC.NURSE ---
Reginaldo from [facility] received nurse report. Transportation is being arranged. call back with ETA. [phone]
--- NOTE | 2022-08-28 14:17 | PC.NURSE ---
[facility] accepted transfer to [facility] ETA 1600
== END 2022-08-28 16:08 ==
PROVIDERS: Emergency Medicine; Emergency Provider Emergency Medicine; PCP Family Medicine
DX: T43.592A Poisoning by other antipsychotics and neuroleptics, intentional self-harm, initial encounter (principal); Z20.822 Contact with and (suspected) exposure to COVID-19; F41.9 Anxiety disorder, unspecified; F32.A Depression, unspecified; J45.909 Unspecified asthma, uncomplicated; I10 Essential (primary) hypertension; E78.2 Mixed hyperlipidemia; Z86.16 Personal history of COVID-19; R00.0 Tachycardia, unspecified; R94.31 Abnormal electrocardiogram [ECG] [EKG]
CPT/HCPCS: 36415; 80048; 80053; 80307; 81003; 83605; 83735; 84443; 85025; 85610; 85730; 93005; 96361; 96365; 96366; 96367; 99285; A9270; J3475; J3480; J7030; J7040; J7120; U0003; U0005

== ENCOUNTER 2022-12-05 15:11 | Emergency (ER) | payer OTHER, SELFPAY ==
--- NOTE | ~2022-12-05 | CT_ITS ---
EXAMINATION: CT abdomen pelvis w con DATE: 12/05/2022 17:50 INDICATION: Abdominal pain TECHNIQUE: Computed tomography (CT) of the abdomen and pelvis was performed with 100 mL Omnipaque-350 intravenous contrast. Automated exposure control and iterative reconstruction technique were employe d. The dose-length product was 418.22 mGy-cm. COMPARISON: 06/24/2022 FINDINGS: Lung bases are clear. Heart size normal. No pericardial or pleural effusion. Small to moderate-sized sliding-type hiatal hernia with suggestion of prior Triston type fundoplication. Mild focal hepatic st eatosis along the ligamentum teres. Subcentimeter cyst in segment IVb of the liver. Gallbladder, sple en, pancreas and bilateral adrenal glands are normal. Bilateral nonobstructing nephrolithiasis with 3 mm and 4 mm stones at the upper pole of the left kidney and 2 mm stone at the lower pole of the righ t kidney. Bladder is normal. No abnormal bowel wall thickening or obstruction. There are 3 indetermin ate small linear densities within the lumen of the colon, one at the cecum and the 2 at the proximal sigmoid colon. No free intraperitoneal gas or fluid. No pathologically enlarged abdominal or pelvic l ymphadenopathy. Postoperative change of prior umbilical hernia mesh repair. Mild lumbar levocurvature with mild spondylosis. L5 is sacralized on the left. IMPRESSION: 1. Bilateral nonobstructing nephrolithiasis. 2. Small to moderate-sized sliding-type hiatal hernia with suggestion of prior Triston fundoplication. Reviewed, dictated and finalized at location A. [employer]IES
[2022-12-05 15:39] VITALS: BP 120/80; PULSE 89; RESP 14; TEMP 36.7; O2SAT 98
[2022-12-05] MEDS: KETOROLAC 30 MG/ML VIAL (*BKC) IV PUSH (17:04)
[2022-12-05] MEDS: SODIUM CHLORIDE 0.9% IV 1,000 ML 999 ML IV CONT (17:04)
[2022-12-05 17:07] LABS: Basophils Absolute Auto 0.1 K/mm3 (0.0-0.1); Basophils Percent Auto 0.8 % (0.2-1.2); Eosinophils Absolute Auto 0.3 K/mm3 (0-0.3); Eosinophils Percent Auto 4.2 % (0-4.4); Hematocrit 43.2 % (42.0-52.0); Hemoglobin 14.7 g/dL (14.0-18.0); Immature Granulocyte Absolute 0.02 K/mm3 (0.00-0.031); Immature Granulocyte Percent A 0.3 % (0-0.5); Lymphocytes Absolute Auto 1.92 K/mm3 (0.9-3.2); Lymphocytes Percent Auto 29.6 % (18.3-44.2); Mean Corpuscular Hemoglobin 32.5 pg (26-34); Mean Corpuscular Volume 95.4 fl (80-100); Mean Platelet Volume 10.8 fl (7.4-10.4); Monocytes Absolute Auto 0.7 K/mm3 (0.1-0.6); Neutrophils Absolute Auto 3.6 K/mm3 (1.3-6.7); Neutrophils Percent Auto 55.1 % (45.5-73.1); Platelet Count Result 217 k/mm3 (150-375); Red Blood Count 4.53 M/mm3 (4.6-6.20); Red Cell Distribution Width 13.3 % (11.5-14.5); White Blood Count 6.5 K/mm3 (4.5-10.0)
--- NOTE | 2022-12-05 17:15 | ED.ABDPAIN ---
HPI - Abdominal Pain General Chief Complaint: Abdominal Pain Stated Complaint: stomach pain after lifting Time Seen by Provider: 12/05/22 16:37 Source: RN notes reviewed History of Present Illness HPI narrative: Patient presents emergency department from home for abdominal pain. Patient states pain began several hours prior to arrival when he was lifting several heavy boxes he states he began to have pain just above his umbilical region. He states pain is described as sharp and stabbing and does not radiate. States nothing makes the pain better or worse. States he has a history of previous hernias in this region and feels similar states he has had no hard or protruding areas in this region he denies any fevers or chills nausea vomiting diarrhea or any other symptoms states he took Tylenol for pain with little relief Related Data Home Medications Medication Instructions Recorded Confirmed uhrmmmqp-oykhxarg-kvzos acid 400 1 tablet PO DAILY 04/15/20 10/02/22 mcg-vit K 20 mcg-lycop 300 mcg tablet (Men's Multivitamin) melatonin 10 mg capsule 10 mg PO HS 04/05/21 10/02/22 calcium carbonate 200 mg calcium 200 mg PO PRN PRN Indigestion 10/12/21 10/02/22 (500 mg) chewable tablet (Antacid (calcium carbonate)) loperamide 2 mg tablet 2 mg PO Q4H PRN Diarrhea 10/12/21 10/02/22 sildenafil (pulm.hypertension) 20 20 mg PO .COMPLEX PRN erectile 10/02/22 10/02/22 mg tablet dysfunction Allergies Allergy/AdvReac Type Severity Reaction Status Date / Time dicyclomine AdvReac Mild Nausea Verified 08/26/22 22:13 hydrocodone AdvReac Rash Verified 08/26/22 22:13 Review of Systems Review of Systems: Gen.: Denies fevers or chills ENT: Denies congestion Respiratory: Denies shortness of breath or cough CV: Denies chest pain GI: See HPI Musculoskeletal: Denies back pain or muscle pain Neuro: Denies numbness, tingling, weakness or focal weakness Skin: Denies rash Except as documented, all other systems reviewed and negative [facility] Past Medical History Medical History Abdominal pain Abnormal fasting glucose (08/21/21) fasting glucose 107 on 08/21/2021 Acute bronchitis Acute non-recurrent maxillary sinusitis Asthma Bipolar mood disorder BMI 24.0-24.9, adult BMI 25.0-25.9,adult Chest pain COVID-19 (~09/30/20) Depression Encounter for other specified surgical aftercare Encounter for prostate cancer screening PSA normal at 0.44 on 08/21/2021 Encounter for surgical aftercare following surgery on the digestive system Essential (primary) hypertension ETOH abuse Exposure to COVID-19 virus Fever Fever blister Hernia, hiatal Incisional hernia Iron deficiency iron normal at 162 with hemoglobin normal at 15.6 on 08/21/2021 Lightheadedness Male erectile dysfunction, unspecified total testosterone normal at 587 with free testosterone 99.7 on 08/21/2021 Mixed hyperlipidemia total cholesterol 254, HDL excellent at 64, triglycerides 134 with LDL elevated at 163 08/21/2021 Nausea and vomiting Paraesophageal hernia Pharyngitis Postoperative urinary retention Recurrent ventral hernia Surgical History Surgical History History of hernia surgery lap paraesophageal her rep w/ Triston fundoplication 09/2021 ventral hernia repair with mesh 11/2018 History of incisional hernia repair Lap inc hernia repair w mesh, Da Beti assisted on 05/29. Family History Family History Mother Patient's mother is , Onset Age: 53 Asthma Family history of alcoholism Family history of malignant neoplasm Sibling Patient's sister is in good health Patient's brother is in good health Other Diabetes mellitus Social History Social History Social History: The patient lives with his Ji who is his durable power family law attorney for [employer] [facility]
[2022-12-05 17:16] LABS: Alanine Aminotransferase 30 U/L (6-50); Albumin Level 4.1 g/dL (3.5-5.1); Alkaline Phosphatase 58 U/L (38-126); Anion Gap 6 mmol/L (8-16); Aspartate Amino Transferase 29 U/L (17-59); Bilirubin,Total 0.5 mg/dL (0.2-1.3); Blood Urea Nitrogen 12 mg/dL (9-20); Calcium 8.6 mg/dL (8.4-10.2); Carbon Dioxide 26 mmol/L (22-30); Chloride 108 mmol/L (98-107); Estimated CRCL calculation 109 ml/min; Estimated Glomerular Filt Rate > 60; Glucose 102 mg/dL (65-110); Lipase 44 U/L (23-300); Potassium 4.1 mmol/L (3.4-5.0); Sodium 140 mmol/L (137-145)
[2022-12-05 17:19] LABS: Appearance Urine Clear (Clear); Bilirubin Urine Negative (Negative); Blood Urine Negative (Negative); Color Urine Yellow (Yellow); Glucose Urine UA Negative (Negative); Ketones Urine Negative (Negative); Leukocyte Esterase Ur Negative LEU/UL (Negative); Nitrate Urine Negative (Negative); Protein Urine Negative (Negative); Urobilinogen Urine 0.2 mg/dL (<2.0)
[2022-12-05 17:20] LABS: Add Urine Microscopic? NO
== END 2022-12-05 18:43 | disposition home or self-care (01) ==
PROVIDERS: Emergency Provider Emergency Medicine; PCP Family Medicine
DX: R10.33 Periumbilical pain (principal); F31.9 Bipolar disorder, unspecified; J45.909 Unspecified asthma, uncomplicated
CPT/HCPCS: 36415; 74177; 80053; 81003; 83690; 85025; 96361; 96374; 99284; J1885; J7030; Q9967

== ENCOUNTER 2023-05-08 10:51 | Outpatient (CLI) | payer OTHER, SELFPAY ==
--- NOTE | 2023-05-08 11:06 | ECG_ITS ---
Measurements Intervals [place] Rate: 60 P: 17 UT: 122 QRS: -9 QRSD: 90 T: 28 QT: 391 QTc: 394 Interpretive Statements SINUS RHYTHM INCOMPLETE RIGHT BUNDLE BRANCH BLOCK BORDERLINE ECG COMPARED TO ECG 08/28/2022 05:12:44 NO SIGNIFICANT CHANGES Electronically Signed On 05-08-2023 11:38:09 CDT by Angel Callahan D.O.
== END 2023-05-08 10:52 | disposition home or self-care (01) ==
LOC: ANHCARD 10:53
PROVIDERS: PCP Family Medicine; Visit Provider Nurse Practitioner Family
DX: R07.9 Chest pain, unspecified (principal); I45.10 Unspecified right bundle-branch block
CPT/HCPCS: 93005

== ENCOUNTER 2023-06-08 01:52 | Emergency (ER) | payer OTHER, SELFPAY ==
--- NOTE | ~2023-06-08 | CT_ITS ---
EXAMINATION: CT abdomen pelvis w con DATE: 06/08/2023 04:55 INDICATION: Periumbilical hernia. TECHNIQUE: Computed tomography (CT) of the abdomen and pelvis was performed with 100 mL Omnipaque 350 intravenous contrast. Automated exposure control and iterative reconstruction technique were employe d. The dose-length product was 452.35 mGy-cm. COMPARISON: CT abdomen and pelvis 12/05/2022 FINDINGS: The visualized portions of the lung bases demonstrate mild atelectasis. No pleural effusion . The heart size is normal. No pericardial effusion. There is a small sliding hiatal hernia. There ar e likely changes of fundoplication of the stomach. The liver demonstrates focal steatosis adjacent to the falciform ligament. The gallbladder, spleen, pancreas, and adrenal glands are normal. There is a 3 mm stone in right kidney. There is a 4 mm stone in left kidney. There are no dilated loops of selena l. The appendix is not visualized. There are no pathologically enlarged lymph nodes. There is no free intraperitoneal fluid. There are changes of umbilical hernia repair. There is mild lumbar and thorac ic spondylosis. IMPRESSION: 1. Changes of umbilical hernia repair. 2. Small sliding hiatal hernia with changes of fundoplication. Reviewed, dictated and finalized at location E.
[2023-06-08 01:57] VITALS: BP 125/79; PULSE 84; RESP 20; TEMP 36.5; O2SAT 100
[2023-06-08 04:26] LABS: Basophils Percent Auto 0.4 % (0.2-1.2); Eosinophils Absolute Auto 0.3 K/mm3 (0-0.3); Eosinophils Percent Auto 2.8 % (0-4.4); Hematocrit 42.4 % (42.0-52.0); Hemoglobin 14.5 g/dL (14.0-18.0); Immature Granulocyte Absolute 0.03 K/mm3 (0.00-0.031); Immature Granulocyte Percent A 0.3 % (0-0.5); Lymphocytes Absolute Auto 1.02 K/mm3 (0.9-3.2); Lymphocytes Percent Auto 10.2 % (18.3-44.2); Mean Corpuscular HGB Conc 34.2 g/dl (32-36); Mean Corpuscular Hemoglobin 31.7 pg (26-34); Mean Corpuscular Volume 92.8 fl (80-100); Mean Platelet Volume 11.1 fl (7.4-10.4); Monocytes Percent Auto 10.1 % (2.6-8.5); Neutrophils Absolute Auto 7.7 K/mm3 (1.3-6.7); Neutrophils Percent Auto 76.2 % (45.5-73.1); Platelet Count Result 155 k/mm3 (150-375); Red Blood Count 4.57 M/mm3 (4.6-6.20)
[2023-06-08] MEDS: KETOROLAC 15 MG/ML VIAL (*BKC) IV PUSH (04:28)
[2023-06-08 04:29] VITALS: BP 132/74; PULSE 90; RESP 16; O2SAT 100
--- NOTE | 2023-06-08 04:29 | ED.GENADULT ---
HPI - General Adult General Chief complaint: Abdominal Pain Stated complaint: abd pain Time Seen by Provider: 06/08/23 03:02 History of Present Illness HPI narrative: This is a 42-year-old male with history of multiple abdominal hernias presenting with abdominal pain. Patient says he was lifting heavy object at work when he started to feel a sharp pain to the left of his belly button. The pain is constant, 8 out 10 intensity, nonradiating and worse with movement. He does not note any swelling or bulges. Patient relates this pain to when he has had issues with hernias in the past. Related Data Home Medications Medication Instructions Recorded Confirmed djmtwxzi-fjoqeddc-lwrvs acid 400 1 tablet PO DAILY 04/15/20 05/01/23 mcg-vit K 20 mcg-lycop 300 mcg tablet (Men's Multivitamin) melatonin 10 mg capsule 10 mg PO HS 04/05/21 05/01/23 calcium carbonate 200 mg calcium 200 mg PO PRN PRN Indigestion 10/12/21 05/01/23 (500 mg) chewable tablet (Antacid (calcium carbonate)) loperamide 2 mg tablet 2 mg PO Q4H PRN Diarrhea 10/12/21 05/01/23 sildenafil (pulm.hypertension) 20 20 mg PO .COMPLEX PRN erectile 10/02/22 05/01/23 mg tablet dysfunction Allergies Allergy/AdvReac Type Severity Reaction Status Date / Time dicyclomine AdvReac Mild Nausea Verified 06/08/23 02:27 hydrocodone AdvReac Rash Verified 06/08/23 02:27 [facility] Past Medical History Medical History Abdominal pain Abnormal fasting glucose (08/21/21) fasting glucose 107 on 08/21/2021 Acute bronchitis Acute non-recurrent maxillary sinusitis Asthma Bipolar mood disorder BMI 24.0-24.9, adult BMI 25.0-25.9,adult Chest pain COVID-19 (~09/30/20) Depression Encounter for other specified surgical aftercare Encounter for prostate cancer screening PSA normal at 0.44 on 08/21/2021 Encounter for surgical aftercare following surgery on the digestive system Essential (primary) hypertension ETOH abuse Exposure to COVID-19 virus Fever Fever blister Hernia, hiatal Incisional hernia Iron deficiency iron normal at 162 with hemoglobin normal at 15.6 on 08/21/2021 Lightheadedness Male erectile dysfunction, unspecified total testosterone normal at 587 with free testosterone 99.7 on 08/21/2021 Mixed hyperlipidemia total cholesterol 254, HDL excellent at 64, triglycerides 134 with LDL elevated at 163 08/21/2021 Nausea and vomiting Paraesophageal hernia Pharyngitis Postoperative urinary retention Recurrent ventral hernia Surgical History Surgical History History of hernia surgery lap paraesophageal her rep w/ Triston fundoplication 09/2021 ventral hernia repair with mesh 11/2018 History of incisional hernia repair Lap inc hernia repair w mesh, Da Beti assisted on 05/29. Family History Family History Mother Patient's mother is , Onset Age: 53 Asthma Family history of alcoholism Family history of malignant neoplasm Sibling Patient's sister is in good health Patient's brother is in good health Other Diabetes mellitus Social History Social History Social History: The patient lives with his Ji who is his durable power assistant county attorney for healthcare. The patient is a full code. The patient has no children. 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 The patient is lifelong nonsmoker. Smoking status: Never smoker Alcohol intake: current Alcohol use details: only drinking about 2 drinks a month after hospital stay. Substance use: never Substance use type: prescription drug Lack of Transportation: No Lack of Food: Never True Current Housing: I Have Housing Concerned About Future Housing: No Difficulty Paying Gas/Electric Bills: YES Difficulty Paying for Meds: YES Currently Unemployed: No Education: [employer]
[2023-06-08 04:37] LABS: Alanine Aminotransferase 23 U/L (6-50); Albumin Level 4.2 g/dL (3.5-5.1); Alkaline Phosphatase 60 U/L (38-126); Anion Gap 8 mmol/L (8-16); Aspartate Amino Transferase 23 U/L (17-59); Bilirubin,Total 0.5 mg/dL (0.2-1.3); Blood Urea Nitrogen 19 mg/dL (9-20); Calcium 8.9 mg/dL (8.4-10.2); Carbon Dioxide 27 mmol/L (22-30); Chloride 102 mmol/L (98-107); Estimated CRCL calculation 108 ml/min; Estimated Glomerular Filt Rate > 60; Glucose 118 mg/dL (65-110); Lactic Acid Reflex 1.2 mmol/L (0.7-2.0); Lipase 27 U/L (23-300); Potassium 4.1 mmol/L (3.4-5.0); Sodium 137 mmol/L (137-145)
[2023-06-08] MEDS: ACETAMINOPHEN 500 MG TABLET 1000 MG PO (05:06)
== END 2023-06-08 05:55 | disposition home or self-care (01) ==
PROVIDERS: Emergency Provider Emergency Medicine; PCP Family Medicine
DX: R10.9 Unspecified abdominal pain (principal); J45.909 Unspecified asthma, uncomplicated; I10 Essential (primary) hypertension; E61.1 Iron deficiency; E78.2 Mixed hyperlipidemia; F31.9 Bipolar disorder, unspecified; Z86.16 Personal history of COVID-19; K44.9 Diaphragmatic hernia without obstruction or gangrene
CPT/HCPCS: 36415; 74177; 80053; 83605; 83690; 85025; 96374; 99284; A9270; J1885; Q9967

== ENCOUNTER 2024-01-17 13:34 | Emergency (ER) | payer OTHER, SELFPAY ==
[2024-01-17 13:50] VITALS: BP 141/82; PULSE 96; RESP 16; TEMP 36.6; O2SAT 99
[2024-01-17 15:07] LABS: Basophils Percent Auto 0.4 % (0.2-1.2); Eosinophils Absolute Auto 0.1 K/mm3 (0-0.3); Eosinophils Percent Auto 0.8 % (0-4.4); Hematocrit 43.6 % (42.0-52.0); Immature Granulocyte Absolute 0.01 K/mm3 (0.00-0.031); Immature Granulocyte Percent A 0.1 % (0-0.5); Lymphocytes Absolute Auto 1.45 K/mm3 (0.9-3.2); Lymphocytes Percent Auto 18.3 % (18.3-44.2); Mean Corpuscular HGB Conc 34.4 g/dl (32-36); Mean Corpuscular Hemoglobin 31.6 pg (26-34); Mean Platelet Volume 10.2 fl (7.4-10.4); Monocytes Absolute Auto 0.7 K/mm3 (0.1-0.6); Monocytes Percent Auto 9.2 % (2.6-8.5); Neutrophils Absolute Auto 5.6 K/mm3 (1.3-6.7); Neutrophils Percent Auto 71.2 % (45.5-73.1); Platelet Count Result 250 k/mm3 (150-375); Red Blood Count 4.74 M/mm3 (4.6-6.20); Red Cell Distribution Width 13.8 % (11.5-14.5); White Blood Count 7.9 K/mm3 (4.5-10.0)
[2024-01-17 15:10] LABS: Appearance Urine Clear (Clear); Bilirubin Urine Negative (Negative); Blood Urine Negative (Negative); Color Urine Yellow (Yellow); Glucose Urine UA Negative (Negative); Ketones Urine 1+ mg/dL (Negative); Leukocyte Esterase Ur Negative LEU/UL (Negative); Nitrate Urine Negative (Negative); Protein Urine Negative (Negative); Specific Grav Ur 1.018 (1.001-1.035); pH Urine 8.5 (5.0-9.0)
[2024-01-17 15:25] LABS: Add Urine Microscopic? NO
[2024-01-17 15:27] LABS: Alanine Aminotransferase 21 U/L (6-50); Albumin Level 4.6 g/dL (3.5-5.1); Alkaline Phosphatase 75 U/L (38-126); Anion Gap 4 mmol/L (8-16); Aspartate Amino Transferase 28 U/L (17-59); Bilirubin,Total 0.6 mg/dL (0.2-1.3); Blood Urea Nitrogen 12 mg/dL (9-20); Calcium 9.5 mg/dL (8.4-10.2); Carbon Dioxide 29 mmol/L (22-30); Chloride 103 mmol/L (98-107); Estimated CRCL calculation 120 ml/min; Estimated Glomerular Filt Rate > 60; Ethanol < 10 mg/dL (<10); Glucose 103 mg/dL (65-110); Potassium 3.9 mmol/L (3.4-5.0); Sodium 136 mmol/L (137-145)
[2024-01-17 15:28] LABS: Acetaminophen < 10 ug/mL (10-30); Salicylate < 1.0 mg/dL (2-20)
[2024-01-17 15:29] LABS: Amphetamine Screen Urine Negative (Negative); Barbiturate Screen Urine Negative (Negative); Benzodiazepines Screen Urine Negative (Negative); Cannabinoid Screen Urine Negative (Negative); Cocaine Screen Urine Negative (Negative); Methadone Screen Urine Negative (Negative); Opiate Screen Urine Negative (Negative); Phencyclidine Screen Urine Negative (Negative)
[2024-01-17 15:45] LABS: SARS-CoV-2 RNA PCR Negative (Negative)
--- NOTE | 2024-01-17 18:09 | ED.ALCOHOL ---
HPI - Alcohol General Chief Complaint: Alcohol Stated Complaint: etoh withdraws Time Seen by Provider: 01/17/24 17:02 Source: patient Mode of arrival: ambulatory Limitations: no limitations History of Present Illness HPI narrative: This is a 43-year-old male that presents to the emergency department for alcohol abuse. Reports he has been dealing with health issues with his . He has returned to drinking to cope with this. Reports he has 6-8 drinks nightly. He would like to stop drinking alcohol. He tried to get in touch with his PCP, but was unable to see him until Saturday. Presents to the ER for help. Denies previous history of withdrawal seizures. Reports no current thoughts of harming himself or anyone else. Related Data Home Medications Medication Instructions Recorded Confirmed wwvskhca-zrsvkzhu-qdwlt acid 400 1 tablet PO DAILY 04/15/20 12/17/23 mcg-vit K 20 mcg-lycop 300 mcg tablet (Men's Multivitamin) melatonin 10 mg capsule 10 mg PO HS 04/05/21 12/17/23 calcium carbonate 200 mg calcium 200 mg PO PRN PRN Indigestion 10/12/21 12/17/23 (500 mg) chewable tablet (Antacid (calcium carbonate)) loperamide 2 mg tablet 2 mg PO Q4H PRN Diarrhea 10/12/21 12/17/23 sildenafil (pulm.hypertension) 20 20 mg PO .COMPLEX PRN erectile 10/02/22 12/17/23 mg tablet dysfunction magnesium oxide 250 mg PO BID 08/23/23 12/17/23 omeprazole 20 mg tablet,delayed 40 mg PO DAILY 12/17/23 12/17/23 release Allergies Allergy/AdvReac Type Severity Reaction Status Date / Time dicyclomine AdvReac Mild Nausea Verified 06/08/23 02:27 hydrocodone AdvReac Rash Verified 06/08/23 02:27 Review of Systems Review of Systems: CONSTITUTIONAL: Denies fever PSYCHIATRIC: Reports anxiety and depression. All systems reviewed & are unremarkable except as noted in HPI and below PMFSH Past Medical History Medical History (Updated 12/17/23 @ 16:02 by Richard Islas MD) Abdominal pain Abnormal fasting glucose (08/21/21) fasting glucose 107 on 08/21/2021 Acute bronchitis Acute non-recurrent maxillary sinusitis Asthma Bipolar mood disorder BMI 22.0-22.9, adult BMI 24.0-24.9, adult BMI 25.0-25.9,adult Chest pain COVID-19 (~09/30/20) Depression Encounter for other specified surgical aftercare Encounter for prostate cancer screening PSA normal at 0.44 on 08/21/2021 Encounter for surgical aftercare following surgery on the digestive system Essential (primary) hypertension ETOH abuse Exposure to COVID-19 virus Fever Fever blister Hernia, hiatal Incisional hernia Iron deficiency iron normal at 162 with hemoglobin normal at 15.6 on 08/21/2021 Lightheadedness Male erectile dysfunction, unspecified total testosterone normal at 587 with free testosterone 99.7 on 08/21/2021 Mixed hyperlipidemia total cholesterol 254, HDL excellent at 64, triglycerides 134 with LDL elevated at 163 08/21/2021 Nausea and vomiting Paraesophageal hernia Pharyngitis Postoperative urinary retention Recurrent ventral hernia Restless legs syndrome (~08/23/23) Ureteral stone Surgical History Surgical History History of hernia surgery lap paraesophageal her rep w/ Triston fundoplication 09/2021 ventral hernia repair with mesh 11/2018 History of incisional hernia repair Lap inc hernia repair w mesh, Da Beti assisted on 05/29. Family History Family History Mother Patient's mother is , Onset Age: 53 Asthma Family history of alcoholism Family history of malignant neoplasm Sibling Patient's sister is in good health Patient's brother is in good health Other Diabetes mellitus Social History Social History Social History: The patient lives with his Ji who is his durable power insurance attorney for healthcare. The patient is a full code. The patient has no children. [facility]
[2024-01-17 18:18] VITALS: BP 132/70; PULSE 87; RESP 16; O2SAT 99
== END 2024-01-17 18:19 | disposition home or self-care (01) ==
PROVIDERS: Preventive Medicine Aerospace Medicine; Emergency Provider Physician Assistant; PCP Family Medicine
DX: F10.10 Alcohol abuse, uncomplicated (principal); Z11.52 Encounter for screening for COVID-19; J45.909 Unspecified asthma, uncomplicated; I10 Essential (primary) hypertension; E61.1 Iron deficiency; K44.9 Diaphragmatic hernia without obstruction or gangrene; Z86.16 Personal history of COVID-19; E78.2 Mixed hyperlipidemia; G25.81 Restless legs syndrome; Y90.0 Blood alcohol level of less than 20 mg/100 ml
CPT/HCPCS: 36415; 80053; 80307; 84443; 85025; 87635; 99284